=== PATIENT | female | born 1970 | race African-American/Black ===

== ENCOUNTER 2016-12-24 06:55 | Day surgery (SDC) | payer MEDICARE, OTHER ==
[2016-12-22 08:28] VITALS: BMI 36.6
[~2016-12-24 06:55] MED LIST: LACTATED RINGERS 1,000 ML IV SCH
[2016-12-24] MEDS ORDERED: LACTATED RINGERS 1,000 ML IV ONE (07:43)
[2016-12-24 07:49] VITALS: TEMP 97.7
[2016-12-24 08:07] LABS: Glucose,Whole Blood 82 mg/dL (75-99)
[2016-12-24] MEDS ORDERED: LIDOCAINE 1% INJ 10MG/ML (20 ML MDV) ONE (08:08)
[2016-12-24] MEDS ORDERED: PROPOFOL 10 MG/ML 20 ML VIAL IV ONE (08:08)
--- NOTE | 2016-12-24 08:10 | P.GSHP ---
History of Present Illness H&P Date: 12/24/16 Chief Complaint: Change in bowel habits Patient here today for colonoscopy. She's been having frequent episodes bloating constipation and some diarrhea at times. Denies rectal bleeding. No prior colonoscopy. Past Medical History Past Medical History: Asthma, Diabetes Mellitus, Fibromyalgia, Pulmonary Embolus (PE), Sleep Apnea/CPAP/BIPAP, Thyroid Disorder Additional Past Medical History / Comment(s): OSAmaintained on CPAP pressure of 10 cm of water, morbid obesity. HX PE AFTER HYSTERECTOMY 2013 History of Any Multi-Drug Resistant Organisms: None Reported Past Surgical History: Back Surgery, Bariatric Surgery, Section, Hysterectomy, Tubal Ligation Additional Past Surgical History / Comment(s): LAP BAND 2007, THYROIDECTOMY, Repair of left ureter Past Anesthesia/Blood Transfusion Reactions: No Reported Reaction Smoking Status: Never smoker - Past Family History Mother Family Medical History: No Reported History Medications and Allergies Home Medications Medication Instructions Recorded Confirmed Type metFORMIN HCL 1,000 mg PO BID 03/09/14 12/24/16 History Cholecalciferol [Vitamin D3] 2,000 unit PO DAILY 05/14/16 12/24/16 History Cyanocobalamin [Vitamin B-12] 500 mcg PO DAILY 05/14/16 12/24/16 History FLUoxetine HCL [PROzac] 40 mg PO DAILY 05/14/16 12/24/16 History INSULIN LISPRO (For Pump) [humaLOG 0.01 units SQ-PUMP CONTINUOUS 05/14/16 History (For Pump)] Biotin 300 mcg PO HS 12/22/16 12/24/16 History Ibuprofen [Motrin] 800 mg PO Q8H PRN 12/22/16 12/24/16 History Levothyroxine Sodium [Synthroid] 150 mcg PO DAILY 12/22/16 12/24/16 History Magnesium Gluconate [Magonate] 500 mg PO DAILY 12/22/16 12/24/16 History Multivit-Min36/Iron/Folic Acid 1 each PO HS 12/22/16 12/24/16 History [Geritol Complete Tablet] Omeprazole 40 mg PO DAILY 12/22/16 12/24/16 History Pioglitazone [Actos] 30 mg PO DAILY 12/22/16 12/24/16 History Allergies Allergy/AdvReac Type Severity Reaction Status Date / Time No Known Allergies Allergy Verified 12/24/16 07:50 Surgical - Exam Vital Signs Temp Pulse Resp BP Pulse Ox 97.7 F 68 18 111/73 99 12/24/16 07:47 12/24/16 07:47 12/24/16 07:47 12/24/16 07:47 12/24/16 07:47 Physical exam: General: Well-developed, well-nourished HEENT: Normocephalic, sclerae nonicteric Abdomen: Nontender, nondistended Extremities: No edema Neuro: Alert and oriented Assessment and Plan (1) Change in bowel habits Narrative/Plan: Will proceed with colonoscopy at this Status: Acute
--- NOTE | 2016-12-24 08:22 | P.PCN ---
Date of Procedure: 12/24/16 Preoperative Diagnosis: Postoperative Diagnosis: Procedure(s) Performed: PREOPERATIVE DIAGNOSIS: Change in bowel habits POSTOPERATIVE DIAGNOSIS: Normal exam PROCEDURE: Colonoscopy ANESTHESIA: MAC SURGEON: Edenilson Judge M.D. SPECIMENS: None ENDOSCOPIC PROCEDURE: The patient was placed on the endoscopy table in the left decubitus position. The Olympus colonoscope was inserted into the anus and passed under direct visualization to the base of the cecum. The appendiceal orifice was visualized. From that point the scope was slowly withdrawn inspecting all surfaces carefully. There were no neoplastic inflammatory or polypoid lesions throughout the cecum, ascending, transverse, descending, sigmoid and rectum. There was no diverticulosis noted. Digital rectal examination was normal. The patient was taken to the recovery room in stable condition per anesthesia guidelines. RECOMMENDATIONS: Increase fiber. Follow-up colonoscopy 10 years. Implants: Indications for Procedure: Operative Findings: Description of Procedure:
[2016-12-24 08:37] VITALS: RESP 18
[2016-12-24 08:55] LABS: Glucose,Whole Blood 79 mg/dL (75-99)
[2016-12-24 09:24] VITALS: BP 111/65; PULSE 70
== END 2016-12-24 11:30 | disposition home or self-care (01) ==
LOC: ORWHC2ENDO 06:55
PROVIDERS: ATTEND Surgery
DX: R19.4 Change in bowel habit (principal); J45.909 Unspecified asthma, uncomplicated; E11.9 Type 2 diabetes mellitus without complications; Z79.4 Long term (current) use of insulin; Z79.84 Long term (current) use of oral hypoglycemic drugs; M79.7 Fibromyalgia; G47.33 Obstructive sleep apnea (adult) (pediatric); Z99.89 Dependence on other enabling machines and devices; E07.9 Disorder of thyroid, unspecified; Z79.1 Long term (current) use of non-steroidal anti-inflammatories (NSAID); Z79.899 Other long term (current) drug therapy
CPT/HCPCS: 45378; J2001; J2704

== ENCOUNTER 2017-05-10 10:39 | Emergency (ER) | payer MEDICARE, OTHER ==
[2017-05-10] MEDS ORDERED: ONDANSETRON 4 MG/2 ML VIAL IVP STA (11:10)
[2017-05-10] MEDS ORDERED: SODIUM CHLORIDE 0.9% 500 ML IV STA (11:10)
[2017-05-10] MEDS ORDERED: HYDROmorphone 0.5 MG/0.5 ML SYRINGE IVP STA (11:10)
[2017-05-10] MEDS ORDERED: PANTOPRAZOLE 40 MG/10 ML VIAL IVP STA (11:10)
[2017-05-10] MEDS ORDERED: SODIUM CHLORIDE 0.9% 1,000 ML IV STA (11:10)
[2017-05-10 11:24] LABS: Glucose,Whole Blood 112 mg/dL (75-99)
[2017-05-10 11:27] LABS: Basophils # (A) 0.1 k/uL (0-0.2); Basophils % (A) 1 %; CH 29.4; CHCM 31.8; Eosinophils # (A) 0.1 k/uL (0-0.7); Eosinophils % (A) 1 %; HDW 2.19; HGB 13.4 gm/dL (11.4-16.0); Luc # (Auto) 0.09; Luc % (Auto) 1; Lymphocytes # (A) 1.4 k/uL (1.0-4.8); Lymphocytes % (A) 12 %; MCH 29.7 pg (25.0-35.0); MCV 92.8 fL (80.0-100.0); Mean Platelet Volume 7.8; Monocytes # (A) 0.5 k/uL (0-1.0); Monocytes % (A) 4 %; Neutrophils # (A) 9.3 k/uL (1.3-7.7); Neutrophils % (A) 82 %; RBC 4.53 m/uL (3.80-5.40); RDW 14.2 % (11.5-15.5); WBC 11.3 k/uL (3.8-10.6)
[2017-05-10 11:34] LABS: ALT 31 U/L (9-52); AST 21 U/L (14-36); Alkaline Phosphatase 75 U/L (38-126); Amylase 59 U/L (30-110); Anion Gap 10 mmol/L; Blood Urea Nitrogen 12 mg/dL (7-17); Calcium 9.6 mg/dL (8.4-10.2); Carbon Dioxide 23 mmol/L (22-30); Chloride 104 mmol/L (98-107); Glucose 123 mg/dL (74-99); Non-African American GFR(MDRD) >60 (>60 ml/min/1.73 sqM); Potassium 4.6 mmol/L (3.5-5.1); Sodium 137 mmol/L (137-145); Total Bilirubin 0.3 mg/dL (0.2-1.3); Total Protein 7.7 g/dL (6.3-8.2)
--- NOTE | 2017-05-10 11:44 | XR ---
EXAMINATION TYPE: XR abdomen 2V , 2 VIEWS DATE OF EXAM ORDERED: 05/10/2017 HISTORY: abdominal pain. COMPARISON: Previous study dated 05/14/2016. FINDINGS: The lung bases are clear. There is been a previous interpedicular fusion at L4, L5 and S1. There is a lap band in place. Positi oning appears unremarkable. The abdominal gas pattern is within normal limits. There is no evidence of obstruction or free air. T here are scattered air-fluid levels. No unusual calcifications are seen. IMPRESSION: FINDINGS CONSISTENT WITH MILD ILEUS.
[2017-05-10 12:06] LABS: Prothrombin Time 10.6 sec (9.0-12.0)
[2017-05-10 12:09] LABS: Appearance,Urine Clear (Clear); Bilirubin,Urine Negative (Negative); Glucose,Urine (UA) Negative (Negative); Ketones,Urine Negative (Negative); Leukocyte Esterase,Urine Negative (Negative); Nitrite,Urine Negative (Negative); Protein,Urine Trace (Negative); Specific Gravity,Urine 1.015 (1.001-1.035); UA Billing (MACRO vs. MICRO) CHEM; Urobilinogen,Urine <2.0 mg/dL (<2.0)
[2017-05-10 12:46] VITALS: RESP 18
--- NOTE | 2017-05-10 13:55 | ED ---
General Adult HPI - General Chief complaint: Abdominal Pain Stated complaint: abdominal pain Time Seen by Provider: 05/10/17 10:52 Source: patient, RN notes reviewed, old records reviewed Mode of arrival: ambulatory Limitations: no limitations - History of Present Illness Initial comments: Chief complaint history of present illness is a 47-year-old female with a history of diabetes. She's also had a history of gastroparesis. Patient reports morning when she awakened she ate some food and then vomited soon thereafter had a sharp pain in the epigastric region. She states when she stands up straight and stretches her abdomen in the epigastric region and hurts. When she eats it was causing discomfort. - Related Data Home Medications Medication Instructions Recorded Confirmed metFORMIN HCL 1,000 mg PO BID 03/09/14 05/10/17 FLUoxetine HCL [PROzac] 40 mg PO DAILY 05/14/16 05/10/17 Ibuprofen [Motrin] 800 mg PO Q8H PRN 12/22/16 05/10/17 Multivit-Min36/Iron/Folic Acid 1 tab PO HS 12/22/16 05/10/17 [Geritol Complete Tablet] Omeprazole 40 mg PO DAILY 12/22/16 05/10/17 Pioglitazone [Actos] 30 mg PO DAILY 12/22/16 05/10/17 Cholecalciferol (Vitamin D3) 10,000 unit PO DAILY 05/10/17 05/10/17 [Vitamin D3] DULoxetine HCL [Cymbalta] 60 mg PO DAILY 05/10/17 05/10/17 HYDROcodone/APAP 10-325MG [[place] 1 tab PO Q6H PRN 05/10/17 05/10/17 10-325] INSULIN LISPRO (humaLOG) [humaLOG] See Protocol SQ AC-TID 05/10/17 05/10/17 Levothyroxine Sodium [Synthroid] 175 mcg PO DAILY 05/10/17 05/10/17 Liraglutide [Victoza 2-Soham] 1.8 mg SQ DAILY 05/10/17 05/10/17 Magnesium Oxide [Mag-Ox] 250 mg PO DAILY 05/10/17 05/10/17 Melatonin 5 mg PO HS 05/10/17 05/10/17 Montelukast [Singulair] 10 mg PO HS 05/10/17 05/10/17 Vitamin C/Biotin [Hair, Skin and 1 tab PO DAILY 05/10/17 05/10/17 Nails] tiZANidine [Zanaflex] 4 mg PO HS PRN 05/10/17 05/10/17 Previous Rx's Medication Instructions Recorded Metoclopramide HCl [Reglan] 5 mg PO AC-TID #90 tablet 05/10/17 Allergies Allergy/AdvReac Type Severity Reaction Status Date / Time No Known Allergies Allergy Verified 05/10/17 11:10 Review of Systems ROS Statement: Those systems with pertinent positive or pertinent negative responses have been documented in the HPI. Review of systems no headache no chest pain no shortness of breath she has epigastric discomfort when she eats and when she stands up straight. She did vomit there is no evidence of any blood in the vomitus. No black stool. She has normal bowel movements daily. No complaint of any neuro deficits. All systems are reviewed. Past medical problems significant for asthma, insulin- dependent diabetes mellitus, fibromyalgia, pulmonary embolism after having had a partial hysterectomy. Hypothyroidism, sleep disorder,. The patient never smoked. Drinks alcohol only on occasion. Her surgeries include back surgery, bariatric surgery. Patient's had 2 C-sections partial hysterectomy, preceded by tubal ligation in the LAP-BAND was done at 2007. Family history no cancers. Others have had high blood pressure diabetes. Patient denies any ALLERGIES. ROS Other: All systems not noted in ROS Statement are negative. Past Medical History Past Medical History: Asthma, Diabetes Mellitus, Fibromyalgia, Pulmonary Embolus (PE), Sleep Apnea/CPAP/BIPAP, Thyroid Disorder Additional Past Medical History / Comment(s): OSAmaintained on CPAP pressure of 10 cm of water, morbid obesity. HX PE AFTER HYSTERECTOMY 2013 History of Any Multi-Drug Resistant Organisms: None Reported Past Surgical History: Back Surgery, Bariatric Surgery, Section, Hysterectomy, Tubal Ligation Additional Past Surgical History / Comment(s): LAP BAND 2007, THYROIDECTOMY, Repair of left ureter Past Anesthesia/Blood Transfusion Reactions: No Reported Reaction Past Psychological History: Anxiety, Depression Smoking Status: Never smoker Past Alcohol Use History: Occasional Past Drug Use History: None Reported - Past Family History Mother Family Medical History: No Reported History General Exam - General Exam Comments Initial Comments: General: The patient is awake and alert, complains of epigastric discomfort when she pushes on the epigastrium or when she stands up straight and stretches. Otherwise when she lays down with herself slightly bent over she has no discomfort. Vital signs temperature 100 pulse 11 respiratory rate 16 pulse ox 90% room air blood pressure 115/72. Patient reports in the past she's had this same problem which turned out to be gastroparesis she had low-grade temperature as well. Denies any other reason for a fever. Eye: Pupils are equal, round and reactive to light, extra-ocular movements are intact ; there is normal conjunctiva bilaterally. No signs of icterus. Ears, nose, mouth and throat: There are moist mucous membranes and no oral lesions. Neck: The neck is supple, there is no tenderness, thyroid not enlarged, no anterior cervical lymphadenopathy. Cardiovascular: There is a regular rate and rhythm. No murmur, rub or gallop is appreciated. Respiratory: Lungs are clear to auscultation, respirations are non-labored, breath sounds are equal. No wheezes, stridor, rales, or rhonchi. Gastrointestinal: Epigastric discomfort to deep palpation. Slightly hypoactive bowel sounds. No back pain at this time. No organomegaly. Back: There is no tenderness to palpation in the midline. There is no obvious deformity. Musculoskeletal: Normal ROM, no tenderness, There is no pedal edema. There is no calf tenderness or swelling. Sensation intact. Neurological: No evidence of or any complaints of any neuro deficits. Skin: Skin is warm and dry and no rashes or lesions are noted. Psychiatric: Patient's cooperative, appropriate mood and affect. Limitations: no limitations Course Vital Signs 05/10/17 05/10/17 05/10/17 10:47 12:44 13:17 Temperature 100 F H 99.5 F 98.6 F Pulse Rate 101 H 60 84 Respiratory 16 18 18 Rate Blood Pressure 115/72 118/65 140/66 O2 Sat by Pulse 98 97 97 Oximetry Medical Decision Making - Medical Decision Making Rectal decision making; patient's white count 11.3 hemoglobin 13 hematocrit of 42 with a potassium 4.6 BUN 12 creatinine 0.7 and GFR greater than 60. Glucose 123. Amylase lipase normal limits. Plasma lactic acid 1.5. Troponin less than 0.012. Patient's resting comfortably after receiving IV medications including Reglan. Patient reports in the past she is take Reglan regularly which controlled her gastroparesis. But she eventually stopped taking several months because her physician said she may develop toward dyskinesia. The patient will be following up with her family physician but she will be restarted on the Reglan at this time for resolution of her discomfort. The patient was able to drink fluids in emergency room without discomfort. Patient states she is willing rated go home follow-up with family physician. - Lab Data Result diagrams: 05/10/17 11:15 05/10/17 11:15 Lab Results 05/10/17 05/10/17 05/10/17 Range/Units 11:12 11:15 11:15 WBC 11.3 H (3.8-10.6) k/uL RBC 4.53 (3.80-5.40) m/uL Hgb 13.4 (11.4-16.0) gm/dL Hct 42.0 (34.0-46.0) % MCV 92.8 (80.0-100.0) fL MCH 29.7 (25.0-35.0) pg MCHC 32.0 (31.0-37.0) g/dL RDW 14.2 (11.5-15.5) % Plt Count 302 (150-450) k/uL Neutrophils % 82 % Lymphocytes % 12 % Monocytes % 4 % Eosinophils % 1 % Basophils % 1 % Neutrophils # 9.3 H (1.3-7.7) k/uL Lymphocytes # 1.4 (1.0-4.8) k/uL Monocytes # 0.5 (0-1.0) k/uL Eosinophils # 0.1 (0-0.7) k/uL Basophils # 0.1 (0-0.2) k/uL PT (9.0-12.0) sec INR (<1.2) Sodium 137 (137-145) mmol/L Potassium 4.6 (3.5-5.1) mmol/L Chloride 104 (98-107) mmol/L Carbon Dioxide 23 (22-30) mmol/L Anion Gap 10 mmol/L BUN 12 (7-17) mg/dL Creatinine 0.70 (0.52-1.04) mg/dL Est GFR (MDRD) Af Amer >60 (>60 ml/min/1.73 sqM) Est GFR (MDRD) Non-Af >60 (>60 ml/min/1.73 sqM) Glucose 123 H (74-99) mg/dL POC Glucose (mg/dL) 112 H (75-99) mg/dL POC Glu Zipper Lining Folder ID Zeina Morales Plasma Lactic Acid [place] (0.7-2.0) mmol/L Calcium 9.6 (8.4-10.2) mg/dL Total Bilirubin 0.3 (0.2-1.3) mg/dL AST 21 (14-36) U/L ALT 31 (9-52) U/L Alkaline Phosphatase 75 (38-126) U/L Troponin I (0.000-0.034) ng/mL Total Protein 7.7 (6.3-8.2) g/dL Albumin 3.9 (3.5-5.0) g/dL Amylase 59 (30-110) U/L Lipase 94 (23-300) U/L Urine Color Urine Appearance (Clear) Urine pH (5.0-8.0) Ur Specific [place] (1.001-1.035) Urine Protein (Negative) Urine Glucose (UA) (Negative) Urine Ketones (Negative) Urine Blood (Negative) Urine Nitrite (Negative) Urine Bilirubin (Negative) Urine Urobilinogen (<2.0) mg/dL Ur Leukocyte Esterase (Negative) 05/10/17 05/10/17 05/10/17 Range/Units 11:15 11:15 11:15 WBC (3.8-10.6) k/uL RBC (3.80-5.40) m/uL Hgb (11.4-16.0) gm/dL Hct (34.0-46.0) % MCV (80.0-100.0) fL MCH (25.0-35.0) pg MCHC (31.0-37.0) g/dL RDW (11.5-15.5) % Plt Count (150-450) k/uL Neutrophils % % Lymphocytes % % Monocytes % % Eosinophils % % Basophils % % Neutrophils # (1.3-7.7) k/uL Lymphocytes # (1.0-4.8) k/uL Monocytes # (0-1.0) k/uL Eosinophils # (0-0.7) k/uL Basophils # (0-0.2) k/uL PT 10.6 (9.0-12.0) sec INR 1.0 (<1.2) Sodium (137-145) mmol/L Potassium (3.5-5.1) mmol/L Chloride (98-107) mmol/L Carbon Dioxide (22-30) mmol/L Anion Gap mmol/L BUN (7-17) mg/dL Creatinine (0.52-1.04) mg/dL Est GFR (MDRD) Af Amer (>60 ml/min/1.73 sqM) Est GFR (MDRD) Non-Af (>60 ml/min/1.73 sqM) Glucose (74-99) mg/dL POC Glucose (mg/dL) (75-99) mg/dL POC Glu Zipper Lining Folder ID Plasma Lactic Acid [place] 1.5 (0.7-2.0) mmol/L Calcium (8.4-10.2) mg/dL Total Bilirubin (0.2-1.3) mg/dL AST (14-36) U/L ALT (9-52) U/L Alkaline Phosphatase (38-126) U/L Troponin I <0.012 (0.000-0.034) ng/mL Total Protein (6.3-8.2) g/dL Albumin (3.5-5.0) g/dL Amylase (30-110) U/L Lipase (23-300) U/L Urine Color Urine Appearance (Clear) Urine pH (5.0-8.0) Ur Specific [place] (1.001-1.035) Urine Protein (Negative) Urine Glucose (UA) (Negative) Urine Ketones (Negative) Urine Blood (Negative) Urine Nitrite (Negative) Urine Bilirubin (Negative) Urine Urobilinogen (<2.0) mg/dL Ur Leukocyte Esterase (Negative) 05/10/17 Range/Units 11:15 WBC (3.8-10.6) k/uL RBC (3.80-5.40) m/uL Hgb (11.4-16.0) gm/dL Hct (34.0-46.0) % MCV (80.0-100.0) fL MCH (25.0-35.0) pg MCHC (31.0-37.0) g/dL RDW (11.5-15.5) % Plt Count (150-450) k/uL Neutrophils % % Lymphocytes % % Monocytes % % Eosinophils % % Basophils % % Neutrophils # (1.3-7.7) k/uL Lymphocytes # (1.0-4.8) k/uL Monocytes # (0-1.0) k/uL Eosinophils # (0-0.7) k/uL Basophils # (0-0.2) k/uL PT (9.0-12.0) sec INR (<1.2) Sodium (137-145) mmol/L Potassium (3.5-5.1) mmol/L Chloride (98-107) mmol/L Carbon Dioxide (22-30) mmol/L Anion Gap mmol/L BUN (7-17) mg/dL Creatinine (0.52-1.04) mg/dL Est GFR (MDRD) Af Amer (>60 ml/min/1.73 sqM) Est GFR (MDRD) Non-Af (>60 ml/min/1.73 sqM) Glucose (74-99) mg/dL POC Glucose (mg/dL) (75-99) mg/dL POC Glu Zipper Lining Folder ID Plasma Lactic Acid [place] (0.7-2.0) mmol/L Calcium (8.4-10.2) mg/dL Total Bilirubin (0.2-1.3) mg/dL AST (14-36) U/L ALT (9-52) U/L Alkaline Phosphatase (38-126) U/L Troponin I (0.000-0.034) ng/mL Total Protein (6.3-8.2) g/dL Albumin (3.5-5.0) g/dL Amylase (30-110) U/L Lipase (23-300) U/L Urine Color Yellow Urine Appearance Clear (Clear) Urine pH 8.0 (5.0-8.0) Ur Specific [place] 1.015 (1.001-1.035) Urine Protein Trace H (Negative) Urine Glucose (UA) Negative (Negative) Urine Ketones Negative (Negative) Urine Blood Negative (Negative) Urine Nitrite Negative (Negative) Urine Bilirubin Negative (Negative) Urine Urobilinogen <2.0 (<2.0) mg/dL Ur Leukocyte Esterase Negative (Negative) Disposition Clinical Impression: Gastroparesis diabeticorum Disposition: HOME SELF-CARE Condition: Stable Instructions: Acute Nausea and Vomiting (ED), Gastroparesis (ED) Additional Instructions: Use Reglan 5 mg 20 minutes prior to eating. Follow-up with family physician. Return emergency room as needed Prescriptions: Metoclopramide HCl [Reglan] 5 mg PO AC-TID #90 tablet Referrals: Kelly Dent MD [Primary Care Provider] - 1-2 days Time of Disposition: 14:00
[2017-05-10 14:09] VITALS: BP 131/66; PULSE 80; TEMP 98
== END 2017-05-10 14:09 | disposition home or self-care (01) ==
LOC: EC 10:39
DX: E11.43 Type 2 diabetes mellitus with diabetic autonomic (poly)neuropathy (principal); K31.84 Gastroparesis; F32.9 Major depressive disorder, single episode, unspecified; F41.9 Anxiety disorder, unspecified; E66.01 Morbid (severe) obesity due to excess calories; J45.909 Unspecified asthma, uncomplicated; E07.9 Disorder of thyroid, unspecified; Z98.84 Bariatric surgery status; Z68.36 Body mass index [BMI] 36.0-36.9, adult; Z79.84 Long term (current) use of oral hypoglycemic drugs; Z79.4 Long term (current) use of insulin; Z79.899 Other long term (current) drug therapy
CPT/HCPCS: 99284; 96374; 96375 ×2; 96361 ×2; 36415; 80053; 82150; 83605; 83690; 84484; 85025; 85610; 81003; 87086; 74020; J2405; C9113; J1170

== ENCOUNTER 2017-10-27 20:18 | Observation (INO) | payer MEDICARE, OTHER ==
[2017-10-27] MEDS ORDERED: SODIUM CHLORIDE 0.9% 1,000 ML IV STA (20:49)
[2017-10-27] MEDS ORDERED: RX INFO: IV CONTRAST WAS GIVEN 1 EACH MISC MISCELLANE PRN (20:49)
[2017-10-27] MEDS ORDERED: MORPHINE SULFATE 4 MG/ML SYRINGE IV STA (20:49)
[2017-10-27] MEDS ORDERED: ONDANSETRON 4 MG/2 ML VIAL IVP STA (20:49)
[2017-10-27] MEDS ORDERED: IBUPROFEN 600 MG TAB PO STA (20:51)
[2017-10-27] MEDS ORDERED: ACETAMINOPHEN TAB 500 MG TAB PO STA (20:51)
--- NOTE | 2017-10-27 21:18 | ED ---
Abdominal Pain HPI - General Source: patient, RN notes reviewed, old records reviewed Mode of arrival: ambulatory Limitations: no limitations <Lisseth Joiner - Last Filed: 10/28/17 12:16> <Johnathan Lr - Last Filed: 10/31/17 14:40> - General Chief Complaint: Abdominal Pain Stated Complaint: flank pain/SOB Time Seen by Provider: 10/27/17 20:41 - History of Present Illness Initial Comments: 47-year-old female presents to the chief complaint of 2 days of right lower quadrant abdominal pain. She reports it started yesterday evening was having hard time sleeping. She states that throughout the day at work and was becoming progressively worse and she has had be somewhat stooped over to help with the pain. Worse with going over bumps in the car. She reports she also has had a fever. Normal bowel habits and urination. No diarrhea or bloody stools. Surgical history includes pancreatic the otitis surgery in 1983, section, bariatric surgery. Patient does have a history of diabetes. ( Lisseth Joiner) - Related Data Home Medications Medication Instructions Recorded Confirmed metFORMIN HCL 1,000 mg PO TID 03/09/14 10/27/17 FLUoxetine HCL [PROzac] 40 mg PO DAILY 05/14/16 10/27/17 Multivit-Min36/Iron/Folic Acid 1 tab PO HS 12/22/16 10/27/17 [Geritol Complete Tablet] DULoxetine HCL [Cymbalta] 60 mg PO DAILY 05/10/17 10/27/17 INSULIN LISPRO (humaLOG) [humaLOG] See Protocol SQ AC-TID 05/10/17 10/27/17 Liraglutide [Victoza 2-Soham] 1.8 mg SQ DAILY 05/10/17 10/27/17 Montelukast [Singulair] 10 mg PO HS 05/10/17 10/27/17 tiZANidine [Zanaflex] 4 mg PO HS 05/10/17 10/27/17 Ascorbic Acid [Vitamin C] 1,000 mg PO DAILY 10/27/17 10/27/17 Cyanocobalamin (Vitamin B-12) 1,000 mcg PO DAILY 10/27/17 10/27/17 [Vitamin B-12] Fluconazole [Diflucan] 100 mg PO DAILY 10/27/17 10/27/17 Gabapentin [Neurontin] 300 mg PO BID 10/27/17 10/27/17 Levothyroxine Sodium [Synthroid] 150 mcg PO DAILY 10/27/17 10/27/17 Linaclotide [Linzess] 72 mcg PO DAILY 10/27/17 10/27/17 Pioglitazone [Actos] 45 mg PO DAILY 10/27/17 10/27/17 Vitamin D3(Unknown Dose) 1 tab PO DAILY 10/27/17 10/27/17 Vitamin E 180mg 180 mg PO DAILY 10/27/17 10/27/17 busPIRone HCL 15 mg PO BID 10/27/17 10/27/17 Previous Rx's Medication Instructions Recorded Amoxicillin/Potassium Clav 1 each PO Q12HR #14 tab 10/30/17 [Augmentin 875-125 Tablet] HYDROcodone/APAP 7.5-325MG [[place] 1 tab PO Q6HR PRN 3 Days #12 tab 10/30/17 7.5-325] Allergies Allergy/AdvReac Type Severity Reaction Status Date / Time No Known Allergies Allergy Verified 10/27/17 21:26 Review of Systems ROS Other: All systems not noted in ROS Statement are negative. <Lisseth Joiner - Last Filed: 10/28/17 12:16> ROS Other: All systems not noted in ROS Statement are negative. <Johnathan Lr - Last Filed: 10/31/17 14:40> ROS Statement: Those systems with pertinent positive or pertinent negative responses have been documented in the HPI. Past Medical History Past Medical History: Asthma, Diabetes Mellitus, Fibromyalgia, Pulmonary Embolus (PE), Sleep Apnea/CPAP/BIPAP, Thyroid Disorder Additional Past Medical History / Comment(s): OSAmaintained on CPAP pressure of 10 cm of water, morbid obesity. HX PE AFTER HYSTERECTOMY 2014 History of Any Multi-Drug Resistant Organisms: None Reported Past Surgical History: Back Surgery, Bariatric Surgery, Section, Hysterectomy, Tubal Ligation Additional Past Surgical History / Comment(s): LAP BAND 2008, THYROIDECTOMY, Repair of left ureter Past Anesthesia/Blood Transfusion Reactions: No Reported Reaction Past Psychological History: Anxiety, Depression Smoking Status: Never smoker Past Alcohol Use History: Occasional Past Drug Use History: None Reported - Past Family History Mother Family Medical History: No Reported History <Lisseth Joiner - Last Filed: 10/28/17 12:16> General Exam Limitations: no limitations General appearance: alert, in no apparent distress Head exam: Present: atraumatic, normocephalic, normal inspection Eye exam: Present: normal appearance, PERRL, EOMI. Absent: scleral icterus, conjunctival injection, periorbital swelling ENT exam: Present: normal exam, mucous membranes moist Neck exam: Present: normal inspection. Absent: tenderness, meningismus, lymphadenopathy Respiratory exam: Present: normal lung sounds bilaterally. Absent: respiratory distress, wheezes, rales, rhonchi, stridor Cardiovascular Exam: Present: regular rate, normal rhythm, normal heart sounds. Absent: systolic murmur, diastolic murmur, rubs, gallop, clicks GI/Abdominal exam: Present: soft, tenderness (Right lower quadrant tenderness and guarding.), normal bowel sounds, other (Scars over the abdomen.). Absent: distended, guarding, rebound, rigid Extremities exam: Present: normal inspection, full ROM, normal capillary refill. Absent: tenderness, pedal edema, joint swelling, calf tenderness Back exam: Present: normal inspection Neurological exam: Present: alert, oriented X3, CN II-XII intact Psychiatric exam: Present: normal affect, normal mood Skin exam: Present: warm, dry, intact, normal color. Absent: rash <Lisseth Joiner - Last Filed: 10/28/17 12:16> <Johnathan Lr - Last Filed: 10/31/17 14:40> - General Exam Comments Initial Comments: 47-year-old female. No distress. (Lisseth Joiner) Vital Signs 10/27/17 10/27/17 10/28/17 20:31 22:00 00:15 Temperature 101.1 F H 99.1 F 98.9 F Pulse Rate 102 H 94 93 Respiratory 18 18 18 Rate Blood Pressure 112/67 135/72 119/72 O2 Sat by Pulse 99 98 99 Oximetry 10/28/17 10/28/17 00:59 01:32 Temperature 98.1 F Pulse Rate 90 89 Respiratory 16 16 Rate Blood Pressure 127/70 135/81 O2 Sat by Pulse 99 100 Oximetry Medical Decision Making - Lab Data Result diagrams: 10/28/17 08:06 10/27/17 20:59 - Radiology Data Radiology results: report reviewed <Lisseth Joiner - Last Filed: 10/28/17 12:16> - Lab Data Result diagrams: 10/29/17 06:51 10/29/17 06:51 <Johnathan Lr - Last Filed: 10/31/17 14:40> - Medical Decision Making 47-year-old female presents to the chief complaint of 2 days of right lower quadrant abdominal pain. She reports it started yesterday evening was having hard time sleeping. She states that throughout the day at work and was becoming progressively worse and she has had be somewhat stooped over to help with the pain. Worse with going over bumps in the car. She reports she also has had a fever. Patient had signifcant RLQ tendenress. Give IV fluids and labs obtained. WBC mildly elevated 12,000. Patient has elevated lactic at 2.1. Given 2L bolus and maintence fluids. Patient CT did not show appendicitis, or other complicating factors for RLQ pain. Given fever, and clinical presentation with RLQ pain would like to admit for repeat WBC and surgical consultation. Patient agrees to admission. (Lisseth Joiner) I saw this patient in conjunction with the physician retail assistant store manager. I performed independent history and physical exam. Agree with case management. (Johnathan Lr) - Lab Data Lab Results 10/27/17 10/27/17 10/27/17 Range/Units 20:52 20:59 20:59 WBC 12.0 H (3.8-10.6) k/uL RBC 4.46 (3.80-5.40) m/uL Hgb 12.8 (11.4-16.0) gm/dL Hct 39.6 (34.0-46.0) % MCV 88.9 (80.0-100.0) fL MCH 28.8 (25.0-35.0) pg MCHC 32.4 (31.0-37.0) g/dL RDW 13.4 (11.5-15.5) % Plt Count 328 (150-450) k/uL Neutrophils % 70 % Lymphocytes % 21 % Monocytes % 5 % Eosinophils % 3 % Basophils % 0 % Neutrophils # 8.4 H (1.3-7.7) k/uL Lymphocytes # 2.5 (1.0-4.8) k/uL Monocytes # 0.6 (0-1.0) k/uL Eosinophils # 0.4 (0-0.7) k/uL Basophils # 0.0 (0-0.2) k/uL PT (9.0-12.0) sec INR (<1.2) APTT (22.0-30.0) sec Sodium 137 (137-145) mmol/L Potassium 4.3 (3.5-5.1) mmol/L Chloride 97 L (98-107) mmol/L Carbon Dioxide 26 (22-30) mmol/L Anion Gap 14 mmol/L BUN 16 (7-17) mg/dL Creatinine 0.61 (0.52-1.04) mg/dL Est GFR (CKD-EPI)AfAm >90 (>60 ml/min/1.73 sqM) Est GFR (CKD-EPI)NonAf >90 (>60 ml/min/1.73 sqM) Glucose 189 H (74-99) mg/dL Lactic Ac Sepsis Rflx Plasma Lactic Acid [place] (0.7-2.0) mmol/L Calcium 9.6 (8.4-10.2) mg/dL Total Bilirubin 0.3 (0.2-1.3) mg/dL AST 21 (14-36) U/L ALT 26 (9-52) U/L Alkaline Phosphatase 88 (38-126) U/L Total Protein 7.6 (6.3-8.2) g/dL Albumin 4.1 (3.5-5.0) g/dL Amylase 57 (30-110) U/L Lipase 103 (23-300) U/L Urine Color Yellow Urine Appearance Clear (Clear) Urine pH 6.5 (5.0-8.0) Ur Specific [place] 1.023 (1.001-1.035) Urine Protein Trace H (Negative) Urine Glucose (UA) Trace H (Negative) Urine Ketones Negative (Negative) Urine Blood Negative (Negative) Urine Nitrite Negative (Negative) Urine Bilirubin Negative (Negative) Urine Urobilinogen 2.0 (<2.0) mg/dL Ur Leukocyte Esterase Negative (Negative) Blood Type Blood Type Recheck Antibody Screen Spec Expiration Date 10/27/17 10/27/17 10/27/17 Range/Units 20:59 20:59 20:59 WBC (3.8-10.6) k/uL RBC (3.80-5.40) m/uL Hgb (11.4-16.0) gm/dL Hct (34.0-46.0) % MCV (80.0-100.0) fL MCH (25.0-35.0) pg MCHC (31.0-37.0) g/dL RDW (11.5-15.5) % Plt Count (150-450) k/uL Neutrophils % % Lymphocytes % % Monocytes % % Eosinophils % % Basophils % % Neutrophils # (1.3-7.7) k/uL Lymphocytes # (1.0-4.8) k/uL Monocytes # (0-1.0) k/uL Eosinophils # (0-0.7) k/uL Basophils # (0-0.2) k/uL PT 10.2 (9.0-12.0) sec INR 1.0 (<1.2) APTT 23.3 (22.0-30.0) sec Sodium (137-145) mmol/L Potassium (3.5-5.1) mmol/L Chloride (98-107) mmol/L Carbon Dioxide (22-30) mmol/L Anion Gap mmol/L BUN (7-17) mg/dL Creatinine (0.52-1.04) mg/dL Est GFR (CKD-EPI)AfAm (>60 ml/min/1.73 sqM) Est GFR (CKD-EPI)NonAf (>60 ml/min/1.73 sqM) Glucose (74-99) mg/dL Lactic Ac Sepsis Rflx Plasma Lactic Acid [place] 2.1 H* (0.7-2.0) mmol/L Calcium (8.4-10.2) mg/dL Total Bilirubin (0.2-1.3) mg/dL AST (14-36) U/L ALT (9-52) U/L Alkaline Phosphatase (38-126) U/L Total Protein (6.3-8.2) g/dL Albumin (3.5-5.0) g/dL Amylase (30-110) U/L Lipase (23-300) U/L Urine Color Urine Appearance (Clear) Urine pH (5.0-8.0) Ur Specific [place] (1.001-1.035) Urine Protein (Negative) Urine Glucose (UA) (Negative) Urine Ketones (Negative) Urine Blood (Negative) Urine Nitrite (Negative) Urine Bilirubin (Negative) Urine Urobilinogen (<2.0) mg/dL Ur Leukocyte Esterase (Negative) Blood Type O Positive Blood Type Recheck No Antibody Screen NEGATIVE Spec Expiration Date 10/30/2017 - 235810/27/17 Range/Units 21:56 WBC (3.8-10.6) k/uL RBC (3.80-5.40) m/uL Hgb (11.4-16.0) gm/dL Hct (34.0-46.0) % MCV (80.0-100.0) fL MCH (25.0-35.0) pg MCHC (31.0-37.0) g/dL RDW (11.5-15.5) % Plt Count (150-450) k/uL Neutrophils % % Lymphocytes % % Monocytes % % Eosinophils % % Basophils % % Neutrophils # (1.3-7.7) k/uL Lymphocytes # (1.0-4.8) k/uL Monocytes # (0-1.0) k/uL Eosinophils # (0-0.7) k/uL Basophils # (0-0.2) k/uL PT (9.0-12.0) sec INR (<1.2) APTT (22.0-30.0) sec Sodium (137-145) mmol/L Potassium (3.5-5.1) mmol/L Chloride (98-107) mmol/L Carbon Dioxide (22-30) mmol/L Anion Gap mmol/L BUN (7-17) mg/dL Creatinine (0.52-1.04) mg/dL Est GFR (CKD-EPI)AfAm (>60 ml/min/1.73 sqM) Est GFR (CKD-EPI)NonAf (>60 ml/min/1.73 sqM) Glucose (74-99) mg/dL Lactic Ac Sepsis Rflx Y Plasma Lactic Acid [place] (0.7-2.0) mmol/L Calcium (8.4-10.2) mg/dL Total Bilirubin (0.2-1.3) mg/dL AST (14-36) U/L ALT (9-52) U/L Alkaline Phosphatase (38-126) U/L Total Protein (6.3-8.2) g/dL Albumin (3.5-5.0) g/dL Amylase (30-110) U/L Lipase (23-300) U/L Urine Color Urine Appearance (Clear) Urine pH (5.0-8.0) Ur Specific [place] (1.001-1.035) Urine Protein (Negative) Urine Glucose (UA) (Negative) Urine Ketones (Negative) Urine Blood (Negative) Urine Nitrite (Negative) Urine Bilirubin (Negative) Urine Urobilinogen (<2.0) mg/dL Ur Leukocyte Esterase (Negative) Blood Type Blood Type Recheck Antibody Screen Spec Expiration Date - Radiology Data Interstitial basilar pulmonary infiltrates which could relate to pulmonary fibrosis. This is increased compared to old computed tomography scan. No evidence of acute abdomen and pelvis. Normal appendix. I do not see a cause for right lower quadrant pain. (Lisseth Joiner) Disposition Is patient prescribed a controlled substance at d/c from ED?: No If prescribed controlled substance>3 days was MAPS reviewed?: No When asked, does pt state using other controlled substances?: No Time of Disposition: 00:57 <Lisseth Joiner - Last Filed: 10/28/17 12:16> <Johnathan Lr - Last Filed: 10/31/17 14:40> Clinical Impression: RLQ abdominal pain, Fever, Elevated lactic acid level, Pulmonary infiltrate Disposition: ADMITTED IP TO THIS HOSP Condition: Good
[2017-10-27 21:21] LABS: Basophils % (A) 0 %; Eosinophils # (A) 0.4 k/uL (0-0.7); Eosinophils % (A) 3 %; HCT 39.6 % (34.0-46.0); HGB 12.8 gm/dL (11.4-16.0); Lymphocytes # (A) 2.5 k/uL (1.0-4.8); Lymphocytes % (A) 21 %; MCH 28.8 pg (25.0-35.0); MCHC 32.4 g/dL (31.0-37.0); MCV 88.9 fL (80.0-100.0); Mean Platelet Volume 7.6; Monocytes # (A) 0.6 k/uL (0-1.0); Monocytes % (A) 5 %; Neutrophils # (A) 8.4 k/uL (1.3-7.7); Neutrophils % (A) 70 %; Platelet Count 328 k/uL (150-450); RBC 4.46 m/uL (3.80-5.40); RDW 13.4 % (11.5-15.5)
[2017-10-27 21:22] LABS: Appearance,Urine Clear (Clear); Bilirubin,Urine Negative (Negative); Blood,Urine Negative (Negative); Color,Urine Yellow; Glucose,Urine (UA) Trace (Negative); Ketones,Urine Negative (Negative); Leukocyte Esterase,Urine Negative (Negative); Nitrite,Urine Negative (Negative); PH, Urine 6.5 (5.0-8.0); Protein,Urine Trace (Negative); Specific Gravity,Urine 1.023 (1.001-1.035)
[2017-10-27 21:30] LABS: Partial Thromboplastin Time 23.3 sec (22.0-30.0); Prothrombin Time 10.2 sec (9.0-12.0)
[2017-10-27 21:37] LABS: ALT 26 U/L (9-52); AST 21 U/L (14-36); Albumin 4.1 g/dL (3.5-5.0); Alkaline Phosphatase 88 U/L (38-126); Anion Gap 14 mmol/L; Blood Urea Nitrogen 16 mg/dL (7-17); Calcium 9.6 mg/dL (8.4-10.2); Carbon Dioxide 26 mmol/L (22-30); Chloride 97 mmol/L (98-107); Glucose 189 mg/dL (74-99); Lipase 103 U/L (23-300); Potassium 4.3 mmol/L (3.5-5.1); Sodium 137 mmol/L (137-145); Total Bilirubin 0.3 mg/dL (0.2-1.3); Total Protein 7.6 g/dL (6.3-8.2)
[2017-10-27 21:49] LABS: Amylase 57 U/L (30-110)
[2017-10-27] MEDS ORDERED: SODIUM CHLORIDE 0.9% 1,000 ML IV ONE (22:02)
--- NOTE | 2017-10-27 23:09 | CT ---
EXAMINATION TYPE: CT abdomen pelvis w con DATE OF EXAM: 10/27/2017 COMPARISON: NONE HISTORY: Right lower quadrant pain x [address] DLP: 1685 mGycm Automated exposure control for dose reduction was used. TECHNIQUE: Helical acquisition of images was performed from the lung bases through the pelvis. CONTRAST: Performed without Oral Contrast and with IV Contrast, patient injected with 100 mL of Isovue 300. FINDINGS: There is coarsening of interstitial subcutaneous pleural lung parenchyma at the lung bases. There is no pulmonary consolidation. There is no pleural effusion. There are catheters from bariatric surgery. Liver appears normal. Spleen appears normal. Bile ducts are not dilated. Gallbladder appears normal. There is no pancreatic mass. There is a 2 cm calcification adjacent to the celiac artery that could be calcified celiac lymph node. There is no adrenal mass. Kidneys show satisfactory contrast opacification. There is no hydronephrosi s. There is no retroperitoneal adenopathy. There is no ascites. Appendix appears normal. I see no int estinal wall thickening. There are no dilated loops. There is no evidence of a hernia. I see no bony destructive process. There is posterior fusion surgery at L4 5I L5-S1. There is a 1st to 2nd degree L 5-S1 spondylolisthesis. IMPRESSION: INTERSTITIAL BASILAR PULMONARY INFILTRATES COULD RELATE TO PULMONARY FIBROSIS. THIS APPEARS INCREASED COMPARED TO OLD CT SCAN. NO EVIDENCE OF ACUTE ABDOMEN AND PELVIS. NORMAL APPENDIX. I DO NOT SEE A CA USE FOR RIGHT LOWER QUADRANT PAIN.
[2017-10-28] MEDS ORDERED: MORPHINE SULFATE 4 MG/ML SYRINGE IVP ONE (00:44)
[2017-10-28] MEDS ORDERED: ONDANSETRON 4 MG/2 ML VIAL IVP PRN (00:58)
[2017-10-28] MEDS ORDERED: MORPHINE SULFATE 4 MG/ML SYRINGE IV PRN (00:58)
[2017-10-28] MEDS ORDERED: IBUPROFEN 400 MG TAB PO PRN (00:58)
[2017-10-28] MEDS ORDERED: NALOXONE 0.4 MG/ML 1 ML VIAL IV PRN (00:58)
[2017-10-28] MEDS ORDERED: ACETAMINOPHEN TAB 325 MG TAB PO PRN (00:58)
[2017-10-28] MEDS: SODIUM CHLORIDE 0.9% 1,000 ML IV SCH ×3 (01:30→20:34)
[2017-10-28] MEDS ORDERED: diphenhydrAMINE 25 MG CAP PO STA (04:41)
[2017-10-28 05:19] VITALS: BMI 38.2
[2017-10-28] MEDS: KETOROLAC 30 MG/ML 1 ML VIAL IVP PRN ×2 (06:47→13:40)
[2017-10-28 07:34] LABS: Glucose,Whole Blood 130 mg/dL (75-99)
[2017-10-28 07:56] VITALS: RESP 16
[2017-10-28] MEDS: busPIRone HCl 5 MG TAB PO SCH ×2 (08:46→20:35)
[2017-10-28] MEDS: DULoxetine HCL 60 MG CAPSULE.DR PO SCH (08:46)
[2017-10-28] MEDS: FLUoxetine HCL 20 MG CAP PO SCH (08:46)
[2017-10-28] MEDS: PANTOPRAZOLE 40 MG/10 ML VIAL IV SCH (08:47)
[2017-10-28] MEDS: LEVOTHYROXINE 75 MCG TAB PO SCH (08:47)
[2017-10-28] MEDS: GABAPENTIN 300 MG CAP PO SCH ×2 (08:47→20:34)
[2017-10-28] MEDS: CYANOCOBALAMIN 500 MCG TAB PO SCH (08:50)
[2017-10-28] MEDS: LIRAGLUTIDE 1.8 MG SQ SCH (08:50)
[2017-10-28] MEDS: Linaclotide [Linzess] 72 MCG PO SCH (08:50)
[2017-10-28] MEDS: ASCORBIC ACID 500 MG TAB PO SCH (08:50)
[2017-10-28] MEDS: PIOGLITAZONE 45 MG TAB PO SCH (08:50)
[2017-10-28] MEDS: VITAMIN E (DL,TOCOPHERYL ACET) 400 UNIT CAP PO SCH (08:51)
--- NOTE | 2017-10-28 10:21 | P.GSCN ---
History of Present Illness Consult date: 10/28/17 Reason for Consult: Right lower quadrant abdominal pain History of present illness: Patient known to our service. Started having pain in the right lower quadrant approximately 24 hours ago. Some anorexia. No nausea or vomiting. Normal bowel habits. Denies rectal bleeding. was found have fevers in the ER. White blood cell count is normal. CAT scan shows a right ovarian cyst but no definite etiology for her pain. The appendix appeared normal. Lactic acid was elevated but returned to normal. Morning labs pending. She is a history of a previous hysterectomy. Review of Systems The patient denies any acute changes in vision or hearing, no dysphagia or odynophagia, no chest pain or shortness of breath, no dysuria or hematuria, no headache, no runny nose, no rectal bleeding or melena, no unexplained weight loss Past Medical History Past Medical History: Asthma, Diabetes Mellitus, Fibromyalgia, Pulmonary Embolus (PE), Sleep Apnea/CPAP/BIPAP, Thyroid Disorder Additional Past Medical History / Comment(s): CECILIA maintained on CPAP pressure of 10 cm of water, morbid obesity. HX PE AFTER HYSTERECTOMY 2013 History of Any Multi-Drug Resistant Organisms: None Reported Past Surgical History: Back Surgery, Bariatric Surgery, Section, Hysterectomy, Tubal Ligation Additional Past Surgical History / Comment(s): LAP BAND 2007, THYROIDECTOMY, Repair of left ureter Past Anesthesia/Blood Transfusion Reactions: No Reported Reaction Past Psychological History: Anxiety, Depression Smoking Status: Former smoker Past Alcohol Use History: Occasional Past Drug Use History: None Reported - Past Family History Mother Family Medical History: No Reported History Medications and Allergies Home Medications Medication Instructions Recorded Confirmed Type metFORMIN HCL 1,000 mg PO TID 03/09/14 10/27/17 History FLUoxetine HCL [PROzac] 40 mg PO DAILY 05/14/16 10/27/17 History Multivit-Min36/Iron/Folic Acid 1 tab PO HS 12/22/16 10/27/17 History [Geritol Complete Tablet] DULoxetine HCL [Cymbalta] 60 mg PO DAILY 05/10/17 10/27/17 History INSULIN LISPRO (humaLOG) [humaLOG] See Protocol SQ AC-TID 05/10/17 10/27/17 History Liraglutide [Victoza 2-Soham] 1.8 mg SQ DAILY 05/10/17 10/27/17 History Montelukast [Singulair] 10 mg PO HS 05/10/17 10/27/17 History tiZANidine [Zanaflex] 4 mg PO HS 05/10/17 10/27/17 History Ascorbic Acid [Vitamin C] 1,000 mg PO DAILY 10/27/17 10/27/17 History Cyanocobalamin (Vitamin B-12) 1,000 mcg PO DAILY 10/27/17 10/27/17 History [Vitamin B-12] Fluconazole [Diflucan] 100 mg PO DAILY 10/27/17 10/27/17 History Gabapentin [Neurontin] 300 mg PO BID 10/27/17 10/27/17 History Levothyroxine Sodium [Synthroid] 150 mcg PO DAILY 10/27/17 10/27/17 History Linaclotide [Linzess] 72 mcg PO DAILY 10/27/17 10/27/17 History Pioglitazone [Actos] 45 mg PO DAILY 10/27/17 10/27/17 History Vitamin D3(Unknown Dose) 1 tab PO DAILY 10/27/17 10/27/17 History Vitamin E 180mg 180 mg PO DAILY 10/27/17 10/27/17 History busPIRone HCL 15 mg PO BID 10/27/17 10/27/17 History Allergies Allergy/AdvReac Type Severity Reaction Status Date / Time No Known Allergies Allergy Verified 10/27/17 21:26 Surgical - Exam Vital Signs Temp Pulse Resp BP Pulse Ox 101.1 F H 102 H 18 112/67 99 10/27/17 20:31 10/27/17 20:31 10/27/17 20:31 10/27/17 20:31 10/27/17 20:31 Physical exam: General: Well-developed, well-nourished HEENT: Normocephalic, sclerae nonicteric Abdomen: Midline incision noted, right lower quadrant tenderness, nondistended Extremities: No edema Neuro: Alert and oriented Results - Labs 10/27/17 20:59 10/27/17 20:59 Abnormal Lab Results - Last 24 Hours (Table) 10/27/17 10/27/17 10/27/17 Range/Units 20:52 20:59 20:59 WBC 12.0 H (3.8-10.6) k/uL Neutrophils # 8.4 H (1.3-7.7) k/uL Chloride 97 L (98-107) mmol/L Glucose 189 H (74-99) mg/dL POC Glucose (mg/dL) (75-99) mg/dL Plasma Lactic Acid [place] (0.7-2.0) mmol/L Urine Protein Trace H (Negative) Urine Glucose (UA) Trace H (Negative) 10/27/17 10/28/17 Range/Units 20:59 07:05 WBC (3.8-10.6) k/uL Neutrophils # (1.3-7.7) k/uL Chloride (98-107) mmol/L Glucose (74-99) mg/dL POC Glucose (mg/dL) 130 H (75-99) mg/dL Plasma Lactic Acid [place] 2.1 H* (0.7-2.0) mmol/L Urine Protein (Negative) Urine Glucose (UA) (Negative) Microbiology - Last 24 Hours (Table) 10/27/17 20:52 Urine Culture - Preliminary Urine,Voided Diabetes panel 10/27/17 Range/Units 20:59 Sodium 137 (137-145) mmol/L Potassium 4.3 (3.5-5.1) mmol/L Chloride 97 L (98-107) mmol/L Carbon Dioxide 26 (22-30) mmol/L BUN 16 (7-17) mg/dL Creatinine 0.61 (0.52-1.04) mg/dL Glucose 189 H (74-99) mg/dL Calcium 9.6 (8.4-10.2) mg/dL AST 21 (14-36) U/L ALT 26 (9-52) U/L Alkaline Phosphatase 88 (38-126) U/L Total Protein 7.6 (6.3-8.2) g/dL Albumin 4.1 (3.5-5.0) g/dL Calcium panel 10/27/17 Range/Units 20:59 Calcium 9.6 (8.4-10.2) mg/dL Albumin 4.1 (3.5-5.0) g/dL Pituitary panel 10/27/17 Range/Units 20:59 Sodium 137 (137-145) mmol/L Potassium 4.3 (3.5-5.1) mmol/L Chloride 97 L (98-107) mmol/L Carbon Dioxide 26 (22-30) mmol/L BUN 16 (7-17) mg/dL Creatinine 0.61 (0.52-1.04) mg/dL Glucose 189 H (74-99) mg/dL Calcium 9.6 (8.4-10.2) mg/dL Adrenal panel 10/27/17 Range/Units 20:59 Sodium 137 (137-145) mmol/L Potassium 4.3 (3.5-5.1) mmol/L Chloride 97 L (98-107) mmol/L Carbon Dioxide 26 (22-30) mmol/L BUN 16 (7-17) mg/dL Creatinine 0.61 (0.52-1.04) mg/dL Glucose 189 H (74-99) mg/dL Calcium 9.6 (8.4-10.2) mg/dL Total Bilirubin 0.3 (0.2-1.3) mg/dL AST 21 (14-36) U/L ALT 26 (9-52) U/L Alkaline Phosphatase 88 (38-126) U/L Total Protein 7.6 (6.3-8.2) g/dL Albumin 4.1 (3.5-5.0) g/dL Assessment and Plan (1) RLQ abdominal pain Narrative/Plan: CAT scan reviewed. No evidence of appendicitis. Suspect either right ovarian cyst or mesenteric adenitis as the etiology for her pain. Continue advancing diet as tolerated. Will follow. Current Visit: Yes Status: Acute Code(s): R10.31 - RIGHT LOWER QUADRANT PAIN SNOMED Code(s): 504918920
[2017-10-28 10:27] LABS: Basophils % (A) 0 %; Eosinophils # (A) 0.3 k/uL (0-0.7); Eosinophils % (A) 4 %; HCT 34.1 % (34.0-46.0); HGB 10.9 gm/dL (11.4-16.0); Lymphocytes # (A) 1.9 k/uL (1.0-4.8); Lymphocytes % (A) 23 %; MCH 28.5 pg (25.0-35.0); MCV 89.1 fL (80.0-100.0); Mean Platelet Volume 7.2; Monocytes # (A) 0.4 k/uL (0-1.0); Monocytes % (A) 5 %; Neutrophils # (A) 5.4 k/uL (1.3-7.7); Neutrophils % (A) 65 %; Platelet Count 266 k/uL (150-450); RBC 3.83 m/uL (3.80-5.40); RDW 13.2 % (11.5-15.5); WBC 8.2 k/uL (3.8-10.6)
[2017-10-28 11:04] LABS: Glucose,Whole Blood 111 mg/dL (75-99)
[2017-10-28] MEDS: MULTIVITAMINS, THERA 1 EACH TAB PO SCH (12:05)
[2017-10-28] MEDS: CHOLECALCIFEROL 1,000 UNIT TAB PO SCH (12:05)
[2017-10-28] MEDS ORDERED: diphenhydrAMINE 25 MG CAP PO PRN (13:17)
--- NOTE | 2017-10-28 14:52 | P.CONS ---
History of Present Illness - Reason for Consult Consult date: 10/28/17 Chronic fever - History of Present Illness This is a 47-year-old female gives history of developing a low- grade fever in September 2007. She was treated for pneumonia at that time but she states she is continued to have low-grade fevers. She was treated for pneumonia again in 2009, 2011 and 2013. She states her average temperature is 99.1. She also complains of intermittent diarrhea. She has had extensive workup in the past including a PET scan and bone scan which were negative. In 2015 she had a CAT scan of the abdomen and pelvis done here that showed simple appearing ovarian cyst, moderate fecal stasis and mild jejunal ileus. She was also sent to Dr. Judge and had upper and lower scope done. Colonoscopy was clean and follow-up was to be in 10 years. Patient is now experiencing 2 days worth of right lower quadrant abdominal pain that is progressively worsening with fever. Patient presented to the clinic in [facility] [place]. No leukocytosis. She did have a temperature of 101.1. Her lactic acid was 2.1. Patient was given 2 L of IV fluids. CAT scan of the abdomen and pelvis with contrast revealed interstitial basilar pulmonary infiltrates could relate to pulmonary fibrosis. This is increased compared to old CT. No acute abdomen and pelvis. Normal appendix. No cause for right lower quadrant pain. Patient was seen in consultation by Dr. Judge. No evidence appendicitis. Suspect either right ovarian cyst or mesenteric adenitis as etiology of her pain. Patient continues to have significant tenderness to the right lower quadrant but also right upper quadrant and epigastric areas. Dr. Judge has advised to advance diet as tolerated. Temperature max today has been 100.2 this afternoon. Repeat lab work shows a normal white count. Repeat lactic acid 0.7. C-reactive protein was 12.1. Urinalysis was clear with nitrate and leukoesterase negative there was trace protein and glucose. Urine culture is in progress. Other studies that are pending are HIDA scan, MARK, CEA 125, celiac disease panel, sed rate and Lyme testing. Patient has not been started on antibiotics. She denies any improvement of her abdominal pain. Review of Systems All systems: negative Constitutional: Reports fatigue, Reports fever, Reports poor appetite, Denies anorexia, Denies chills Eyes: denies blurred vision, denies pain Ears, nose, mouth and throat: Denies dysphagia, Denies headache, Denies sore throat Cardiovascular: Denies chest pain, Denies decreased exercise tolerance, Denies dyspnea on exertion, Denies leg edema, Denies lightheadedness, Denies shortness of breath, Denies syncope Respiratory: Denies cough, Denies cough with sputum, Denies dyspnea, Denies excessive sputum, Denies hemoptysis, Denies home oxygen, Denies wheezing Gastrointestinal: Reports abdominal pain, Reports bloating, Reports diarrhea, Reports loss of appetite, Denies melena, Denies nausea, Denies vomiting Genitourinary: Denies dysuria, Denies hematuria Musculoskeletal: Denies myalgias Integumentary: Denies pruritus, Denies rash Neurological: Denies numbness, Denies weakness Psychiatric: Denies anxiety, Denies depression Endocrine: Denies fatigue, Denies weight change Past Medical History Past Medical History: Asthma, Diabetes Mellitus, Fibromyalgia, Pulmonary Embolus (PE), Sleep Apnea/CPAP/BIPAP, Thyroid Disorder Additional Past Medical History / Comment(s): OSAmaintained on CPAP pressure of 10 cm of water, morbid obesity. HX PE AFTER HYSTERECTOMY 2013 History of Any Multi-Drug Resistant Organisms: None Reported Past Surgical History: Back Surgery, Bariatric Surgery, Section, Hysterectomy, Tubal Ligation Additional Past Surgical History / Comment(s): Lumbar fusion and revision, LAP BAND 2007, THYROIDECTOMY for goiter, Repair of left ureter injury after robotic -assisted hysterectomy in 2013 Past Anesthesia/Blood Transfusion Reactions: No Reported Reaction Past Psychological History: Anxiety, Depression Smoking Status: Never smoker Past Alcohol Use History: Occasional Additional Past Alcohol Use History / Comment(s): Patient is a lifelong nonsmoker. She denies any marijuana or street drug use. She drinks alcohol occasionally. Her 18-year-old son lives with her. She works for [employer]. There are no pets in the home. She denies any recent travel. She has camped in the past but not recently. Past Drug Use History: None Reported - Past Family History Mother Family Medical History: No Reported History Additional Family Medical History / Comment(s): Mother is alive at age 66 with history of diabetes, hypertension, hyperlipidemia. Father Additional Family Medical History / Comment(s): Father is alive at age 66 with history of diabetes, hypertension, hyperlipidemia, 2 myocardial infarctions and a stroke. Brother(s) Additional Family Medical History / Comment(s): Patient has 4 brothers and 1 sister with no major medical problems. Patient has 2 sons with no major medical problems. Medications and Allergies Home Medications Medication Instructions Recorded Confirmed Type metFORMIN HCL 1,000 mg PO TID 03/09/14 10/27/17 History FLUoxetine HCL [PROzac] 40 mg PO DAILY 05/14/16 10/27/17 History Multivit-Min36/Iron/Folic Acid 1 tab PO HS 12/22/16 10/27/17 History [Geritol Complete Tablet] DULoxetine HCL [Cymbalta] 60 mg PO DAILY 05/10/17 10/27/17 History INSULIN LISPRO (humaLOG) [humaLOG] See Protocol SQ AC-TID 05/10/17 10/27/17 History Liraglutide [Victoza 2-Soham] 1.8 mg SQ DAILY 05/10/17 10/27/17 History Montelukast [Singulair] 10 mg PO HS 05/10/17 10/27/17 History tiZANidine [Zanaflex] 4 mg PO HS 05/10/17 10/27/17 History Ascorbic Acid [Vitamin C] 1,000 mg PO DAILY 10/27/17 10/27/17 History Cyanocobalamin (Vitamin B-12) 1,000 mcg PO DAILY 10/27/17 10/27/17 History [Vitamin B-12] Fluconazole [Diflucan] 100 mg PO DAILY 10/27/17 10/27/17 History Gabapentin [Neurontin] 300 mg PO BID 10/27/17 10/27/17 History Levothyroxine Sodium [Synthroid] 150 mcg PO DAILY 10/27/17 10/27/17 History Linaclotide [Linzess] 72 mcg PO DAILY 10/27/17 10/27/17 History Pioglitazone [Actos] 45 mg PO DAILY 10/27/17 10/27/17 History Vitamin D3(Unknown Dose) 1 tab PO DAILY 10/27/17 10/27/17 History Vitamin E 180mg 180 mg PO DAILY 10/27/17 10/27/17 History busPIRone HCL 15 mg PO BID 10/27/17 10/27/17 History Allergies Allergy/AdvReac Type Severity Reaction Status Date / Time No Known Allergies Allergy Verified 10/27/17 21:26 Physical Exam Vitals: Vital Signs Temp Pulse Pulse Resp BP BP Pulse Ox 10/28/17 14:22 80 16 10/28/17 08:00 80 16 10/28/17 07:04 98.0 F 80 16 111/62 98 10/28/17 02:07 97.3 F L 92 20 125/70 98 10/28/17 01:32 98.1 F 89 16 135/81 100 10/28/17 00:59 90 16 127/70 99 10/28/17 00:15 98.9 F 93 18 119/72 99 10/27/17 22:00 99.1 F 94 18 135/72 98 10/27/17 20:31 101.1 F H 102 H 18 112/67 99 Intake and Output 10/27/17 10/28/17 10/28/17 22:59 06:59 14:59 Intake Total 720 160 Balance 720 160 Intake: Intake, IV Titration 600 Amount Sodium Chloride 0.9% 1, 600 000 ml @ 120 mls/hr IV . Q8H20M [facility] Rx#:[id number] Oral 120 160 Other: # Voids 4 Weight 104.326 kg 104.326 kg Gen: This is a morbidly obese 47-year-old -[place] female. She is sitting up at the edge of the bed appears to be comfortable and in no acute distress. HEENT: Head is atraumatic, normocephalic. Pupils equal, round. Sclerae is anicteric. Conjunctiva pink. Because memories of the mouth are moist. NECK: Supple. No JVD. No lymphadenopathy. No thyromegaly. LUNGS: Clear to auscultation. No wheezes or rhonchi. No intercostal retractions. HEART: Regular rate and rhythm. No murmur. ABDOMEN: Soft. Bowel sounds are present. No masses. Extreme tenderness to the right lower quadrant and also tenderness to the right upper quadrant and epigastric areas. EXTREMITIES: No pedal edema. No calf tenderness. NEUROLOGICAL: Patient is awake, alert and oriented x3. Cranial nerves 2 through 12 are grossly intact. Results Results: Laboratory Results WBC 8.2 k/uL (3.8-10.6) 10/28/17 08:06 RBC 3.83 m/uL (3.80-5.40) 10/28/17 08:06 Hgb 10.9 gm/dL (11.4-16.0) L 10/28/17 08:06 Hct 34.1 % (34.0-46.0) 10/28/17 08:06 MCV 89.1 fL (80.0-100.0) 10/28/17 08:06 MCH 28.5 pg (25.0-35.0) 10/28/17 08:06 MCHC 32.0 g/dL (31.0-37.0) 10/28/17 08:06 RDW 13.2 % (11.5-15.5) 10/28/17 08:06 Plt Count 266 k/uL (150-450) 10/28/17 08:06 Neutrophils % 65 % 10/28/17 08:06 Lymphocytes % 23 % 10/28/17 08:06 Monocytes % 5 % 10/28/17 08:06 Eosinophils % 4 % 10/28/17 08:06 Basophils % 0 % 10/28/17 08:06 Neutrophils # 5.4 k/uL (1.3-7.7) 10/28/17 08:06 Lymphocytes # 1.9 k/uL (1.0-4.8) 10/28/17 08:06 Monocytes # 0.4 k/uL (0-1.0) 10/28/17 08:06 Eosinophils # 0.3 k/uL (0-0.7) 10/28/17 08:06 Basophils # 0.0 k/uL (0-0.2) 10/28/17 08:06 PT 10.2 sec (9.0-12.0) 10/27/17 20:59 INR 1.0 (<1.2) 10/27/17 20:59 APTT 23.3 sec (22.0-30.0) 10/27/17 20:59 Sodium 137 mmol/L (137-145) 10/27/17 20:59 Potassium 4.3 mmol/L (3.5-5.1) 10/27/17 20:59 Chloride 97 mmol/L (98-107) L 10/27/17 20:59 Carbon Dioxide 26 mmol/L (22-30) 10/27/17 20:59 Anion Gap 14 mmol/L 10/27/17 20:59 BUN 16 mg/dL (7-17) 10/27/17 20:59 Creatinine 0.61 mg/dL (0.52-1.04) 10/27/17 20:59 Est GFR (CKD-EPI)AfAm >90 (>60 ml/min/1.73 sqM) 10/27/17 20:59 Est GFR (CKD-EPI)NonAf >90 (>60 ml/min/1.73 sqM) 10/27/17 20:59 Glucose 189 mg/dL (74-99) H 10/27/17 20:59 POC Glucose (mg/dL) 111 mg/dL (75-99) H 10/28/17 11:02 POC Glu [employer] ID Lynn Carter 10/28/17 11:02 Lactic Ac Sepsis Rflx Y 10/27/17 21:56 Plasma Lactic Acid [place] 0.7 mmol/L (0.7-2.0) 10/28/17 01:40 Calcium 9.6 mg/dL (8.4-10.2) 10/27/17 20:59 Total Bilirubin 0.3 mg/dL (0.2-1.3) 10/27/17 20:59 AST 21 U/L (14-36) 10/27/17 20:59 ALT 26 U/L (9-52) 10/27/17 20:59 Alkaline Phosphatase 88 U/L (38-126) 10/27/17 20:59 C-Reactive Protein 12.1 mg/L (<10.0) H 10/28/17 08:06 Total Protein 7.6 g/dL (6.3-8.2) 10/27/17 20:59 Albumin 4.1 g/dL (3.5-5.0) 10/27/17 20:59 Amylase 57 U/L (30-110) 10/27/17 20:59 Lipase 103 U/L (23-300) 10/27/17 20:59 Urine Color Yellow 10/27/17 20:52 Urine Appearance Clear (Clear) 10/27/17 20:52 Urine pH 6.5 (5.0-8.0) 10/27/17 20:52 Ur Specific [place] 1.023 (1.001-1.035) 10/27/17 20:52 Urine Protein Trace (Negative) H 10/27/17 20:52 Urine Glucose (UA) Trace (Negative) H 10/27/17 20:52 Urine Ketones Negative (Negative) 10/27/17 20:52 Urine Blood Negative (Negative) 10/27/17 20:52 Urine Nitrite Negative (Negative) 10/27/17 20:52 Urine Bilirubin Negative (Negative) 10/27/17 20:52 Urine Urobilinogen 2.0 mg/dL (<2.0) 10/27/17 20:52 Ur Leukocyte Esterase Negative (Negative) 10/27/17 20:52 Blood Type O Positive 10/27/17 20:59 Blood Type Recheck No 10/27/17 20:59 Antibody Screen NEGATIVE 10/27/17 20:59 Spec Expiration Date 10/30/2017 12810/27/17 20:59 CBC & Chem 7: 10/28/17 08:06 10/27/17 20:59 Labs: Abnormal Lab Results - Last 24 Hours (Table) 10/27/17 10/27/17 10/27/17 Range/Units 20:52 20:59 20:59 WBC 12.0 H (3.8-10.6) k/uL Hgb (11.4-16.0) gm/dL Neutrophils # 8.4 H (1.3-7.7) k/uL Chloride 97 L (98-107) mmol/L Glucose 189 H (74-99) mg/dL POC Glucose (mg/dL) (75-99) mg/dL Plasma Lactic Acid [place] (0.7-2.0) mmol/L C-Reactive Protein (<10.0) mg/L Urine Protein Trace H (Negative) Urine Glucose (UA) Trace H (Negative) 10/27/17 10/28/17 10/28/17 Range/Units 20:59 07:05 08:06 WBC (3.8-10.6) k/uL Hgb 10.9 L (11.4-16.0) gm/dL Neutrophils # (1.3-7.7) k/uL Chloride (98-107) mmol/L Glucose (74-99) mg/dL POC Glucose (mg/dL) 130 H (75-99) mg/dL Plasma Lactic Acid [place] 2.1 H* (0.7-2.0) mmol/L C-Reactive Protein (<10.0) mg/L Urine Protein (Negative) Urine Glucose (UA) (Negative) 10/28/17 10/28/17 Range/Units 08:06 11:02 WBC (3.8-10.6) k/uL Hgb (11.4-16.0) gm/dL Neutrophils # (1.3-7.7) k/uL Chloride (98-107) mmol/L Glucose (74-99) mg/dL POC Glucose (mg/dL) 111 H (75-99) mg/dL Plasma Lactic Acid [place] (0.7-2.0) mmol/L C-Reactive Protein 12.1 H (<10.0) mg/L Urine Protein (Negative) Urine Glucose (UA) (Negative) Microbiology - Last 24 Hours (Table) 10/27/17 20:52 Urine Culture - Preliminary Urine,Voided Assessment and Plan Plan: This is a 47-year-old female patient who presented to the hospital with right lower quadrant pain as well as fever of 101.1. Patient gives history of having a low-grade fever for 10 years of unclear etiology. She does have workup in place including for autoimmune disorders No antibiotics in place at this time. Continue supportive care. Further recommendations as patient progresses. The above dictated assessment and findings were discussed with Dr. Epps. The impression and plan of care have been directed as dictated. Patricia Rosas nurse practitioner acting as scribe for Dr. Epps.
[2017-10-28 16:55] LABS: Glucose,Whole Blood 142 mg/dL (75-99)
--- NOTE | 2017-10-28 19:05 | P.HPIM ---
History of Present Illness H&P Date: 10/28/17 Chief Complaint: Right lower quadrant pain, fever This is a 47-year-old pleasant lady one of my clinic patient's, She has underlying history diabetes mellitus type 2, obstructive sleep apnea, previous pulmonary emboli in the past. IBS with bowel alterations, lumbar disc disease revisiting, asthma, sleep apnea on CPAP device, previous lumbar disc disease with fusion in 2007 recurrent fevers since 2007 2 years after lumbar disc fusion. She has had recurrent fevers of unknown a temperature of 101 the most, we have not found any explanation of the fever for the past 10 years, we have found a positive MARK, however she does not have any other arthropathy, no other sick contacts, we've done SPECT-CT to evaluate for lumbar spine infections which was negative this was done in 2016, she also had colonoscopy done by Dr. Ortiz and EGD, however no biopsies were done on the large colon to evaluate for colitis. She had pneumonia between 199903/23/2014, all of which has resolved She presents to the emergency room with abdominal pain of 2 days duration, this was not accompanied by nausea vomiting however she does have intermittent diarrhea which she blames IBS for it. Is taking was negative in the past, we' ll going to repeat test in the hospital. She had a CAT scan of the abdomen and pelvis that shows interstitial basilar pulmonary infiltrates that is related to pulmonary fibrosis, this has been increased since previous examination no evidence of acute abdomen and pelvis, normal appendix, no intestinal wall thickening nor ascites, and bile duct not dilated gallbladder appears normal no pancreatic mass 2 cm calcifications could be calcified celiac lymph node patient was seen by Dr. Judge general surgery who performed her last colonoscopy a year ago. He would be observed, consult made with Dr. Epps secondary to recurrent fevers, unknown etiology, could be colitis related , evaluate for other etiologies. Patient denies any cough no headache no neck pain no rashes. She does have itching related to the recent morphine use, which is relieved by Benadryl Review of Systems Constitutional: Reports as per HPI, Reports fever, Denies anorexia, Denies chills, Denies chronic headaches, Denies chronic pain, Denies daytime sleepiness , Denies fatigue, Denies lethargy, Denies malaise, Denies night sweats, Denies poor appetite, Denies sweats, Denies weakness, Denies weight gain, Denies weight loss Ears, nose, mouth and throat: Reports as per HPI, Denies ant. neck pain, Denies bleeding gums, Denies dental pain, Denies dysphagia, Denies epistaxis, Denies headache, Denies hoarseness, Denies mouth pain, Denies nasal congestion, Denies nasal discharge, Denies neck fullness/pressure, Denies neck lump, Denies nose pain, Denies odynophagia, Denies post-nasal drip, Denies sinus pain, Denies sinus pressure, Denies swelling in mouth, Denies swelling in throat, Denies sore throat, Denies vertigo, Denies voice changes Cardiovascular: Reports as per HPI, Denies chest pain, Denies claudication, Denies decreased exercise tolerance, Denies dyspnea on exertion, Denies edema, Denies high blood pressure, Denies irregular heart beat, Denies leg edema, Denies lightheadedness, Denies orthopnea, Denies palpitations, Denies paroxysmal nocturnal dyspnea, Denies phlebitis, Denies rapid heart beat, Denies shortness of breath, Denies syncope Respiratory: Reports as per HPI, Denies congestion, Denies cough, Denies cough with sputum, Denies dyspnea, Denies excessive sputum, Denies hemoptysis, Denies home oxygen, Denies pain, Denies pain on inspiration, Denies pleurisy, Denies respiratory infections, Denies sleep apnea, Denies snoring, Denies wheezing Gastrointestinal: Reports as per HPI, Reports abdominal pain (Right lower quadrant and right upper quadrant and epigastric), Denies belching, Denies bloating, Denies BRBPR, Denies change in bowel habits, Denies coffee ground emesis, Denies constipation, Denies diarrhea, Denies dyspepsia, Denies early satiety, Denies excessive gas, Denies heartburn, Denies hematemesis, Denies hematochezia, Denies indigestion, Denies jaundice, Denies lactose intolerance, Denies loss of appetite, Denies melena, Denies nausea, Denies vomiting Genitourinary: Reports as per HPI, Denies abnormal vaginal bleeding, Denies decreased libido, Denies difficulty conceiving, Denies difficulty voiding, Denies dysmenorrhea, Denies dyspareunia, Denies dysuria, Denies flank pain, Denies genital sores, Denies hematuria, Denies hot flashes, Denies incomplete emptying, Denies kidney stones, Denies menorrhagia, Denies mixed incontinence, Denies nocturia, Denies pelvic pain, Denies post void dribbling, Denies , Denies prolapse symptoms, Denies stress incontinence, Denies urge incontinence , Denies urgency, Denies urinary frequency, Denies vaginal discharge, Denies vaginal dryness, Denies vaginal itching, Denies vaginal odor Menstruation: Reports as per HPI, Denies amenorrhea, Denies amenorrhea on BC, Denies currently menstrual, Denies cycle < 21 days, Denies cycle > 35 days, Denies cycle variable, Denies menses 1-7 days, Denies menses 8 or > days, Denies menses variable, Denies period heavy, Denies period light, Denies period normal, Denies period spotting, Denies post hysterectomy, Denies postmenopausal , Denies premenarcheal Musculoskeletal: Reports as per HPI, Denies arm numbness/tingling, Denies atrophy, Denies fractures, Denies frequent falls, Denies gait dysfunction, Denies hot joints, Denies leg numbness/tingling, Denies limitation of motion, Denies loss of height, Denies low back pain, Denies morning stiffness, Denies muscle cramps, Denies muscle weakness, Denies myalgias, Denies neck pain, Denies neck stiffness, Denies prior amputations, Denies redness of joints, Denies shooting arm pain, Denies shooting leg pain Integumentary: Reports as per HPI, Reports pruritus Neurological: Reports as per HPI, Denies aphasia, Denies ataxia, Denies balance difficulties, Denies burning pain, Denies change in mentation, Denies change in smell/taste, Denies change in speech, Denies confusion, Denies convulsions, Denies double vision, Denies gait dysfunction, Denies head injury, Denies headaches, Denies hearing difficulties, Denies lack of coordination, Denies loss of vision, Denies memory loss, Denies migraines, Denies motor disturbance, Denies numbness, Denies paralysis, Denies paresthesias, Denies seizures, Denies sensory deficit, Denies spasticity, Denies syncope, Denies tic, Denies tingling , Denies transient paralysis, Denies tremors, Denies vertigo, Denies weakness, Denies visual changes Psychiatric: Reports as per HPI, Denies anhedonia, Denies anxiety, Denies anxiety attacks, Denies change in appetite, Denies change in libido, Denies change in sleep habits, Denies confusion, Denies depression, Denies difficulty concentrating, Denies disorientation, Denies hallucinations, Denies hopelessness , Denies hypersomnia, Denies insomnia, Denies irritability, Denies memory loss, Denies mood swings, Denies paranoia, Denies sadness/tearfulness, Denies sleep disturbances, Denies suicidal ideation Endocrine: Reports as per HPI, Denies cold intolerance, Denies deepening of the voice, Denies excessive sweating, Denies excessive thirst, Denies fatigue, Denies flushing, Denies heat intolerance, Denies high blood sugars, Denies increase in ring/shoe/hat size, Denies low blood sugars, Denies nocturia, Denies palpitations, Denies polydipsia, Denies polyphagia, Denies polyuria, Denies proptosis, Denies recent glucocorticoid use, Denies thyroid mass, Denies weight change Past Medical History Past Medical History: Asthma, Diabetes Mellitus, Fibromyalgia, Pulmonary Embolus (PE), Sleep Apnea/CPAP/BIPAP, Thyroid Disorder Additional Past Medical History / Comment(s): CECILIA maintained on CPAP pressure of 10 cm of water, morbid obesity. HX PE AFTER HYSTERECTOMY 2013 History of Any Multi-Drug Resistant Organisms: None Reported Past Surgical History: Back Surgery, Bariatric Surgery, Section, Hysterectomy, Tubal Ligation Additional Past Surgical History / Comment(s): LAP BAND 2008, THYROIDECTOMY, Repair of left ureter Past Anesthesia/Blood Transfusion Reactions: No Reported Reaction Past Psychological History: Anxiety, Depression Smoking Status: Former smoker Past Alcohol Use History: Occasional Past Drug Use History: None Reported - Past Family History Mother Family Medical History: No Reported History Father Additional Family Medical History / Comment(s): Father is alive at age 66 with history of diabetes, hypertension, hyperlipidemia, 2 myocardial infarctions and a stroke. Brother(s) Additional Family Medical History / Comment(s): Patient has 4 brothers and 1 sister with no major medical problems. Patient has 2 sons with no major medical problems. Medications and Allergies Home Medications Medication Instructions Recorded Confirmed Type metFORMIN HCL 1,000 mg PO TID 03/09/14 10/27/17 History FLUoxetine HCL [PROzac] 40 mg PO DAILY 05/14/16 10/27/17 History Multivit-Min36/Iron/Folic Acid 1 tab PO HS 12/22/16 10/27/17 History [Geritol Complete Tablet] DULoxetine HCL [Cymbalta] 60 mg PO DAILY 05/10/17 10/27/17 History INSULIN LISPRO (humaLOG) [humaLOG] See Protocol SQ AC-TID 05/10/17 10/27/17 History Liraglutide [Victoza 2-Soham] 1.8 mg SQ DAILY 05/10/17 10/27/17 History Montelukast [Singulair] 10 mg PO HS 05/10/17 10/27/17 History tiZANidine [Zanaflex] 4 mg PO HS 05/10/17 10/27/17 History Ascorbic Acid [Vitamin C] 1,000 mg PO DAILY 10/27/17 10/27/17 History Cyanocobalamin (Vitamin B-12) 1,000 mcg PO DAILY 10/27/17 10/27/17 History [Vitamin B-12] Fluconazole [Diflucan] 100 mg PO DAILY 10/27/17 10/27/17 History Gabapentin [Neurontin] 300 mg PO BID 10/27/17 10/27/17 History Levothyroxine Sodium [Synthroid] 150 mcg PO DAILY 10/27/17 10/27/17 History Linaclotide [Linzess] 72 mcg PO DAILY 10/27/17 10/27/17 History Pioglitazone [Actos] 45 mg PO DAILY 10/27/17 10/27/17 History Vitamin D3(Unknown Dose) 1 tab PO DAILY 10/27/17 10/27/17 History Vitamin E 180mg 180 mg PO DAILY 10/27/17 10/27/17 History busPIRone HCL 15 mg PO BID 10/27/17 10/27/17 History Amoxicillin/Potassium Clav 1 each PO Q12HR #14 tab 10/30/17 Rx [Augmentin 875-125 Tablet] HYDROcodone/APAP 7.5-325MG [[place] 1 tab PO Q6HR PRN 3 Days #12 tab 10/30/17 Rx 7.5-325] Allergies Allergy/AdvReac Type Severity Reaction Status Date / Time No Known Allergies Allergy Verified 10/27/17 21:26 Physical Exam Vitals: Vital Signs Temp Pulse Pulse Resp BP BP Pulse Ox 10/28/17 08:00 80 16 10/28/17 07:04 98.0 F 80 16 111/62 98 10/28/17 02:07 97.3 F L 92 20 125/70 98 10/28/17 01:32 98.1 F 89 16 135/81 100 10/28/17 00:59 90 16 127/70 99 10/28/17 00:15 98.9 F 93 18 119/72 99 10/27/17 22:00 99.1 F 94 18 135/72 98 10/27/17 20:31 101.1 F H 102 H 18 112/67 99 Intake and Output 10/27/17 10/28/17 10/28/17 22:59 06:59 14:59 Intake Total 720 Balance 720 Intake: Intake, IV Titration 600 Amount Sodium Chloride 0.9% 1, 600 000 ml @ 120 mls/hr IV . Q8H20M [facility] Rx#:[id number] Oral 120 Other: Weight 104.326 kg 104.326 kg - Constitutional General appearance: cooperative, no acute distress, obese - EENT Eyes: anicteric sclerae, EOMI, PERRLA, dentition normal ENT: NA/AT, normal oropharynx - Neck Neck: normal ROM - Respiratory Respiratory: bilateral: CTA, negative: diminished, dullness, rales - Cardiovascular Rhythm: regular Heart sounds: normal: S1, S2 Abnormal Heart Sounds: no systolic murmur, no diastolic murmur, no rub, no S3 Gallop, no S4 Gallop, no click, no other - Gastrointestinal General gastrointestinal: normal bowel sounds, soft - Integumentary Integumentary: decreased turgor, normal - Neurologic Neurologic: CNII-XII intact - Musculoskeletal Musculoskeletal: gait normal, strength equal bilaterally - Psychiatric Psychiatric: A&O x's 3, appropriate affect, intact judgment & insight Results CBC & Chem 7: 10/29/17 06:51 10/29/17 06:51 Labs: Abnormal Lab Results - Last 24 Hours (Table) 10/27/17 10/27/17 10/27/17 Range/Units 20:52 20:59 20:59 WBC 12.0 H (3.8-10.6) k/uL Hgb (11.4-16.0) gm/dL Neutrophils # 8.4 H (1.3-7.7) k/uL Chloride 97 L (98-107) mmol/L Glucose 189 H (74-99) mg/dL POC Glucose (mg/dL) (75-99) mg/dL Plasma Lactic Acid [place] (0.7-2.0) mmol/L Urine Protein Trace H (Negative) Urine Glucose (UA) Trace H (Negative) 10/27/17 10/28/17 10/28/17 Range/Units 20:59 07:05 08:06 WBC (3.8-10.6) k/uL Hgb 10.9 L (11.4-16.0) gm/dL Neutrophils # (1.3-7.7) k/uL Chloride (98-107) mmol/L Glucose (74-99) mg/dL POC Glucose (mg/dL) 130 H (75-99) mg/dL Plasma Lactic Acid [place] 2.1 H* (0.7-2.0) mmol/L Urine Protein (Negative) Urine Glucose (UA) (Negative) 10/28/17 Range/Units 11:02 WBC (3.8-10.6) k/uL Hgb (11.4-16.0) gm/dL Neutrophils # (1.3-7.7) k/uL Chloride (98-107) mmol/L Glucose (74-99) mg/dL POC Glucose (mg/dL) 111 H (75-99) mg/dL Plasma Lactic Acid [place] (0.7-2.0) mmol/L Urine Protein (Negative) Urine Glucose (UA) (Negative) Microbiology - Last 24 Hours (Table) 10/27/17 20:52 Urine Culture - Preliminary Urine,Voided Laboratory Results WBC 8.2 k/uL (3.8-10.6) 10/28/17 08:06 RBC 3.83 m/uL (3.80-5.40) 10/28/17 08:06 Hgb 10.9 gm/dL (11.4-16.0) L 10/28/17 08:06 Hct 34.1 % (34.0-46.0) 10/28/17 08:06 MCV 89.1 fL (80.0-100.0) 10/28/17 08:06 MCH 28.5 pg (25.0-35.0) 10/28/17 08:06 MCHC 32.0 g/dL (31.0-37.0) 10/28/17 08:06 RDW 13.2 % (11.5-15.5) 10/28/17 08:06 Plt Count 266 k/uL (150-450) 10/28/17 08:06 Neutrophils % 65 % 10/28/17 08:06 Lymphocytes % 23 % 10/28/17 08:06 Monocytes % 5 % 10/28/17 08:06 Eosinophils % 4 % 10/28/17 08:06 Basophils % 0 % 10/28/17 08:06 Neutrophils # 5.4 k/uL (1.3-7.7) 10/28/17 08:06 Lymphocytes # 1.9 k/uL (1.0-4.8) 10/28/17 08:06 Monocytes # 0.4 k/uL (0-1.0) 10/28/17 08:06 Eosinophils # 0.3 k/uL (0-0.7) 10/28/17 08:06 Basophils # 0.0 k/uL (0-0.2) 10/28/17 08:06 ESR 17 mm/hr (0-20) 10/28/17 08:06 PT 10.2 sec (9.0-12.0) 10/27/17 20:59 INR 1.0 (<1.2) 10/27/17 20:59 APTT 23.3 sec (22.0-30.0) 10/27/17 20:59 Sodium 137 mmol/L (137-145) 10/27/17 20:59 Potassium 4.3 mmol/L (3.5-5.1) 10/27/17 20:59 Chloride 97 mmol/L (98-107) L 10/27/17 20:59 Carbon Dioxide 26 mmol/L (22-30) 10/27/17 20:59 Anion Gap 14 mmol/L 10/27/17 20:59 BUN 16 mg/dL (7-17) 10/27/17 20:59 Creatinine 0.61 mg/dL (0.52-1.04) 10/27/17 20:59 Est GFR (CKD-EPI)AfAm >90 (>60 ml/min/1.73 sqM) 10/27/17 20:59 Est GFR (CKD-EPI)NonAf >90 (>60 ml/min/1.73 sqM) 10/27/17 20:59 Glucose 189 mg/dL (74-99) H 10/27/17 20:59 POC Glucose (mg/dL) 142 mg/dL (75-99) H 10/28/17 16:50 POC Glu Family Counselor ID Lynn Carter 10/28/17 16:50 Lactic Ac Sepsis Rflx Y 10/27/17 21:56 Plasma Lactic Acid [place] 0.7 mmol/L (0.7-2.0) 10/28/17 01:40 Calcium 9.6 mg/dL (8.4-10.2) 10/27/17 20:59 Total Bilirubin 0.3 mg/dL (0.2-1.3) 10/27/17 20:59 AST 21 U/L (14-36) 10/27/17 20:59 ALT 26 U/L (9-52) 10/27/17 20:59 Alkaline Phosphatase 88 U/L (38-126) 10/27/17 20:59 C-Reactive Protein 12.1 mg/L (<10.0) H 10/28/17 08:06 Total Protein 7.6 g/dL (6.3-8.2) 10/27/17 20:59 Albumin 4.1 g/dL (3.5-5.0) 10/27/17 20:59 Amylase 57 U/L (30-110) 10/27/17 20:59 Lipase 103 U/L (23-300) 10/27/17 20:59 Urine Color Yellow 10/27/17 20:52 Urine Appearance Clear (Clear) 10/27/17 20:52 Urine pH 6.5 (5.0-8.0) 10/27/17 20:52 Ur Specific [place] 1.023 (1.001-1.035) 10/27/17 20:52 Urine Protein Trace (Negative) H 10/27/17 20:52 Urine Glucose (UA) Trace (Negative) H 10/27/17 20:52 Urine Ketones Negative (Negative) 10/27/17 20:52 Urine Blood Negative (Negative) 10/27/17 20:52 Urine Nitrite Negative (Negative) 10/27/17 20:52 Urine Bilirubin Negative (Negative) 10/27/17 20:52 Urine Urobilinogen 2.0 mg/dL (<2.0) 10/27/17 20:52 Ur Leukocyte Esterase Negative (Negative) 10/27/17 20:52 Blood Type O Positive 10/27/17 20:59 Blood Type Recheck No 10/27/17 20:59 Antibody Screen NEGATIVE 10/27/17 20:59 Spec Expiration Date 10/30/2017 - 235810/27/17 20:59 Thrombosis Risk Factor Assmnt - DVT/VTE Prophylaxis DVT/VTE Prophylaxis: Pharmacologic Prophylaxis ordered - Choose All That Apply Any of the Below Risk Factors Present?: Yes Each Factor Represents 1 point: Age 41-60 years, Obesity (BMI >25) Each Risk Factor Represents 3 Points: History of DVT/PE Thrombosis Risk Factor Assessment Total Risk Factor Score: 5 Thrombosis Risk Factor Assessment Level: High Risk Assessment and Plan Plan: 1. Right lower quadrant abdominal pain and mid epigastric pain recurrent, recurrent diarrhea with known history of gastroparesis previous workup included colonoscopy without any biopsy within the past 1 year, also had EGD which was unremarkable, unknown selectivity panel. Patient has IBS based on workup, however patient most likely would need colonoscopy with biopsy to evaluate for microscopic colitis, patient currently is seen by general surgery, no surgical abdomen at this time. Patient refused to be seen locally by gastroenterology. Most likely would need outpatient colonoscopy with biopsy to evaluate evaluate collagenous or microscopic colitis stools for clostridium t O&P, cultures. 2. Fever of unknown origin for the past 10 years, unknown etiology at this time , patient would have CRP sed rate, MARK, Lyme test, o quantiferon gold test also to evaluate for underlying colitis with colonoscopy as outpatient consult with Dr. Epps, she had SPECT-CT nuclear med studies of the lumbar spine which was negative last year. 3. Diabetes mellitus type 2, , continue on Actos 45 mg daily Victoza 1.8 metformin has frequent follow-ups for routine visits as an outpatient with me 4. History of pulmonary emboli, no current symptoms, 5. Interstitial fibrosis noted on CT imaging, known history of asthma, just surveillance, continue Singulair, 6. 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
[2017-10-28 20:29] LABS: Glucose,Whole Blood 163 mg/dL (75-99)
[2017-10-28] MEDS: INSULIN ASPART 100 UNIT/ML 1 ML 10 ML VIAL SQ SCH (20:33)
[2017-10-28] MEDS: ENOXAPARIN 40 MG/0.4 ML SYRINGE SQ SCH (20:34)
[2017-10-28] MEDS: MONTELUKAST 10 MG TAB PO SCH (20:35)
[2017-10-28] MEDS: tiZANidine 4 MG TAB PO SCH (20:36)
[2017-10-28 21:12] LABS: Gliadin AB IgA, Unit 2.7 U/mL
--- NOTE | 2017-10-28 21:37 | P.CON ---
Consult Note - . Consult date: 10/28/17 Assessment/Plan:: This is a 47-year-old female gives history of developing a low- grade fever in September 2007. She was treated for pneumonia at that time but she states she is continued to have low-grade fevers. She was treated for pneumonia again in 2009, 2011 and 2013. She states her average temperature is 99.1. She also complains of intermittent diarrhea. She has had extensive workup in the past including a PET scan and bone scan which were negative. In 2015 she had a CAT scan of the abdomen and pelvis done here that showed simple appearing ovarian cyst, moderate fecal stasis and mild jejunal ileus. She was also sent to Dr. Judge and had upper and lower scope done. Colonoscopy was clean and follow-up was to be in 10 years. Patient is now experiencing 2 days worth of right lower quadrant abdominal pain that is progressively worsening with fever. Patient [place] [facility] [place] No leukocytosis. She did have a temperature of 101.1. Her lactic acid was 2.1. Patient was given 2 L of IV fluids. CAT scan of the abdomen and pelvis with contrast revealed interstitial basilar pulmonary infiltrates could relate to pulmonary fibrosis. This is increased compared to old CT. No acute abdomen and pelvis. Normal appendix. No cause for right lower quadrant pain. Patient was seen in consultation by Dr. Judge. No evidence appendicitis. Suspect either right ovarian cyst or mesenteric adenitis as etiology of her pain. Patient continues to have significant tenderness to the right lower quadrant but also right upper quadrant and epigastric areas. Dr. Judge has advised to advance diet as tolerated. Temperature max today has been 100.2 this afternoon. Repeat lab work shows a normal white count. Repeat lactic acid 0.7. C-reactive protein was 12.1. Urinalysis was clear with nitrate and leukoesterase negative there was trace protein and glucose. Urine culture is in progress. Other studies that are pending are HIDA scan, MARK, CEA 125, celiac disease panel, sed rate and Lyme testing. Patient has not been started on antibiotics. She denies any improvement of her abdominal pain. Please see the consult note is dictated by nurse practitioner Patricia Alison. 47-year-old woman who has superobesity is continuing to have significant discomfort in the right lower quadrant. Workup is in process including further scans, computed tomography scan other than some pulmonary fibrosis failed to reveal evidence of any significant intra-abdominal abscess. Patient has been having ongoing fever and ongoing symptoms and consequently cultures in process, antibiotic therapy with Unasyn will be initiated pending further data.
[2017-10-29] MEDS: AMPICILLIN-SULBACTAM 3 GM in SODIUM CHLORIDE 0.9% 100 ML IVPB SCH ×3 (00:15→12:48)
[2017-10-29 04:15] LABS: Hemoglobin A1C 8.4 % (4.0-6.0)
[2017-10-29] MEDS: SODIUM CHLORIDE 0.9% 1,000 ML IV SCH ×2 (05:27→09:37)
[2017-10-29] MEDS: KETOROLAC 30 MG/ML 1 ML VIAL IVP PRN ×3 (05:28→20:20)
[2017-10-29 07:09] LABS: Glucose,Whole Blood 120 mg/dL (75-99)
[2017-10-29 07:17] LABS: Basophils % (A) 0 %; Eosinophils # (A) 0.3 k/uL (0-0.7); Eosinophils % (A) 4 %; HCT 32.9 % (34.0-46.0); HGB 10.5 gm/dL (11.4-16.0); Lymphocytes # (A) 1.6 k/uL (1.0-4.8); Lymphocytes % (A) 21 %; MCH 28.3 pg (25.0-35.0); MCHC 31.8 g/dL (31.0-37.0); MCV 88.9 fL (80.0-100.0); Mean Platelet Volume 7.3; Monocytes # (A) 0.4 k/uL (0-1.0); Monocytes % (A) 5 %; Neutrophils # (A) 5.3 k/uL (1.3-7.7); Neutrophils % (A) 69 %; Platelet Count 255 k/uL (150-450); RDW 13.4 % (11.5-15.5); WBC 7.7 k/uL (3.8-10.6)
[2017-10-29] MEDS: INSULIN ASPART 100 UNIT/ML 1 ML 10 ML VIAL SQ SCH ×4 (07:17→20:19)
[2017-10-29 07:31] LABS: Anion Gap 10 mmol/L; Blood Urea Nitrogen 7 mg/dL (7-17); Calcium 8.4 mg/dL (8.4-10.2); Carbon Dioxide 24 mmol/L (22-30); Chloride 105 mmol/L (98-107); Glucose 113 mg/dL (74-99); Sodium 139 mmol/L (137-145)
[2017-10-29] MEDS: LEVOTHYROXINE 75 MCG TAB PO SCH (09:42)
[2017-10-29] MEDS: PANTOPRAZOLE 40 MG/10 ML VIAL IV SCH (09:42)
--- NOTE | 2017-10-29 10:20 | NM ---
Nuclear medicine hepatobiliary scan. HISTORY: Pain. DOSAGE: The patient received 2.1 micrograms of CCK and 5.3 mCi of Technetium 99m Choletec. FINDINGS: There is normal hepatic extraction. The gallbladder is seen by 25 minutes. There is bilia ry to bowel clearance by 40 minutes. Ejection fraction is 54%. IMPRESSION: 1. Normal hepatobiliary exam
[2017-10-29 11:07] LABS: Glucose,Whole Blood 137 mg/dL (75-99)
[2017-10-29] MEDS: VITAMIN E (DL,TOCOPHERYL ACET) 400 UNIT CAP PO SCH (12:50)
[2017-10-29] MEDS: MULTIVITAMINS, THERA 1 EACH TAB PO SCH (12:51)
[2017-10-29] MEDS: CYANOCOBALAMIN 500 MCG TAB PO SCH (12:51)
[2017-10-29] MEDS: CHOLECALCIFEROL 1,000 UNIT TAB PO SCH (12:51)
[2017-10-29] MEDS: ASCORBIC ACID 500 MG TAB PO SCH (12:51)
[2017-10-29] MEDS: LIRAGLUTIDE 1.8 MG SQ SCH (12:52)
[2017-10-29] MEDS: Linaclotide [Linzess] 72 MCG PO SCH (12:52)
[2017-10-29] MEDS: busPIRone HCl 5 MG TAB PO SCH ×2 (12:56→20:05)
[2017-10-29] MEDS: ENOXAPARIN 40 MG/0.4 ML SYRINGE SQ SCH (12:57)
[2017-10-29] MEDS: FLUoxetine HCL 20 MG CAP PO SCH (12:57)
[2017-10-29] MEDS: DULoxetine HCL 60 MG CAPSULE.DR PO SCH (12:57)
[2017-10-29] MEDS: GABAPENTIN 300 MG CAP PO SCH ×2 (12:57→20:06)
[2017-10-29] MEDS: PIOGLITAZONE 45 MG TAB PO SCH (12:58)
[2017-10-29] MEDS: BUDESONIDE 0.5 MG/2 ML NEBU INHALATION SCH ×2 (14:07→20:37)
--- NOTE | 2017-10-29 14:16 | P.PN ---
Subjective Progress Note Date: 10/29/17 Principal diagnosis: Abdominal pain Patient says her pain is slightly improved. T-max 99.8. White blood cell count normal. She had a HIDA scan that was normal. Today she says that when she is eating feels like the food may be sitting on her chest. She says there is no dysphagia. No vomiting. Mild nausea. She does not believe that her band is too tight. Objective - Vital Signs Vital signs: Vital Signs Temp 98.3 F 10/29/17 07:27 Pulse 85 10/29/17 07:27 Resp 16 10/29/17 07:27 BP 146/78 10/29/17 07:27 Pulse Ox 98 10/29/17 07:27 Intake & Output 10/28/17 10/29/17 10/29/17 18:59 06:59 18:59 Intake Total 160 1190 Balance 160 1190 Intake: Intake, IV Titration 940 Amount Ampicillin-Sulbactam 3 gm 100 In Sodium Chloride 0.9% 100 ml @ 100 mls/hr IVPB Q6HR [facility] Rx#:[id number] Sodium Chloride 0.9% 1, 840 000 ml @ 120 mls/hr IV . Q8H20M [facility] Rx#:[id number] Oral 160 250 Other: # Voids 4 2 - Exam Name: Soft, nondistended, right lower quadrant tenderness improved - Labs CBC & Chem 7: 10/29/17 06:51 10/29/17 06:51 Labs: Abnormal Lab Results - Last 24 Hours (Table) 10/28/17 10/28/17 10/28/17 Range/Units 08:06 08:06 16:50 RBC (3.80-5.40) m/uL Hgb (11.4-16.0) gm/dL Hct (34.0-46.0) % Glucose (74-99) mg/dL POC Glucose (mg/dL) 142 H (75-99) mg/dL Hemoglobin A1c 8.4 H (4.0-6.0) % C-Reactive Protein 12.1 H (<10.0) mg/L 10/28/17 10/29/17 10/29/17 Range/Units 20:27 06:51 06:51 RBC 3.70 L (3.80-5.40) m/uL Hgb 10.5 L (11.4-16.0) gm/dL Hct 32.9 L (34.0-46.0) % Glucose 113 H (74-99) mg/dL POC Glucose (mg/dL) 163 H (75-99) mg/dL Hemoglobin A1c (4.0-6.0) % C-Reactive Protein (<10.0) mg/L 10/29/17 10/29/17 Range/Units 07:07 11:03 RBC (3.80-5.40) m/uL Hgb (11.4-16.0) gm/dL Hct (34.0-46.0) % Glucose (74-99) mg/dL POC Glucose (mg/dL) 120 H 137 H (75-99) mg/dL Hemoglobin A1c (4.0-6.0) % C-Reactive Protein (<10.0) mg/L Microbiology - Last 24 Hours (Table) 10/27/17 20:59 Blood Culture - Preliminary Blood No Growth after 24 hours Assessment and Plan (1) RLQ abdominal pain Narrative/Plan: Will check esophagogram already ordered. Continue antibiotics per infectious disease. Current Visit: Yes Status: Acute Code(s): R10.31 - RIGHT LOWER QUADRANT PAIN SNOMED Code(s): 654026313
--- NOTE | 2017-10-29 14:54 | P.PN ---
Subjective Principal diagnosis: This is a 47-year-old pleasant lady one of my clinic patient's, She has underlying history diabetes mellitus type 2, obstructive sleep apnea, previous pulmonary emboli in the past. IBS with bowel alterations, lumbar disc disease revisiting, asthma, sleep apnea on CPAP device, previous lumbar disc disease with fusion in 2007 recurrent fevers since 2007 2 years after lumbar disc fusion. She has had recurrent fevers of unknown a temperature of 101 the most, we have not found any explanation of the fever for the past 10 years, we have found a positive MARK, however she does not have any other arthropathy, no other sick contacts, we've done SPECT-CT to evaluate for lumbar spine infections which was negative this was done in 2017, she also had colonoscopy done by Dr. Ortiz and EGD, however no biopsies were done on the large colon to evaluate for colitis. She had pneumonia between 199903/23/2014, all of which has resolved She presents to the emergency room with abdominal pain of 2 days duration, this was not accompanied by nausea vomiting however she does have intermittent diarrhea which she blames IBS for it. Is taking was negative in the past, we' ll going to repeat test in the hospital. She had a CAT scan of the abdomen and pelvis that shows interstitial basilar pulmonary infiltrates that is related to pulmonary fibrosis, this has been increased since previous examination no evidence of acute abdomen and pelvis, normal appendix, no intestinal wall thickening nor ascites, and bile duct not dilated gallbladder appears normal no pancreatic mass 2 cm calcifications could be calcified celiac lymph node patient was seen by Dr. Judge general surgery who performed her last colonoscopy a year ago. He would be observed, consult made with Dr. Epps secondary to recurrent fevers, unknown etiology, could be colitis related , evaluate for other etiologies. Patient denies any cough no headache no neck pain no rashes. She does have itching related to the recent morphine use, which is relieved by Benadryl 10/29: Dr. Epps has evaluated the patient with recommendations to continue current plan until cultures are resulted and started her on Unasyn with plan for seven-day course of Augmentin at discharge. Patient has been seen by Dr. Judge. Diet will be advanced. Patient is complaining that she can only take a couple bites of food feels like it gets stuck. She denies any difficulty swallowing. Esophagram ordered. HIDA scan was negative. DuoNeb treatments, Pulmicort and pulmonary consult ordered for possible pulmonary fibrosis. Objective - Vital Signs Vital signs: Vital Signs Temp 98.3 F 10/29/17 07:27 Pulse 85 10/29/17 07:27 Resp 16 10/29/17 07:27 BP 146/78 10/29/17 07:27 Pulse Ox 98 10/29/17 07:27 Intake & Output 10/28/17 10/29/17 10/29/17 18:59 06:59 18:59 Intake Total 160 1190 Balance 160 1190 Intake: Intake, IV Titration 940 Amount Ampicillin-Sulbactam 3 gm 100 In Sodium Chloride 0.9% 100 ml @ 100 mls/hr IVPB Q6HR [facility] Rx#:[id number] Sodium Chloride 0.9% 1, 840 000 ml @ 120 mls/hr IV . Q8H20M [facility] Rx#:[id number] Oral 160 250 Other: # Voids 4 2 - Exam General appearance: cooperative, no acute distress, obese - EENT Eyes: anicteric sclerae, EOMI, PERRLA, dentition normal ENT: NA/AT, normal oropharynx - Neck Neck: normal ROM - Respiratory Respiratory: bilateral: CTA, negative: diminished, dullness, rales - Cardiovascular Rhythm: regular Heart sounds: normal: S1, S2 Abnormal Heart Sounds: no systolic murmur, no diastolic murmur, no rub, no S3 Gallop, no S4 Gallop, no click, no other - Gastrointestinal General gastrointestinal: normal bowel sounds, soft - Integumentary Integumentary: decreased turgor, normal - Neurologic Neurologic: CNII-XII intact - Musculoskeletal Musculoskeletal: gait normal, strength equal bilaterally - Psychiatric Psychiatric: A&O x's 3, appropriate affect, intact judgment & insight - Labs CBC & Chem 7: 10/29/17 06:51 10/29/17 06:51 Labs: Abnormal Lab Results - Last 24 Hours (Table) 10/28/17 10/28/17 10/28/17 Range/Units 08:06 08:06 08:06 RBC (3.80-5.40) m/uL Hgb 10.9 L (11.4-16.0) gm/dL Hct (34.0-46.0) % Glucose (74-99) mg/dL POC Glucose (mg/dL) (75-99) mg/dL Hemoglobin A1c 8.4 H (4.0-6.0) % C-Reactive Protein 12.1 H (<10.0) mg/L 10/28/17 10/28/17 10/28/17 Range/Units 11:02 16:50 20:27 RBC (3.80-5.40) m/uL Hgb (11.4-16.0) gm/dL Hct (34.0-46.0) % Glucose (74-99) mg/dL POC Glucose (mg/dL) 111 H 142 H 163 H (75-99) mg/dL Hemoglobin A1c (4.0-6.0) % C-Reactive Protein (<10.0) mg/L 10/29/17 10/29/17 10/29/17 Range/Units 06:51 06:51 07:07 RBC 3.70 L (3.80-5.40) m/uL Hgb 10.5 L (11.4-16.0) gm/dL Hct 32.9 L (34.0-46.0) % Glucose 113 H (74-99) mg/dL POC Glucose (mg/dL) 120 H (75-99) mg/dL Hemoglobin A1c (4.0-6.0) % C-Reactive Protein (<10.0) mg/L Microbiology - Last 24 Hours (Table) 10/27/17 20:59 Blood Culture - Preliminary Blood No Growth after 24 hours 10/27/17 20:52 Urine Culture - Preliminary Urine,Voided Assessment and Plan Plan: 1. Right lower quadrant abdominal pain and mid epigastric pain recurrent, recurrent diarrhea with known history of gastroparesis previous workup included colonoscopy without any biopsy within the past 1 year, also had EGD which was unremarkable, unknown selectivity panel. Patient has IBS based on workup, however patient most likely would need colonoscopy with biopsy to evaluate for microscopic colitis, patient currently is seen by general surgery, no surgical abdomen at this time. Patient refused to be seen locally by gastroenterology. Most likely would need outpatient colonoscopy with biopsy to evaluate evaluate collagenous or microscopic colitis stools for clostridium, O&P, cultures. Esophagram ordered. Consult admitted for Dr. Head for pulmonary fibrosis. DuoNeb treatments and Pulmicort added. 2. Fever of unknown origin for the past 10 years, unknown etiology at this time , patient would have CRP sed rate, MARK, Lyme test, o quantiferon gold test also to evaluate for underlying colitis with colonoscopy as outpatient consult with Dr. Epps, she had SPECT-CT nuclear med studies of the lumbar spine which was negative last year. 3. Diabetes mellitus type 2, , continue on Actos 45 mg daily Victoza 1.8 metformin has frequent follow-ups for routine visits as an outpatient with me 4. History of pulmonary emboli, no current symptoms, 5. Interstitial fibrosis noted on CT imaging, known history of asthma, just surveillance, continue Singulair, 6. Postsurgical hypothyroidism with complete did thyroidectomy secondary to benign reasons for goiter, on levothyroxine 150 g daily 7. Fibromyalgia on Zanaflex 4 mg at bedtime Cymbalta 60 mg daily Prozac 40 mg daily 8. Chronic constipation , linzess 72 g daily 9. Vitamin D deficiency on maintenance B12 and vitamin D 10. Dysthymia with anxiety also on BuSpar 15 mg twice a day along with SSRI 11. DVT prophylaxis with Lovenox 12. GI prophylaxis with Protonix Discharge plan: Return home tomorrow Impression and plan of care have been directed as dictated by the signing physician. Patricia Rosas nurse practitioner acting as scribe for signing physician.
--- NOTE | 2017-10-29 16:02 | FL ---
EXAMINATION TYPE: FL UGI w esophagus DATE OF EXAM: 10/29/2017 COMPARISON: NONE HISTORY: Dysphasia TECHNIQUE: A single contrast UGI study is performed. Water-soluble contrast was utilized. FINDINGS: LAP-BAND is present in normal orientation. Catheter appears intact. Contrast passes through the esophagus to the LAP-BAND without hesitancy. No intraluminal or extramura l defects are evident. The LAP-BAND appears to allow passage of contrast without significant hesitanc y. Single contrast imaging is performed through the stomach. No filling defects are evident. Contrast ex tends into the first and second portions of the duodenum. IMPRESSIONS: 1. Esophagus and limited upper GI appears normal with LAP-BAND in position. No significant hesitancy passing beyond the LAP-BAND is evident.
[2017-10-29 17:06] LABS: Glucose,Whole Blood 250 mg/dL (75-99)
[2017-10-29] MEDS: AMOXIC-POT CLAV 875-125MG 1 EACH TAB PO SCH (20:05)
[2017-10-29] MEDS: MONTELUKAST 10 MG TAB PO SCH (20:06)
[2017-10-29] MEDS: tiZANidine 4 MG TAB PO SCH (20:06)
[2017-10-29 20:09] LABS: Glucose,Whole Blood 133 mg/dL (75-99)
[2017-10-29] MEDS: IPRATROPIUM-ALBUTEROL 3 ML NEB INHALATION PRN (20:37)
[2017-10-29] MEDS: metFORMIN 500 MG TAB PO SCH (21:37)
[2017-10-30] MEDS: KETOROLAC 30 MG/ML 1 ML VIAL IVP PRN ×2 (06:07→12:20)
[2017-10-30] MEDS: IPRATROPIUM-ALBUTEROL 3 ML NEB INHALATION PRN (06:52)
[2017-10-30] MEDS: BUDESONIDE 0.5 MG/2 ML NEBU INHALATION SCH (06:53)
[2017-10-30 07:00] LABS: Glucose,Whole Blood 134 mg/dL (75-99)
[2017-10-30 07:40] VITALS: BP 120/78; PULSE 84; TEMP 98.3
[2017-10-30] MEDS: INSULIN ASPART 100 UNIT/ML 1 ML 10 ML VIAL SQ SCH ×2 (08:54→12:30)
[2017-10-30] MEDS: PANTOPRAZOLE 40 MG/10 ML VIAL IV SCH (08:55)
[2017-10-30] MEDS: metFORMIN 500 MG TAB PO SCH (08:55)
[2017-10-30] MEDS: ENOXAPARIN 40 MG/0.4 ML SYRINGE SQ SCH (08:55)
[2017-10-30] MEDS: AMOXIC-POT CLAV 875-125MG 1 EACH TAB PO SCH (08:56)
[2017-10-30] MEDS: DULoxetine HCL 60 MG CAPSULE.DR PO SCH (08:56)
[2017-10-30] MEDS: CYANOCOBALAMIN 500 MCG TAB PO SCH (08:56)
[2017-10-30] MEDS: ASCORBIC ACID 500 MG TAB PO SCH (08:56)
[2017-10-30] MEDS: FLUoxetine HCL 20 MG CAP PO SCH (08:56)
[2017-10-30] MEDS: busPIRone HCl 5 MG TAB PO SCH (08:56)
[2017-10-30] MEDS: PIOGLITAZONE 45 MG TAB PO SCH (08:56)
[2017-10-30] MEDS: LEVOTHYROXINE 75 MCG TAB PO SCH (08:56)
[2017-10-30] MEDS: GABAPENTIN 300 MG CAP PO SCH (08:56)
[2017-10-30] MEDS: VITAMIN E (DL,TOCOPHERYL ACET) 400 UNIT CAP PO SCH (08:56)
[2017-10-30] MEDS: LIRAGLUTIDE 1.8 MG SQ SCH (08:57)
[2017-10-30] MEDS: Linaclotide [Linzess] 72 MCG PO SCH (08:57)
--- NOTE | 2017-10-30 09:27 | P.PN ---
Subjective Progress Note Date: 10/30/17 Principal diagnosis: Abdominal pain Patient still having some right-sided pain although improved. She is tolerating her diet. She states she is going home today. Esophagram showed no evidence of obstruction advance site. Objective - Vital Signs Vital signs: Vital Signs Temp 98.3 F 10/30/17 07:00 Pulse 88 10/30/17 07:17 Resp 16 10/30/17 07:00 BP 120/78 10/30/17 07:00 Pulse Ox 99 10/30/17 07:00 Intake & Output 10/29/17 10/30/17 10/30/17 18:59 06:59 18:59 Other: Voiding Method Toilet # Voids 3 1 # Bowel Movements 1 - Exam Abdomen: Soft, mild right-sided tenderness, no visible rash to suggest herpes zoster - Labs CBC & Chem 7: 10/29/17 06:51 10/29/17 06:51 Labs: Abnormal Lab Results - Last 24 Hours (Table) 10/29/17 10/29/17 10/29/17 Range/Units 11:03 17:05 20:07 POC Glucose (mg/dL) 137 H 250 H 133 H (75-99) mg/dL 10/30/17 Range/Units 06:48 POC Glucose (mg/dL) 134 H (75-99) mg/dL Microbiology - Last 24 Hours (Table) 10/27/17 20:59 Blood Culture - Preliminary Blood No Growth after 48 hours 10/27/17 20:52 Urine Culture - Final Urine,Voided Assessment and Plan (1) RLQ abdominal pain Narrative/Plan: Continue diet as tolerated. Agree with plans for discharge. If pain persists as an outpatient consider repeating CAT scan. Current Visit: Yes Status: Acute Code(s): R10.31 - RIGHT LOWER QUADRANT PAIN SNOMED Code(s): 426630046
[2017-10-30 10:52] LABS: Lyme IgG/IgM 0.4 Index
[2017-10-30 11:18] LABS: Glucose,Whole Blood 228 mg/dL (75-99)
--- NOTE | 2017-10-30 11:24 | P.CNPUL ---
History of Present Illness Consult date: 10/30/17 Requesting physician: Kelly Dent Reason for consult: abnormal CXR/CT, other Chief complaint: Right upper and lower quadrant pain, interstitial basilar infiltrates History of present illness: Mrs. Crawford was a 47-year-old -Italian female patient of Dr. Dent, who presented to the emergency department on 10/27/2017 at 2018 with complaints of 2 day history of right upper and lower quadrant abdominal pain, abdominal distention and sensation of food "laying in on her chest area" after eating regular food. Patient has diffuse tenderness on the right side of her abdomen, extending to her right lateral torso area. She denied any chills, however she was found to be febrile emergency room with a temp of 101.1F, and mild lactic acidosis with a lactic acid of 2.1. Patient denied any dysuria, denied any nausea or vomiting. Denied change in her bowel habits, denied any rectal bleeding. Does have a history of gastric banding in 2007, section, hysterectomy, repair of left ureter, asthma, sleep apnea on home CPAP therapy, obesity, diabetes mellitus type II, thyroidectomy. Patient is a lifetime nonsmoker. CT scan of abdomen and pelvis showed a right ovarian cyst but no definite etiology for her pain. HIDA scan was normal. Barium swallow showed esophagus and limited upper GI with LAP-BAND in position without any evidence of significant hesitancy passing beyond the LAP-BAND. Urinalysis was negative for any evidence of infection. Amylase and lipase were within normal limits, and CA-125 antigen was within normal limits at 15.4. Patient is on empiric antibiotics in the form of Augmentin. Patient had previously been evaluated in the pulmonary office with Dr. Head for her dyspnea on exertion and there was no evidence of any interstitial lung disease, no evidence of sarcoidosis in the lungs, or hypersensitivity pneumonitis or any other form of interstitial lung disease. At the time the Branden level was elevated, at 72, however nonspecific, and CT chest did not indicate any major pathology. Outpatient PFT indicated extrapulmonary restriction probably related to her increased body weight. The echocardiogram showed mild diastolic dysfunction, but the LV function was within normal limits, and the PA pressure was only mildly elevated. As such there was no indication for any lung biopsy for this patient and the plan was to continue following and repeating the Branden level marker. She was encouraged to lose weight. Patient reports history of recurrent pneumonias in the past. Patient was referred to Dr. Zarate in regards to a positive MARK, and investigation for possibility of lupus. After a complete connective tissue panel was done by Dr. Zarate and the subsequent negative MARK and negative serologies, no evidence of a primary rheumatological condition was found. Patient's asthma is inactive at this time, and she is not using any inhalers. Patient had a remote history of pulmonary embolism following hysterectomy, and she is off the anticoagulation at this time. We are asked to see the patient in consultation to increased interstitial basilar pulmonary infiltrates which appear to be increased from previous CT chest. But clinically patient denies any chest congestion, sputum production, hemoptysis, chest wall tenderness. She reports her shortness of breath is brought on by pain in her right abdomen, and usually after eating certain foods. She is calm and comfortable at rest, currently on room air, with O2 sat 99%, she is afebrile. Urine culture was negative, blood culture is pending. Today's labs show WBC is 7.7, hemoglobin is 10.5, electrolytes and renal profile within normal limits, patient is tolerating soft consistent carbohydrate diet. No vomiting, no nausea, patient to has a persistent right-sided abdominal pain. She is requesting to go home today, since no source of her right abdominal pain was found. Review of Systems All systems: negative Constitutional: Denies chills, Denies fever Eyes: denies blurred vision, denies pain Ears, nose, mouth and throat: Denies headache, Denies sore throat Cardiovascular: Denies chest pain, Denies shortness of breath Respiratory: Reports sleep apnea, Denies cough Gastrointestinal: Reports as per HPI, Reports bloating, Reports dyspepsia, Reports excessive gas, Reports indigestion, Denies abdominal pain, Denies diarrhea, Denies nausea, Denies vomiting Genitourinary: Denies dysuria, Denies hematuria Menstruation: Reports post hysterectomy Musculoskeletal: Denies myalgias Integumentary: Denies pruritus, Denies rash Neurological: Denies numbness, Denies weakness Psychiatric: Denies anxiety, Denies depression Endocrine: Denies fatigue, Denies weight change Past Medical History Past Medical History: Asthma, Diabetes Mellitus, Fibromyalgia, Pulmonary Embolus (PE), Sleep Apnea/CPAP/BIPAP, Thyroid Disorder Additional Past Medical History / Comment(s): OSAmaintained on CPAP pressure of 10 cm of water, morbid obesity. HX PE AFTER HYSTERECTOMY 2013 History of Any Multi-Drug Resistant Organisms: None Reported Past Surgical History: Back Surgery, Bariatric Surgery, Section, Hysterectomy, Tubal Ligation Additional Past Surgical History / Comment(s): Lumbar fusion and revision, LAP BAND 2007, THYROIDECTOMY for goiter, Repair of left ureter injury after robotic -assisted hysterectomy in 2013 Past Anesthesia/Blood Transfusion Reactions: No Reported Reaction Past Psychological History: Anxiety, Depression Smoking Status: Never smoker Past Alcohol Use History: Occasional Additional Past Alcohol Use History / Comment(s): Patient is a lifelong nonsmoker. She denies any marijuana or street drug use. She drinks alcohol occasionally. Her 18-year-old son lives with her. She works for [employer]. There are no pets in the home. She denies any recent travel. She has camped in the past but not recently. Past Drug Use History: None Reported - Past Family History Mother Family Medical History: No Reported History Additional Family Medical History / Comment(s): Mother is alive at age 66 with history of diabetes, hypertension, hyperlipidemia. Father Additional Family Medical History / Comment(s): Father is alive at age 66 with history of diabetes, hypertension, hyperlipidemia, 2 myocardial infarctions and a stroke. Brother(s) Additional Family Medical History / Comment(s): Patient has 4 brothers and 1 sister with no major medical problems. Patient has 2 sons with no major medical problems. Medications and Allergies Home Medications Medication Instructions Recorded Confirmed Type metFORMIN HCL 1,000 mg PO TID 03/09/14 10/27/17 History FLUoxetine HCL [PROzac] 40 mg PO DAILY 05/14/16 10/27/17 History Multivit-Min36/Iron/Folic Acid 1 tab PO HS 12/22/16 10/27/17 History [Geritol Complete Tablet] DULoxetine HCL [Cymbalta] 60 mg PO DAILY 05/10/17 10/27/17 History INSULIN LISPRO (humaLOG) [humaLOG] See Protocol SQ AC-TID 05/10/17 10/27/17 History Liraglutide [Victoza 2-Soham] 1.8 mg SQ DAILY 05/10/17 10/27/17 History Montelukast [Singulair] 10 mg PO HS 05/10/17 10/27/17 History tiZANidine [Zanaflex] 4 mg PO HS 05/10/17 10/27/17 History Ascorbic Acid [Vitamin C] 1,000 mg PO DAILY 10/27/17 10/27/17 History Cyanocobalamin (Vitamin B-12) 1,000 mcg PO DAILY 10/27/17 10/27/17 History [Vitamin B-12] Fluconazole [Diflucan] 100 mg PO DAILY 10/27/17 10/27/17 History Gabapentin [Neurontin] 300 mg PO BID 10/27/17 10/27/17 History Levothyroxine Sodium [Synthroid] 150 mcg PO DAILY 10/27/17 10/27/17 History Linaclotide [Linzess] 72 mcg PO DAILY 10/27/17 10/27/17 History Pioglitazone [Actos] 45 mg PO DAILY 10/27/17 10/27/17 History Vitamin D3(Unknown Dose) 1 tab PO DAILY 10/27/17 10/27/17 History Vitamin E 180mg 180 mg PO DAILY 10/27/17 10/27/17 History busPIRone HCL 15 mg PO BID 10/27/17 10/27/17 History Allergies Allergy/AdvReac Type Severity Reaction Status Date / Time No Known Allergies Allergy Verified 10/27/17 21:26 Physical Exam Vitals: Vital Signs Temp Pulse Pulse Resp BP Pulse Ox 10/30/17 07:17 88 10/30/17 07:00 98.3 F 84 16 120/78 99 10/30/17 06:53 90 16 10/29/17 22:55 80 16 10/29/17 21:51 98.4 F 80 16 120/64 98 10/29/17 20:54 82 10/29/17 20:38 82 10/29/17 14:53 98.6 F 82 16 122/67 97 Intake and Output 10/29/17 10/30/17 10/30/17 22:59 06:59 14:59 Other: Voiding Method Toilet # Voids 1 1 # Bowel Movements 1 - Constitutional Pleasant, 47 -year-old -Italian female, resting in bed, in no acute distress General appearance: average body habitus, cooperative, no acute distress - EENT Eyes: EOMI, PERRLA, dentition normal ENT: NA/AT Ears: bilateral: normal - Neck Neck: no lymphadenopathy, normal ROM Carotids: bilateral: upstroke normal Thyroid: bilateral: normal size - Respiratory Respiratory: bilateral: CTA - Cardiovascular Rhythm: regular Heart sounds: normal: S1, S2 - Gastrointestinal General gastrointestinal: no organomegaly, soft, no tenderness - Integumentary Integumentary: normal turgor - Neurologic Neurologic: CNII-XII intact - Musculoskeletal Musculoskeletal: gait normal, strength equal bilaterally - Psychiatric Psychiatric: A&O x's 3, appropriate affect, intact judgment & insight Results - Laboratory Findings CBC and BMP: 10/29/17 06:51 10/29/17 06:51 PT/INR, D-dimer PT 10.2 sec (9.0-12.0) 10/27/17 20:59 INR 1.0 (<1.2) 10/27/17 20:59 Abnormal lab findings: Abnormal Labs 10/27/17 10/27/17 10/27/17 20:52 20:59 20:59 WBC 12.0 H RBC Hgb Hct Neutrophils # 8.4 H Chloride 97 L Glucose 189 H POC Glucose (mg/dL) Hemoglobin A1c Plasma Lactic Acid [place] C-Reactive Protein Urine Protein Trace H Urine Glucose (UA) Trace H 10/27/17 10/28/17 10/28/17 20:59 07:05 08:06 WBC RBC Hgb 10.9 L Hct Neutrophils # Chloride Glucose POC Glucose (mg/dL) 130 H Hemoglobin A1c Plasma Lactic Acid [place] 2.1 H* C-Reactive Protein Urine Protein Urine Glucose (UA) 10/28/17 10/28/17 10/28/17 08:06 08:06 11:02 WBC RBC Hgb Hct Neutrophils # Chloride Glucose POC Glucose (mg/dL) 111 H Hemoglobin A1c 8.4 H Plasma Lactic Acid [place] C-Reactive Protein 12.1 H Urine Protein Urine Glucose (UA) 10/28/17 10/28/17 10/29/17 16:50 20:27 06:51 WBC RBC 3.70 L Hgb 10.5 L Hct 32.9 L Neutrophils # Chloride Glucose POC Glucose (mg/dL) 142 H 163 H Hemoglobin A1c Plasma Lactic Acid [place] C-Reactive Protein Urine Protein Urine Glucose (UA) 10/29/17 10/29/17 10/29/17 06:51 07:07 11:03 WBC RBC Hgb Hct Neutrophils # Chloride Glucose 113 H POC Glucose (mg/dL) 120 H 137 H Hemoglobin A1c Plasma Lactic Acid [place] C-Reactive Protein Urine Protein Urine Glucose (UA) 10/29/17 10/29/17 10/30/17 17:05 20:07 06:48 WBC RBC Hgb Hct Neutrophils # Chloride Glucose POC Glucose (mg/dL) 250 H 133 H 134 H Hemoglobin A1c Plasma Lactic Acid [place] C-Reactive Protein Urine Protein Urine Glucose (UA) - Diagnostic Findings Chest x-ray: report reviewed, image reviewed Additional studies: CT abdomen and pelvis reviewed Assessment and Plan Plan: Assessment: #1. Acute right abdominal pain, under investigation. Amylase and lipase were negative, CT of abdomen and pelvis showed right ovarian cyst, but no evidence of any other acute abnormality to explain the etiology of the pain. HIDA scan was within normal limits, barium swallow did not show any obstruction at the gastric band #2. Mild intermittent bronchial asthma, currently inactive, and patient is not on any maintenance inhalers at this time #3. Interstitial basilar infiltrates seen on the CT of abdomen and pelvis, and patient had pulmonary evaluation by Dr. Head during which no evidence of interstitial lung disease or any evidence of sarcoidosis of the lungs was found. Patient can be followed on an outpatient basis repeat Branden level. Patient also had evaluation by the occ therapist Dr. Zarate, in no evidence of any primary rheumatologic diagnosis was found #4. Morbid obesity, status post gastric banding in 2007, and patient reports intermittent issues with abdominal distention and and pain after eating certain foods #5. Right ovarian cyst seen on CT abdomen and pelvis #6. Diabetes mellitus type 2 #7. Obstructive sleep apnea, on home CPAP therapy #8. Lifetime nonsmoker #9. History of remote pulmonary embolism after hysterectomy. Patient is off anticoagulation at this time #10. History of mild diastolic dysfunction #11. Hysterectomy, and ureteral injury during the procedure with subsequent repair #12. Hypothyroidism Plan: Patient is currently not having any acute pulmonary issues, patient can be followed in the outpatient basis for the interstitial basilar infiltrates seen on the CT of abdomen and pelvis, a repeat CT chest will be done outpatient basis , and a follow-up Branden level will be done. Patient was previously ruled out for sarcoidosis of the lungs, or connective tissue disorder. Patient's asthma is inactive, she is compliant with her CPAP therapy. No acute dyspnea, no chest congestion, no hemoptysis or chest wall tenderness at this time to suggest pneumonia. We'll be happy to see her follow-up on outpatient basis I performed a history & physical examination of the patient and discussed their management with my nurse practitioner, Carleen Vieyra. I reviewed the nurse practitioner's note and agree with the documented findings and plan of care. Lung sounds are clear. The findings and the impression was discussed with the patient. I attest to the documentation by the nurse practitioner. Time with Patient: Greater than 30
[2017-10-30] MEDS: CHOLECALCIFEROL 1,000 UNIT TAB PO SCH (12:21)
[2017-10-30] MEDS: MULTIVITAMINS, THERA 1 EACH TAB PO SCH (12:21)
--- NOTE | 2017-10-30 14:40 | P.DS ---
Providers Date of admission: 10/28/17 00:37 Expected date of discharge: 10/30/17 Attending physician: Kelly Dent Consults: 10/28/17 00:58 Consult Physician Stat Consulting Provider: Edenilson Judge Consult Reason/Comments: RLQ pain, fever Do you want consulting provider notified?: Yes, Notify in am 10/28/17 13:17 Consult Physician Routine Consulting Provider: Jaguar Epps Consult Reason/Comments: fever chronic Do you want consulting provider notified?: Yes 10/29/17 12:56 Consult Physician Routine Consulting Provider: Jacqueline Head Consult Reason/Comments: pulm fibrosis, recurrent fevers Do you want consulting provider notified?: Yes Primary care physician: [facility] Course: This is a 47-year-old pleasant lady one of my clinic patient's, She has underlying history diabetes mellitus type 2, obstructive sleep apnea, previous pulmonary emboli in the past. IBS with bowel alterations, lumbar disc disease revisiting, asthma, sleep apnea on CPAP device, previous lumbar disc disease with fusion in 2007 recurrent fevers since 2007 2 years after lumbar disc fusion. She has had recurrent fevers of unknown a temperature of 101 the most, we have not found any explanation of the fever for the past 10 years, we have found a positive MARK, however she does not have any other arthropathy, no other sick contacts, we've done SPECT-CT to evaluate for lumbar spine infections which was negative this was done in 2017, she also had colonoscopy done by Dr. Ortiz and EGD, however no biopsies were done on the large colon to evaluate for colitis. She had pneumonia between 199903/23/2014, all of which has resolved She presents to the emergency room with abdominal pain of 2 days duration, this was not accompanied by nausea vomiting however she does have intermittent diarrhea which she blames IBS for it. Is taking was negative in the past, we' ll going to repeat test in the hospital. She had a CAT scan of the abdomen and pelvis that shows interstitial basilar pulmonary infiltrates that is related to pulmonary fibrosis, this has been increased since previous examination no evidence of acute abdomen and pelvis, normal appendix, no intestinal wall thickening nor ascites, and bile duct not dilated gallbladder appears normal no pancreatic mass 2 cm calcifications could be calcified celiac lymph node patient was seen by Dr. Judge general surgery who performed her last colonoscopy a year ago. He would be observed, consult made with Dr. Epps secondary to recurrent fevers, unknown etiology, could be colitis related , evaluate for other etiologies. Patient denies any cough no headache no neck pain no rashes. She does have itching related to the recent morphine use, which is relieved by Benadryl 10/29: Dr. Epps has evaluated the patient with recommendations to continue current plan until cultures are resulted and started her on Unasyn with plan for seven-day course of Augmentin at discharge. Patient has been seen by Dr. Judge. Diet will be advanced. Patient is complaining that she can only take a couple bites of food feels like it gets stuck. She denies any difficulty swallowing. Esophagram ordered. HIDA scan was negative. DuoNeb treatments, Pulmicort and pulmonary consult ordered for possible pulmonary fibrosis. 10/30: Esophagram and limited upper GI appears normal with LAP-BAND in position. No significant hesitancy passing beyond the LAP-BAND is evident. Dr. Judge has cleared her for discharge. He recommends that if pain persistsas an outpatient, consider repeat CAT scan. Patient will be discharged home today in stable condition. Discharge diagnoses: 1. Right lower quadrant abdominal pain and mid epigastric pain recurrent secondary to 2. Fever of unknown origin for the past 10 years, unknown etiology 3. Diabetes mellitus type 2 4. History of pulmonary emboli 5. Interstitial fibrosis noted on CT imaging, known history of mild intermittent asthma 6. Postsurgical hypothyroidism with complete did thyroidectomy secondary to benign reasons for goiter 7. Fibromyalgia 8. Chronic constipation 9. Vitamin D deficiency 10. Dysthymia with generalized anxiety disorder Discharge plan: Return home Impression and plan of care have been directed as dictated by the signing physician. Patricia Rosas nurse practitioner acting as scribe for signing physician. Patient Condition at Discharge: Good Plan - Discharge Summary New Discharge Prescriptions: New Amoxicillin/Potassium Clav [Augmentin 875-125 Tablet] 1 each PO Q12HR #14 tab HYDROcodone/APAP 7.5-325MG [Terril 7.5-325] 1 tab PO Q6HR PRN 3 Days #12 tab PRN Reason: Pain Scale 6 To 10 Continue metFORMIN HCL 1,000 mg PO TID FLUoxetine HCL [PROzac] 40 mg PO DAILY Multivit-Min36/Iron/Folic Acid [Geritol Complete Tablet] 1 tab PO HS INSULIN LISPRO (humaLOG) [humaLOG] See Protocol SQ AC-TID Liraglutide [Victoza 2-Soham] 1.8 mg SQ DAILY tiZANidine [Zanaflex] 4 mg PO HS Montelukast [Singulair] 10 mg PO HS DULoxetine HCL [Cymbalta] 60 mg PO DAILY Fluconazole [Diflucan] 100 mg PO DAILY Vitamin E 180mg 180 mg PO DAILY Vitamin D3(Unknown Dose) 1 tab PO DAILY Cyanocobalamin (Vitamin B-12) [Vitamin B-12] 1,000 mcg PO DAILY Ascorbic Acid [Vitamin C] 1,000 mg PO DAILY busPIRone HCL 15 mg PO BID Pioglitazone [Actos] 45 mg PO DAILY Linaclotide [Linzess] 72 mcg PO DAILY Gabapentin [Neurontin] 300 mg PO BID Levothyroxine Sodium [Synthroid] 150 mcg PO DAILY Discharge Medication List metFORMIN HCL 1,000 mg PO TID 03/09/14 [History] FLUoxetine HCL [PROzac] 40 mg PO DAILY 05/14/16 [History] Multivit-Min36/Iron/Folic Acid [Geritol Complete Tablet] 1 tab PO HS 12/22/16 [ History] DULoxetine HCL [Cymbalta] 60 mg PO DAILY 05/10/17 [History] INSULIN LISPRO (humaLOG) [humaLOG] See Protocol SQ AC-TID 05/10/17 [History] Liraglutide [Victoza 2-Soham] 1.8 mg SQ DAILY 05/10/17 [History] Montelukast [Singulair] 10 mg PO HS 05/10/17 [History] tiZANidine [Zanaflex] 4 mg PO HS 05/10/17 [History] Ascorbic Acid [Vitamin C] 1,000 mg PO DAILY 10/27/17 [History] Cyanocobalamin (Vitamin B-12) [Vitamin B-12] 1,000 mcg PO DAILY 10/27/17 [ History] Fluconazole [Diflucan] 100 mg PO DAILY 10/27/17 [History] Gabapentin [Neurontin] 300 mg PO BID 10/27/17 [History] Levothyroxine Sodium [Synthroid] 150 mcg PO DAILY 10/27/17 [History] Linaclotide [Linzess] 72 mcg PO DAILY 10/27/17 [History] Pioglitazone [Actos] 45 mg PO DAILY 10/27/17 [History] Vitamin D3(Unknown Dose) 1 tab PO DAILY 10/27/17 [History] Vitamin E 180mg 180 mg PO DAILY 10/27/17 [History] busPIRone HCL 15 mg PO BID 10/27/17 [History] Amoxicillin/Potassium Clav [Augmentin 875-125 Tablet] 1 each PO Q12HR #14 tab [Rx] HYDROcodone/APAP 7.5-325MG [Terril 7.5-325] 1 tab PO Q6HR PRN 3 Days #12 tab 05/09 [Rx] Follow up Appointment(s)/Referral(s): Kelly Dent MD [Primary Care Provider] - 11/06/17 11:00 am [facility] [NON-STAFF] - 12/01/17 1:30 pm Jacqueline Head MD [STAFF PHYSICIAN] - 1 Week (Please call office to schedule your appointment.) Patient Instructions/Handouts: Hydrocodone/Acetaminophen (By mouth), Amoxicillin/Clavulanate Potassium (By mouth), Fever in Adults (GEN), Acute Abdominal Pain (DC) Activity/Diet/Wound Care/Special Instructions: Diet full liquid and advance to soft. Discharge Disposition: HOME SELF-CARE
--- NOTE | 2017-11-03 11:17 | CDI ---
Outpatient Documentation Clarification Form Date: 11-04-17 CDS/Oven Stripper Name: Phone: If any questions, call Norah Rodriguez [employer] at [phone] Patient Name: EDITH PAULA Admit Date: 10-27-17 Discharge Date: 10-30-17 ATTENTION: The [facility] Coding Staff appreciate your assistance in clarifying documentation. Please respond to the clarification below the line at the bottom and electronically sign. The [facility] Coding staff will review the response and follow-up if needed. Please note: Queries are made part of the Legal Health Record. If you have any questions, please contact the [employer]. Dear Dr. HERRING, IF KNOWN, PLEASE SPECIFY BELOW THE LINE, THE CAUSE OF THE ABDOMINAL PAIN. PER DISCHARGE SUMMARY, LOOKS LIKE DICTATION LINE #1, IS NOT COMPLETED. ".....PAIN SECONDARY TO " IF CAUSE OF THE ABDOMINAL PAIN IS UNKNOWN, PLEASE ADD BELOW THE LINE, "CAUSE UNKNOWN". THANK YOU FOR YOUR TIME, MOUNIKA CRUZ abdominal pain secondary to suspected mesenteric adenitis, cannot rule out microscopic colitis MTDD
== END 2017-10-30 13:18 | disposition home or self-care (01) ==
LOC: EC 20:18 → 5MS5E 10-28 00:37
PROVIDERS: ADMIT Family Medicine; ATTEND Family Medicine
DX: R10.31 Right lower quadrant pain (principal); R10.13 Epigastric pain; R10.11 Right upper quadrant pain; R50.9 Fever, unspecified; Z86.711 Personal history of pulmonary embolism; J84.10 Pulmonary fibrosis, unspecified; J45.20 Mild intermittent asthma, uncomplicated; E89.0 Postprocedural hypothyroidism; M79.7 Fibromyalgia; K59.09 Other constipation; E55.9 Vitamin D deficiency, unspecified; F41.1 Generalized anxiety disorder; F34.1 Dysthymic disorder; G47.33 Obstructive sleep apnea (adult) (pediatric); Z99.89 Dependence on other enabling machines and devices; M51.36 Other intervertebral disc degeneration, lumbar region; Z98.1 Arthrodesis status; Z87.01 Personal history of pneumonia (recurrent); Z98.84 Bariatric surgery status; E66.01 Morbid (severe) obesity due to excess calories; Z68.38 Body mass index [BMI] 38.0-38.9, adult; Z87.891 Personal history of nicotine dependence; Z82.49 Family history of ischemic heart disease and other diseases of the circulatory system; Z82.3 Family history of stroke; Z79.84 Long term (current) use of oral hypoglycemic drugs; Z79.899 Other long term (current) drug therapy; Z79.4 Long term (current) use of insulin; Z79.890 Hormone replacement therapy; K58.0 Irritable bowel syndrome with diarrhea; Z86.718 Personal history of other venous thrombosis and embolism; E11.43 Type 2 diabetes mellitus with diabetic autonomic (poly)neuropathy; K31.84 Gastroparesis; R63.0 Anorexia; R14.0 Abdominal distension (gaseous); E87.2 Acidosis; N83.201 Unspecified ovarian cyst, right side; Z90.710 Acquired absence of both cervix and uterus; D72.829 Elevated white blood cell count, unspecified; L29.9 Pruritus, unspecified
CPT/HCPCS: 99285 ×2; 96361 ×9; 96375 ×4; 96376 ×5; 96365; 96366; 96372 ×3; 36415; 94640 ×2; 86900; 86901; 87338; 80053; 80048; 86304; 85652; 82150; 83605 ×2; 83690; 85025 ×3; 85610; 85730; 86850; 86140; 81003; 87040; 86618; 86038; 86480; 83516 ×4; 87086; 87329; 87328; 83036; 74240; 74177; 78227; G0378 ×3; A9537; J2270 ×2; J2405 ×2; J2805; J1650 ×3; J1885 ×3; J0295; C9113 ×3; Q9967

== ENCOUNTER → 2017-11-21 | Outpatient (CLI) | payer MEDICARE, OTHER ==
--- NOTE | 2017-11-21 15:03 | MR ---
PRE AND POSTCONTRAST ENHANCED MRI OF THE BRAIN: CLINICAL HISTORY: Memory loss CONTRAST: Gadavist 10ml. Multiplanar and multispin-echo imaging of the brain was performed both before and after the administr ation of contrast. The ventricles, basal cisterns and sulci overlying the cerebral convexities are within normal limits. There is no evidence for midline shift or mass effect. Acute intracranial hemorrhage or extra-axial collection is not evident. There are no abnormal areas of increased or decreased signal intensity within the brain parenchyma. Following contrast administration, there is no evidence for pathologic enhancement or enhancing mass. The paranasal sinuses and mastoid air cells are well-aerated. Small mucous retention cyst right maxil virgen sinus. IMPRESSION: Unremarkable pre and postcontrast enhanced MRI of the brain.
== END | disposition home or self-care (01) ==
LOC: RADMRIMAIN 07:53
PROVIDERS: ATTEND Family Medicine
DX: R41.3 Other amnesia (principal)
CPT/HCPCS: 70553; A9581

== ENCOUNTER 2018-07-13 16:08 | Inpatient (IN) | payer MEDICARE, OTHER ==
[2018-07-13] MEDS ORDERED: SODIUM CHLORIDE 0.9% 500 ML 500 ML IV STA (16:59)
--- NOTE | 2018-07-13 17:03 | ED ---
General Adult HPI - General Chief complaint: Shortness of Breath Stated complaint: ANNABELLE Time Seen by Provider: 07/13/18 16:38 Source: patient, RN notes reviewed Mode of arrival: ambulatory Limitations: no limitations - History of Present Illness Initial comments: 48-year-old female presents to the emergency department for a chief complaint of cough and shortness of breath. Patient states she has had a cough for the past 3 days. Patient states it worsened yesterday. Patient states she also has worsening shortness of breath. Patient states shortness breath is worse with exertion. Patient denies chest besides for minimal pain when coughing. Denies any pleuritic chest pain. Patient states she has had low-grade fevers less than 100 at home. Patient has also had some congestion with mild headache. Rates this pain at a 5 out of 10. Patient has no other complaints at this time including abdominal pain, nausea or vomiting, or visual changes. - Related Data Home Medications Medication Instructions Recorded Confirmed metFORMIN HCL 1,000 mg PO BID 03/09/14 07/13/18 FLUoxetine HCL [PROzac] 40 mg PO DAILY 05/14/16 07/13/18 Multivit-Min36/Iron/Folic Acid 1 tab PO DAILY 12/22/16 07/13/18 [Geritol Complete Tablet] INSULIN LISPRO (humaLOG) [humaLOG] See Protocol SQ AC-TID PRN 05/10/17 07/13/18 Liraglutide [Victoza 2-Soham] 1.8 mg SQ DAILY 05/10/17 07/13/18 Montelukast [Singulair] 10 mg PO HS 05/10/17 07/13/18 Gabapentin [Neurontin] 600 mg PO HS 10/27/17 07/13/18 Linaclotide [Linzess] 72 mcg PO DAILY 10/27/17 07/13/18 Pioglitazone [Actos] 45 mg PO DAILY 10/27/17 07/13/18 Vitamin E 180mg 180 mg PO DAILY 10/27/17 07/13/18 busPIRone HCL 15 mg PO BID 10/27/17 07/13/18 Cholecalciferol [Vitamin D3] 1,000 unit PO DAILY 07/13/18 07/13/18 Levothyroxine Sodium [Synthroid] 175 mcg PO DAILY 07/13/18 07/13/18 Previous Rx's Medication Instructions Recorded Azithromycin [Zithromax Z-pack] 250 mg PO DIRECTED #6 tab 07/13/18 Allergies Allergy/AdvReac Type Severity Reaction Status Date / Time No Known Allergies Allergy Verified 07/13/18 16:40 Review of Systems ROS Statement: Those systems with pertinent positive or pertinent negative responses have been documented in the HPI. ROS Other: All systems not noted in ROS Statement are negative. Past Medical History Past Medical History: Asthma, Diabetes Mellitus, Fibromyalgia, Pulmonary Embolus (PE), Sleep Apnea/CPAP/BIPAP, Thyroid Disorder Additional Past Medical History / Comment(s): CECILIA maintained on CPAP pressure of 10 cm of water, morbid obesity. HX PE AFTER HYSTERECTOMY 2013 History of Any Multi-Drug Resistant Organisms: None Reported Past Surgical History: Back Surgery, Bariatric Surgery, Section, Hysterectomy, Tubal Ligation Additional Past Surgical History / Comment(s): LAP BAND 2007, THYROIDECTOMY, Repair of left ureter Past Anesthesia/Blood Transfusion Reactions: No Reported Reaction Past Psychological History: Anxiety, Depression Smoking Status: Former smoker Past Alcohol Use History: Occasional Past Drug Use History: None Reported - Past Family History Mother Family Medical History: No Reported History Additional Family Medical History / Comment(s): Mother is alive at age 66 with history of diabetes, hypertension, hyperlipidemia. Father Additional Family Medical History / Comment(s): Father is alive at age 66 with history of diabetes, hypertension, hyperlipidemia, 2 myocardial infarctions and a stroke. Brother(s) Additional Family Medical History / Comment(s): Patient has 4 brothers and 1 sister with no major medical problems. Patient has 2 sons with no major medical problems. General Exam Limitations: no limitations General appearance: alert, in no apparent distress Head exam: Present: atraumatic, normocephalic, normal inspection Eye exam: Present: normal appearance, PERRL, EOMI. Absent: scleral icterus, conjunctival injection, periorbital swelling ENT exam: Present: normal exam, normal oropharynx, mucous membranes moist, TM's normal bilaterally, normal external ear exam, other (mild nasal congestion) Neck exam: Present: normal inspection, full ROM. Absent: tenderness, meningismus, lymphadenopathy Respiratory exam: Present: decreased breath sounds (diminished breath sounds in the RLQ). Absent: respiratory distress, wheezes, rales, rhonchi, stridor Cardiovascular Exam: Present: regular rate, normal rhythm, normal heart sounds. Absent: systolic murmur, diastolic murmur, rubs, gallop, clicks Neurological exam: Present: alert, oriented X3, CN II-XII intact Psychiatric exam: Present: normal affect, normal mood Course Vital Signs 07/13/18 07/13/18 16:15 18:30 Temperature 98.6 F Pulse Rate 98 94 Respiratory 20 18 Rate Blood Pressure 155/90 115/60 O2 Sat by Pulse 100 100 Oximetry EKG Findings - EKG Comments: EKG Findings:: Normal sinus rhythm, right atrial enlargement, ventricular rate 90, MO interval 170, QT 424, QTc 518 Medical Decision Making - Medical Decision Making 48-year-old presents for multiple complaints. Patient states she has a cough with worsening shortness of breath. Patient states this cough and shortness of breath worsened yesterday. Patient denies any chest pain. Vitals within acceptable limits. Patient is 100% on room air. Patient is afebrile here with a temperature of 98.6 although is complaining of low-grade fevers at home. CBC CMP unremarkable. Influenza is negative. EKG does show a normal sinus rhythm however does have some widening of the QRS compared to old EKG as well as a QTC of 518. EKG from 2014 shows a QTC of 4:30. Troponin less than 0.012. Chest x- ray does show a subtle retrocardiac opacity consistent with pneumonia. Given patient's history of low-grade fevers at home as well as cough with shortness of breath pneumonia is consistent with patient's symptoms. Patient was given Rocephin. Patient has a prolonged QT as well as is requiring antibiotics for pneumonia such as azithromycin or Levaquin which are known to contribute to QT prolongation patient will be kept in the hospital for further evaluation of QTC prolongation and IV antibiotics. - Lab Data Result diagrams: 07/13/18 17:26 07/13/18 17:26 Lab Results 07/13/18 07/13/18 07/13/18 Range/Units 16:56 17:26 17:26 WBC 8.8 (3.8-10.6) k/uL RBC 4.12 (3.80-5.40) m/uL Hgb 12.0 (11.4-16.0) gm/dL Hct 36.3 (34.0-46.0) % MCV 88.2 (80.0-100.0) fL MCH 29.2 (25.0-35.0) pg MCHC 33.1 (31.0-37.0) g/dL RDW 13.8 (11.5-15.5) % Plt Count 285 (150-450) k/uL Neutrophils % 64 % Lymphocytes % 21 % Monocytes % 5 % Eosinophils % 6 % Basophils % 0 % Neutrophils # 5.6 (1.3-7.7) k/uL Lymphocytes # 1.8 (1.0-4.8) k/uL Monocytes # 0.5 (0-1.0) k/uL Eosinophils # 0.5 (0-0.7) k/uL Basophils # 0.0 (0-0.2) k/uL PT (9.0-12.0) sec INR (<1.2) APTT (22.0-30.0) sec Sodium (137-145) mmol/L Potassium (3.5-5.1) mmol/L Chloride (98-107) mmol/L Carbon Dioxide (22-30) mmol/L Anion Gap mmol/L BUN (7-17) mg/dL Creatinine (0.52-1.04) mg/dL Est GFR (CKD-EPI)AfAm (>60 ml/min/1.73 sqM) Est GFR (CKD-EPI)NonAf (>60 ml/min/1.73 sqM) Glucose (74-99) mg/dL Plasma Lactic Acid [place] (0.7-2.0) mmol/L Calcium (8.4-10.2) mg/dL Magnesium (1.6-2.3) mg/dL Total Bilirubin (0.2-1.3) mg/dL AST (14-36) U/L ALT (9-52) U/L Alkaline Phosphatase (38-126) U/L Total Creatine Kinase 208 H (30-135) U/L CK-MB (CK-2) 0.9 (0.0-2.4) ng/mL CK-MB (CK-2) Rel Index 0.4 Troponin I <0.012 (0.000-0.034) ng/mL NT-Pro-B Natriuret Pep pg/mL Total Protein (6.3-8.2) g/dL Albumin (3.5-5.0) g/dL Influenza Type A RNA Not Detected (Not Detectd) Influenza Type B (PCR) Not Detected (Not Detectd) 07/13/18 07/13/18 07/13/18 Range/Units 17:26 17:26 17:26 WBC (3.8-10.6) k/uL RBC (3.80-5.40) m/uL Hgb (11.4-16.0) gm/dL Hct (34.0-46.0) % MCV (80.0-100.0) fL MCH (25.0-35.0) pg MCHC (31.0-37.0) g/dL RDW (11.5-15.5) % Plt Count (150-450) k/uL Neutrophils % % Lymphocytes % % Monocytes % % Eosinophils % % Basophils % % Neutrophils # (1.3-7.7) k/uL Lymphocytes # (1.0-4.8) k/uL Monocytes # (0-1.0) k/uL Eosinophils # (0-0.7) k/uL Basophils # (0-0.2) k/uL PT 10.3 (9.0-12.0) sec INR 1.0 (<1.2) APTT 24.1 (22.0-30.0) sec Sodium 136 L (137-145) mmol/L Potassium 4.2 (3.5-5.1) mmol/L Chloride 104 (98-107) mmol/L Carbon Dioxide 24 (22-30) mmol/L Anion Gap 8 mmol/L BUN 13 (7-17) mg/dL Creatinine 0.57 (0.52-1.04) mg/dL Est GFR (CKD-EPI)AfAm >90 (>60 ml/min/1.73 sqM) Est GFR (CKD-EPI)NonAf >90 (>60 ml/min/1.73 sqM) Glucose 219 H (74-99) mg/dL Plasma Lactic Acid [place] (0.7-2.0) mmol/L Calcium 9.3 (8.4-10.2) mg/dL Magnesium 1.6 (1.6-2.3) mg/dL Total Bilirubin 0.2 (0.2-1.3) mg/dL AST 28 (14-36) U/L ALT 24 (9-52) U/L Alkaline Phosphatase 82 (38-126) U/L Total Creatine Kinase (30-135) U/L CK-MB (CK-2) (0.0-2.4) ng/mL CK-MB (CK-2) Rel Index Troponin I (0.000-0.034) ng/mL NT-Pro-B Natriuret Pep 77 pg/mL Total Protein 6.9 (6.3-8.2) g/dL Albumin 3.5 (3.5-5.0) g/dL Influenza Type A RNA (Not Detectd) Influenza Type B (PCR) (Not Detectd) 07/13/18 Range/Units 17:26 WBC (3.8-10.6) k/uL RBC (3.80-5.40) m/uL Hgb (11.4-16.0) gm/dL Hct (34.0-46.0) % MCV (80.0-100.0) fL MCH (25.0-35.0) pg MCHC (31.0-37.0) g/dL RDW (11.5-15.5) % Plt Count (150-450) k/uL Neutrophils % % Lymphocytes % % Monocytes % % Eosinophils % % Basophils % % Neutrophils # (1.3-7.7) k/uL Lymphocytes # (1.0-4.8) k/uL Monocytes # (0-1.0) k/uL Eosinophils # (0-0.7) k/uL Basophils # (0-0.2) k/uL PT (9.0-12.0) sec INR (<1.2) APTT (22.0-30.0) sec Sodium (137-145) mmol/L Potassium (3.5-5.1) mmol/L Chloride (98-107) mmol/L Carbon Dioxide (22-30) mmol/L Anion Gap mmol/L BUN (7-17) mg/dL Creatinine (0.52-1.04) mg/dL Est GFR (CKD-EPI)AfAm (>60 ml/min/1.73 sqM) Est GFR (CKD-EPI)NonAf (>60 ml/min/1.73 sqM) Glucose (74-99) mg/dL Plasma Lactic Acid [place] 1.6 (0.7-2.0) mmol/L Calcium (8.4-10.2) mg/dL Magnesium (1.6-2.3) mg/dL Total Bilirubin (0.2-1.3) mg/dL AST (14-36) U/L ALT (9-52) U/L Alkaline Phosphatase (38-126) U/L Total Creatine Kinase (30-135) U/L CK-MB (CK-2) (0.0-2.4) ng/mL CK-MB (CK-2) Rel Index Troponin I (0.000-0.034) ng/mL NT-Pro-B Natriuret Pep pg/mL Total Protein (6.3-8.2) g/dL Albumin (3.5-5.0) g/dL Influenza Type A RNA (Not Detectd) Influenza Type B (PCR) (Not Detectd) - EKG Data -: EKG Interpreted by Me (and Dr Kasper) Disposition Clinical Impression: Pneumonia, QT prolongation Disposition: ADMITTED IP TO THIS HOSP Condition: Good Prescriptions: Azithromycin [Zithromax Z-pack] 250 mg PO DIRECTED #6 tab Is patient prescribed a controlled substance at d/c from ED?: No Referrals: Sindhu Morrow MD [Primary Care Provider] - 1-2 days Time of Disposition: 19:26
[2018-07-13 17:54] LABS: Basophils % (A) 0 %; Eosinophils # (A) 0.5 k/uL (0-0.7); Eosinophils % (A) 6 %; HCT 36.3 % (34.0-46.0); Lymphocytes # (A) 1.8 k/uL (1.0-4.8); Lymphocytes % (A) 21 %; MCH 29.2 pg (25.0-35.0); MCHC 33.1 g/dL (31.0-37.0); MCV 88.2 fL (80.0-100.0); Mean Platelet Volume 7.6; Monocytes # (A) 0.5 k/uL (0-1.0); Monocytes % (A) 5 %; Neutrophils # (A) 5.6 k/uL (1.3-7.7); Neutrophils % (A) 64 %; Platelet Count 285 k/uL (150-450); RBC 4.12 m/uL (3.80-5.40); RDW 13.8 % (11.5-15.5); WBC 8.8 k/uL (3.8-10.6)
[2018-07-13 18:03] LABS: Partial Thromboplastin Time 24.1 sec (22.0-30.0); Prothrombin Time 10.3 sec (9.0-12.0)
[2018-07-13 18:19] LABS: ALT 24 U/L (9-52); AST 28 U/L (14-36); Albumin 3.5 g/dL (3.5-5.0); Alkaline Phosphatase 82 U/L (38-126); Anion Gap 8 mmol/L; Blood Urea Nitrogen 13 mg/dL (7-17); Calcium 9.3 mg/dL (8.4-10.2); Carbon Dioxide 24 mmol/L (22-30); Chloride 104 mmol/L (98-107); Glucose 219 mg/dL (74-99); Magnesium 1.6 mg/dL (1.6-2.3); Potassium 4.2 mmol/L (3.5-5.1); Sodium 136 mmol/L (137-145); Total Bilirubin 0.2 mg/dL (0.2-1.3); Total Protein 6.9 g/dL (6.3-8.2)
--- NOTE | 2018-07-13 18:21 | XR ---
EXAMINATION: XR chest 2V DATE AND TIME: 07/13/2018 5:13 PM CLINICAL INDICATION: PHH; Pain TECHNIQUE: Departmental protocol COMPARISON: 03/25/2014 FINDINGS: The overlying soft tissues are prominent. There is minimal silhouetting of the dome of the left hemidiaphragm, with added retrocardiac opacity and air bronchograms. This finding is consistent with minimal partial atelectasis and/or bronchopneum onia of the left lower lobe. The vast bulk of the lung parenchyma is clear and well expanded. The pleural spaces are negative. The cardiac silhouette is top normal in size. Remainder of the mediastinal silhouette is unremarkable . The skeletal structures and soft tissues are negative for acute findings. IMPRESSION: Subtle retrocardiac opacity consistent with mild left lower lobe atelectasis and/or pneumonia.
[2018-07-13 18:30] LABS: Creatine Kinase 208 U/L (30-135)
[2018-07-13 18:44] LABS: Creatine Kinase MB 0.9 ng/mL (0.0-2.4); Troponin I <0.012 ng/mL (0.000-0.034)
[2018-07-13] MEDS ORDERED: traMADol 50 MG TAB PO PRN (19:45)
[2018-07-13] MEDS ORDERED: NALOXONE 0.4 MG/ML 1 ML VIAL IV PRN (19:45)
[2018-07-13] MEDS ORDERED: IBUPROFEN 400 MG TAB PO PRN (19:45)
[2018-07-13] MEDS: SODIUM CHLORIDE 0.9% 1,000 ML IV SCH (20:18)
[2018-07-13] MEDS: MAGNESIUM SULFATE-D5W PMX 1 GM in DEXTROSE/WATER 1 100ML.BAG IVPB SCH ×3 (20:19→23:15)
[2018-07-13] MEDS: ACETAMINOPHEN TAB 325 MG TAB PO PRN (20:22)
[2018-07-13] MEDS ORDERED: IPRATROPIUM-ALBUTEROL 3 ML NEB INHALATION PRN (23:13)
[2018-07-13] MEDS ORDERED: GABAPENTIN 300 MG CAP PO SCH (23:15)
[2018-07-13] MEDS ORDERED: MONTELUKAST 10 MG TAB PO SCH (23:15)
[2018-07-13] MEDS: busPIRone HCl 5 MG TAB PO SCH (23:22)
[2018-07-13] MEDS: metFORMIN 500 MG TAB PO SCH (23:23)
[2018-07-14] MEDS: MAGNESIUM SULFATE-D5W PMX 1 GM in DEXTROSE/WATER 1 100ML.BAG IVPB SCH (00:40)
[2018-07-14] MEDS: IPRATROPIUM-ALBUTEROL 3 ML NEB INHALATION SCH ×3 (03:20→11:27)
[2018-07-14 04:19] VITALS: RESP 16
[2018-07-14] MEDS ORDERED: LEVOTHYROXINE 75 MCG TAB PO SCH (06:30)
[2018-07-14] MEDS ORDERED: LEVOTHYROXINE 100 MCG TAB PO SCH (06:30)
[2018-07-14 06:31] LABS: Basophils % (A) 1 %; Eosinophils # (A) 0.5 k/uL (0-0.7); Eosinophils % (A) 7 %; HCT 35.1 % (34.0-46.0); HGB 11.1 gm/dL (11.4-16.0); Lymphocytes # (A) 1.5 k/uL (1.0-4.8); Lymphocytes % (A) 21 %; MCH 28.4 pg (25.0-35.0); MCHC 31.4 g/dL (31.0-37.0); MCV 90.4 fL (80.0-100.0); Mean Platelet Volume 6.9; Monocytes # (A) 0.4 k/uL (0-1.0); Monocytes % (A) 6 %; Neutrophils # (A) 4.5 k/uL (1.3-7.7); Neutrophils % (A) 63 %; Platelet Count 256 k/uL (150-450); RBC 3.89 m/uL (3.80-5.40); RDW 13.7 % (11.5-15.5); WBC 7.2 k/uL (3.8-10.6)
[2018-07-14 06:38] LABS: Glucose,Whole Blood 164 mg/dL (75-99)
[2018-07-14 06:42] LABS: Anion Gap 4 mmol/L; Blood Urea Nitrogen 9 mg/dL (7-17); Calcium 8.8 mg/dL (8.4-10.2); Carbon Dioxide 28 mmol/L (22-30); Chloride 107 mmol/L (98-107); Glucose 193 mg/dL (74-99); Magnesium 2.2 mg/dL (1.6-2.3); Potassium 4.4 mmol/L (3.5-5.1); Sodium 139 mmol/L (137-145)
[2018-07-14] MEDS ORDERED: INSULIN ASPART 100 UNIT/ML 1 ML 10 ML VIAL SQ SCH (07:30)
[2018-07-14] MEDS: busPIRone HCl 5 MG TAB PO SCH (09:21)
[2018-07-14] MEDS: metFORMIN 500 MG TAB PO SCH (09:21)
[2018-07-14] MEDS: ACETAMINOPHEN TAB 325 MG TAB PO PRN (09:24)
[2018-07-14] MEDS: SODIUM CHLORIDE 0.9% 1,000 ML IV SCH (09:25)
--- NOTE | 2018-07-14 11:00 | P.DS ---
Providers Date of admission: 07/13/18 21:03 Attending physician: Vega Lira Primary care physician: [facility] Hospital Course: Please refer to my HPI Patient Condition at Discharge: Good Plan - Discharge Summary Discharge Rx Participant: No New Discharge Prescriptions: New Cefuroxime Axetil [Ceftin] 500 mg PO BID #14 tab Continue metFORMIN HCL 1,000 mg PO BID Multivit-Min36/Iron/Folic Acid [Geritol Complete Tablet] 1 tab PO DAILY INSULIN LISPRO (humaLOG) [humaLOG] See Protocol SQ AC-TID PRN PRN Reason: HIGH BLOOD SUGAR Liraglutide [Victoza 2-Soham] 1.8 mg SQ DAILY Montelukast [Singulair] 10 mg PO HS Vitamin E 180mg 180 mg PO DAILY busPIRone HCL 15 mg PO BID Pioglitazone [Actos] 45 mg PO DAILY Linaclotide [Linzess] 72 mcg PO DAILY Gabapentin [Neurontin] 600 mg PO HS Cholecalciferol [Vitamin D3] 1,000 unit PO DAILY Levothyroxine Sodium [Synthroid] 175 mcg PO DAILY Changed FLUoxetine HCL [PROzac] 20 mg PO DAILY #0 Discharge Medication List metFORMIN HCL 1,000 mg PO BID 03/09/14 [History] Multivit-Min36/Iron/Folic Acid [Geritol Complete Tablet] 1 tab PO DAILY [History] INSULIN LISPRO (humaLOG) [humaLOG] See Protocol SQ AC-TID PRN 05/10/17 [History] Liraglutide [Victoza 2-Soham] 1.8 mg SQ DAILY 05/10/17 [History] Montelukast [Singulair] 10 mg PO HS 05/10/17 [History] Gabapentin [Neurontin] 600 mg PO HS 10/27/17 [History] Linaclotide [Linzess] 72 mcg PO DAILY 10/27/17 [History] Pioglitazone [Actos] 45 mg PO DAILY 10/27/17 [History] Vitamin E 180mg 180 mg PO DAILY 10/27/17 [History] busPIRone HCL 15 mg PO BID 10/27/17 [History] Cholecalciferol [Vitamin D3] 1,000 unit PO DAILY 07/13/18 [History] Levothyroxine Sodium [Synthroid] 175 mcg PO DAILY 07/13/18 [History] Cefuroxime Axetil [Ceftin] 500 mg PO BID #14 tab 07/14/18 [Rx] FLUoxetine HCL [PROzac] 20 mg PO DAILY #0 07/14/18 [Rx] Follow up Appointment(s)/Referral(s): Sindhu Morrow MD [Primary Care Provider] - 07/16/18 9:45 am (Thursday -appointment on the is cancelled) Patient Instructions/Handouts: Pneumonia (DC) Activity/Diet/Wound Care/Special Instructions: Patient can return to Work next Thursday07/19/18 Discharge Disposition: HOME SELF-CARE
--- NOTE | 2018-07-14 11:00 | P.HPIM ---
History of Present Illness 48-year-old female came in with comments of cough without any significant sputum production or shortness of breath patient does have sinus pain and sinus tenderness patient appears to have acute bacterial sinusitis. Chest x-ray did did show some rectal cardiac shadow suspicious for pneumonia although patient does not have any leukocytosis or fever. Patient may have early-stage pneumonia patient. Patient doesn't smoke on regular basis. Patient is not wheezing on exam will not require any systemic steroids. Patient can be treated as an outpatient for acute bacterial sinusitis or mild pneumonia patient will be discharged on a week of Ceftin. Patient does have mildly prolonged QT with intraventricular block. Dose of Prozac will be reduced to 20 mg repeat EKG done because can be done as an outpatient. Patient to follow with the psychiatrist closely and readjust medication considering her prolonged QT. Review of Systems REVIEW OF SYSTEMS: CONSTITUTIONAL: No fever, no malaise, no fatigue. HEENT: No recent visual problems or hearing problems. Denied any sore throat. CARDIOVASCULAR: No chest pain, orthopnea, PND, no palpitations, no syncope. PULMONARY:no hemoptysis. GASTROINTESTINAL: No diarrhea, no nausea, no vomiting, no abdominal pain. NEUROLOGICAL: No headaches, no weakness, no numbness. HEMATOLOGICAL: Denies any bleeding or petechiae. GENITOURINARY: Denies any burning micturition, frequency, or urgency. MUSCULOSKELETAL/RHEUMATOLOGICAL: Denies any joint pain, swelling, or any muscle pain. ENDOCRINE: Denies any polyuria or polydipsia. The rest of the 14-point review of systems is negative. Past Medical History Past Medical History: Asthma, Diabetes Mellitus, Fibromyalgia, Pneumonia, Pulmonary Embolus (PE), Sleep Apnea/CPAP/BIPAP, Thyroid Disorder Additional Past Medical History / Comment(s): CECILIA maintained on CPAP pressure of 10 cm of water, morbid obesity.lumbar disc disease(sx), past thyroid goiter( sx). "alternates constipation/diarrhea, vit d deficiency, anxiety/depression. HX PE AFTER HYSTERECTOMY 2013 History of Any Multi-Drug Resistant Organisms: None Reported Past Surgical History: Back Surgery, Bariatric Surgery, Section, Hysterectomy, Tubal Ligation Additional Past Surgical History / Comment(s): LAP BAND 2007, THYROIDECTOMY, lumbar fusion 2004 and revision done 2005(pt stated has had recurrent fevers since andthat testing has'nt found anything conclusive yet",colonoscopy/egd, partial hysterectomy "still has ovaries" Repair of left ureter, x2 c-sections. claudio carapl tunnel release.pt stated at age 13 had a sx on pancreas but poor historian as to details Past Anesthesia/Blood Transfusion Reactions: No Reported Reaction Additional Past Anesthesia/Blood Transfusion Reaction / Comment(s): blood transfusion at age 13 Smoking Status: Former smoker - Past Family History Mother Family Medical History: No Reported History Additional Family Medical History / Comment(s): Mother is alive at age 66 with history of diabetes, hypertension, hyperlipidemia. Father Additional Family Medical History / Comment(s): Father is alive at age 66 with history of diabetes, hypertension, hyperlipidemia, 2 myocardial infarctions and a stroke. Brother(s) Additional Family Medical History / Comment(s): Patient has 4 brothers and 1 sister with no major medical problems. Patient has 2 sons with no major medical problems. Medications and Allergies Home Medications Medication Instructions Recorded Confirmed Type metFORMIN HCL 1,000 mg PO BID 03/09/14 07/13/18 History FLUoxetine HCL [PROzac] 40 mg PO DAILY 05/14/16 07/13/18 History Multivit-Min36/Iron/Folic Acid 1 tab PO DAILY 12/22/16 07/13/18 History [Geritol Complete Tablet] INSULIN LISPRO (humaLOG) [humaLOG] See Protocol SQ AC-TID PRN 05/10/17 07/13/18 History Liraglutide [Victoza 2-Soham] 1.8 mg SQ DAILY 05/10/17 07/13/18 History Montelukast [Singulair] 10 mg PO HS 05/10/17 07/13/18 History Gabapentin [Neurontin] 600 mg PO HS 10/27/17 07/13/18 History Linaclotide [Linzess] 72 mcg PO DAILY 10/27/17 07/13/18 History Pioglitazone [Actos] 45 mg PO DAILY 10/27/17 07/13/18 History Vitamin E 180mg 180 mg PO DAILY 10/27/17 07/13/18 History busPIRone HCL 15 mg PO BID 10/27/17 07/13/18 History Cholecalciferol [Vitamin D3] 1,000 unit PO DAILY 07/13/18 07/13/18 History Levothyroxine Sodium [Synthroid] 175 mcg PO DAILY 07/13/18 07/13/18 History Cefuroxime Axetil [Ceftin] 500 mg PO BID #14 tab 07/14/18 Rx Allergies Allergy/AdvReac Type Severity Reaction Status Date / Time No Known Allergies Allergy Verified 07/13/18 16:40 Physical Exam Vitals: Vital Signs Temp Pulse Pulse Resp BP BP Pulse Ox 07/14/18 08:23 76 07/14/18 08:14 76 07/14/18 04:20 89 07/14/18 04:17 97.8 F 89 16 118/80 97 07/13/18 22:57 17 07/13/18 22:43 97.9 F 93 17 143/82 99 07/13/18 21:42 98.1 F 96 18 128/74 99 07/13/18 20:30 98.2 F 94 18 127/79 100 07/13/18 18:30 94 18 115/60 100 07/13/18 16:15 98.6 F 98 20 155/90 100 Intake and Output 07/13/18 07/14/18 07/14/18 22:59 06:59 14:59 Intake Total 800 240 Balance 800 240 Intake: Intake, IV Titration 800 Amount Magnesium Sulfate-D5w Pmx 400 1 gm In Dextrose/Water 1 100ml.bag @ 100 mls/hr IVPB Q1H [facility] Rx#: [id number] Sodium Chloride 0.9% 1, 400 000 ml @ 100 mls/hr IV . Q10H [facility] Rx#:[id number] Oral 240 Other: Voiding Method Toilet Toilet # Voids 2 Weight 108.862 kg 108.1 kg PHYSICAL EXAMINATION: GENERAL: The patient is alert and oriented x3, not in any acute distress. Well developed, well nourished. HEENT: Pupils are round and equally reacting to light. EOMI. No scleral icterus. No conjunctival pallor. Normocephalic, atraumatic. No pharyngeal erythema. No thyromegaly. She does have sinus tenderness CARDIOVASCULAR: S1 and S2 present. No murmurs, rubs, or gallops. PULMONARY: Chest is clear to auscultation, no wheezing or crackles. ABDOMEN: Soft, nontender, nondistended, normoactive bowel sounds. No palpable organomegaly. MUSCULOSKELETAL: No joint swelling or deformity. EXTREMITIES: No cyanosis, clubbing, or pedal edema. NEUROLOGICAL: Gross neurological examination did not reveal any focal deficits. SKIN: No rashes. Results CBC & Chem 7: 07/14/18 06:02 07/14/18 06:02 Labs: Abnormal Lab Results - Last 24 Hours (Table) 07/13/18 07/13/18 07/14/18 Range/Units 17:26 17:26 06:02 Hgb 11.1 L (11.4-16.0) gm/dL Sodium 136 L (137-145) mmol/L Glucose 219 H (74-99) mg/dL POC Glucose (mg/dL) (75-99) mg/dL Total Creatine Kinase 208 H (30-135) U/L 07/14/18 07/14/18 Range/Units 06:02 06:19 Hgb (11.4-16.0) gm/dL Sodium (137-145) mmol/L Glucose 193 H (74-99) mg/dL POC Glucose (mg/dL) 164 H (75-99) mg/dL Total Creatine Kinase (30-135) U/L Thrombosis Risk Factor Assmnt - Choose All That Apply Each Factor Represents 1 point: Age 41-60 years, Obesity (BMI >25) Each Risk Factor Represents 3 Points: History of DVT/PE Other congenital or acquired thrombophilia - If yes, enter type in comment: No Thrombosis Risk Factor Assessment Total Risk Factor Score: 5 Thrombosis Risk Factor Assessment Level: High Risk Assessment and Plan Plan: -Acute bacterial sinusitis or probably early stages of come in today quite pneumonia: Patient will be discharged on Ceftin for 7 days. -Prolonged QT: We'll cut down the Prozac dose and patient was to follow-up with psychiatrist closely and readjust medications -Type 2 diabetes mellitus and patient will resume her home regimen and titration as an outpatient next and-hypothyroidism -Diabetic peripheral neuropathy for which patient will continue with gabapentin -Sleep apnea and obesity: Dietary counseling was provided and the patient will continue with her CPAP machine -Fibromyalgia
[2018-07-14 11:04] VITALS: BP 154/85; TEMP 98.4
[2018-07-14 11:36] VITALS: PULSE 79
[2018-07-14 11:55] LABS: Glucose,Whole Blood 310 mg/dL (75-99)
[2018-07-14 15:00] LABS: Hemoglobin A1C 8.7 % (4.0-6.0)
== END 2018-07-14 12:41 | disposition home or self-care (01) | DRG 195 ==
LOC: EC 16:08 → 3SCARD 21:03
PROVIDERS: ADMIT Hospitalist; ATTEND Hospitalist
DX: J18.9 Pneumonia, unspecified organism (principal); E11.42 Type 2 diabetes mellitus with diabetic polyneuropathy; E66.01 Morbid (severe) obesity due to excess calories; I45.81 Long QT syndrome; J01.90 Acute sinusitis, unspecified; B96.89 Other specified bacterial agents as the cause of diseases classified elsewhere; G47.33 Obstructive sleep apnea (adult) (pediatric); M79.7 Fibromyalgia; M51.9 Unspecified thoracic, thoracolumbar and lumbosacral intervertebral disc disorder; E55.9 Vitamin D deficiency, unspecified; J45.909 Unspecified asthma, uncomplicated; E89.0 Postprocedural hypothyroidism; F32.9 Major depressive disorder, single episode, unspecified; F41.9 Anxiety disorder, unspecified; I45.4 Nonspecific intraventricular block; Z68.39 Body mass index [BMI] 39.0-39.9, adult; Z79.890 Hormone replacement therapy; Z79.4 Long term (current) use of insulin; Z79.899 Other long term (current) drug therapy; Z71.3 Dietary counseling and surveillance; Z99.89 Dependence on other enabling machines and devices; Z98.84 Bariatric surgery status; Z98.891 History of uterine scar from previous surgery; Z90.710 Acquired absence of both cervix and uterus; Z98.51 Tubal ligation status; Z86.711 Personal history of pulmonary embolism; Z87.891 Personal history of nicotine dependence; Z98.1 Arthrodesis status; Z83.3 Family history of diabetes mellitus; Z82.49 Family history of ischemic heart disease and other diseases of the circulatory system; Z83.49 Family history of other endocrine, nutritional and metabolic diseases; Z82.3 Family history of stroke
CPT/HCPCS: 36415; 71046; 80048; 80053; 82550; 82553; 83036; 83605; 83735; 83880; 84100; 84484; 85025; 85610; 85730; 87040; 87502; 93005; 94640; 96361; 96365; 96366; 96367; 99285

== ENCOUNTER → 2018-07-20 | Outpatient (CLI) | payer MEDICARE, OTHER ==
--- NOTE | 2018-07-20 17:16 | XR ---
EXAMINATION TYPE: XR chest 2V DATE OF EXAM: 07/20/2018 COMPARISON: 07/13/2018 HISTORY: Pneumonia TECHNIQUE: Frontal and lateral views of the chest are obtained. FINDINGS: Heart and mediastinum are normal. Lungs are clear. Diaphragm is normal. Bony thorax appear s normal. IMPRESSION: Normal chest. There is clearing of the mild infiltrate left lower lobe compared to last exam.
== END | disposition home or self-care (01) ==
LOC: RADXRMAIN 16:51
PROVIDERS: ATTEND Family Medicine
DX: J18.1 Lobar pneumonia, unspecified organism (principal)
CPT/HCPCS: 71046

== ENCOUNTER 2018-08-30 11:27 | Observation (INO) | payer MEDICARE, OTHER ==
[2018-08-30] MEDS ORDERED: IPRATROPIUM-ALBUTEROL 3 ML NEB INHALATION STA ×2 (12:11→13:43)
[2018-08-30] MEDS ORDERED: SODIUM CHLORIDE 0.9% 1,000 ML IV STA (12:11)
[2018-08-30] MEDS ORDERED: methylPREDNISolone SOD SUCCI 125 MG/2 ML VIAL IV STA (12:11)
--- NOTE | 2018-08-30 12:20 | ED ---
SOB HPI - General Chief Complaint: Shortness of Breath Stated Complaint: Hx Pneumonia, ANNABELLE Time Seen by Provider: 08/30/18 12:00 Source: patient, RN notes reviewed Mode of arrival: ambulatory Limitations: no limitations - History of Present Illness Initial Comments: This a 48-year-old female history of asthma also history of diabetes who states she was seen at [facility] emergency department last week, 4 days ago, she was diagnosed at that time with pneumonia and asthma exacerbation. She states she was sent home on medications she's not a better she is intact feeling like she is getting worse. She denies any overt fevers chills or sweats she says a persistent cough shortness of breath exertional dyspnea with even walking or talking. Just has some sharp midsternal chest pain earlier today which is since resolved. No trauma reported no other modifying factors MD Complaint: shortness of breath, cough - Related Data Home Medications Medication Instructions Recorded Confirmed metFORMIN HCL 1,000 mg PO BID 03/09/14 08/30/18 Multivit-Min36/Iron/Folic Acid 1 tab PO DAILY 12/22/16 08/30/18 [Geritol Complete Tablet] Liraglutide [Victoza 2-Soham] 1.2 mg SQ DAILY 05/10/17 08/30/18 Montelukast [Singulair] 10 mg PO HS 05/10/17 08/30/18 Linaclotide [Linzess] 72 mcg PO DAILY 10/27/17 08/30/18 Vitamin E 180mg 180 mg PO DAILY 10/27/17 08/30/18 busPIRone HCL 15 mg PO BID 10/27/17 08/30/18 Cholecalciferol [Vitamin D3] 1,000 unit PO DAILY 07/13/18 08/30/18 Levothyroxine Sodium [Synthroid] 175 mcg PO DAILY 07/13/18 08/30/18 Albuterol Sulfate [Proair Hfa] 1 - 2 puff INHALATION RT-QID PRN 08/30/18 08/30/18 Cephalexin [Keflex] 500 mg PO BID 08/30/18 08/30/18 Cinnamon Bark [Cinnamon] 500 - 1,000 mg PO BID 08/30/18 08/30/18 FLUoxetine HCL [PROzac] 40 mg PO DAILY 08/30/18 08/30/18 Insulin Glargine,Hum.rec.anlog 15 units SQ DAILY 08/30/18 08/30/18 [Toujeo Solostar] Magnesium(Unknown Dose) 1 tab PO DAILY 08/30/18 08/30/18 Mometasone/Formoterol [Dulera 200 2 puff INHALATION RT-DAILY 08/30/18 08/30/18 Mcg/5 Mcg Inhaler] Omeprazole 20 mg PO DAILY 08/30/18 08/30/18 Pioglitazone [Actos] 30 mg PO DAILY 08/30/18 08/30/18 Allergies Allergy/AdvReac Type Severity Reaction Status Date / Time No Known Allergies Allergy Verified 08/30/18 12:01 Review of Systems ROS Statement: Those systems with pertinent positive or pertinent negative responses have been documented in the HPI. ROS Other: All systems not noted in ROS Statement are negative. Past Medical History Past Medical History: Asthma, Diabetes Mellitus, Fibromyalgia, Pneumonia, Pulmonary Embolus (PE), Sleep Apnea/CPAP/BIPAP, Thyroid Disorder Additional Past Medical History / Comment(s): CECILIA maintained on CPAP pressure of 10 cm of water, morbid obesity.lumbar disc disease(sx), past thyroid goiter(sx). "alternates constipation/diarrhea, vit d deficiency, anxiety/depression. HX PE AFTER HYSTERECTOMY 2013 History of Any Multi-Drug Resistant Organisms: None Reported Past Surgical History: Back Surgery, Bariatric Surgery, Section, Hysterectomy, Tubal Ligation Additional Past Surgical History / Comment(s): LAP BAND 2007, THYROIDECTOMY,lumbar fusion 2004 and revision done 2005(pt stated has had recurrent fevers since andthat testing has'nt found anything conclusive yet",colonoscopy/egd, partial hysterectomy "still has ovaries" Repair of left ureter, x2 c-sections. claudio carapl tunnel release.pt stated at age 13 had a sx on pancreas but poor historian as to details Past Anesthesia/Blood Transfusion Reactions: No Reported Reaction Additional Past Anesthesia/Blood Transfusion Reaction / Comment(s): blood transfusion at age 13 Past Psychological History: Anxiety, Depression Smoking Status: Former smoker Past Alcohol Use History: Occasional Past Drug Use History: None Reported - Past Family History Mother Family Medical History: No Reported History Additional Family Medical History / Comment(s): Mother is alive at age 66 with history of diabetes, hypertension, hyperlipidemia. Father Additional Family Medical History / Comment(s): Father is alive at age 66 with history of diabetes, hypertension, hyperlipidemia, 2 myocardial infarctions and a stroke. Brother(s) Additional Family Medical History / Comment(s): Patient has 4 brothers and 1 sister with no major medical problems. Patient has 2 sons with no major medical problems. General Exam - General Exam Comments Initial Comments: This a well-developed well-nourished awake alert oriented 3 female Limitations: no limitations General appearance: alert, anxious, in distress Head exam: Present: atraumatic, normocephalic, normal inspection Eye exam: Present: normal appearance, PERRL, EOMI. Absent: scleral icterus, conjunctival injection, periorbital swelling ENT exam: Present: mucous membranes dry, other (No pharyngeal erythema or exudate seen) Neck exam: Present: normal inspection, full ROM, other (No stridor JVD or bruits). Absent: tenderness, meningismus, lymphadenopathy Respiratory exam: Present: normal lung sounds bilaterally, chest wall tenderness (Some midsternal tenderness palpation which seems to re-create the patient's pain), decreased breath sounds. Absent: respiratory distress, wheezes, rales, rhonchi, stridor Cardiovascular Exam: Present: regular rate, normal rhythm, normal heart sounds. Absent: systolic murmur, diastolic murmur, rubs, gallop, clicks GI/Abdominal exam: Present: soft, normal bowel sounds. Absent: distended, tenderness, guarding, rebound, rigid Extremities exam: Present: normal inspection, full ROM, normal capillary refill. Absent: tenderness, pedal edema, joint swelling, calf tenderness Back exam: Present: normal inspection Neurological exam: Present: alert, oriented X3, CN II-XII intact Psychiatric exam: Present: normal affect, normal mood Skin exam: Present: warm, dry, intact, normal color. Absent: rash Course Vital Signs 08/30/18 08/30/18 08/30/18 11:41 12:39 12:47 Temperature 98.9 F Pulse Rate 98 100 102 H Respiratory 18 Rate Blood Pressure 128/74 O2 Sat by Pulse 100 Oximetry 08/30/18 08/30/18 08/30/18 13:53 14:01 14:40 Temperature Pulse Rate 80 84 79 Respiratory 18 Rate Blood Pressure 130/80 O2 Sat by Pulse 99 Oximetry - Reevaluation(s) Reevaluation #1: 08/30/18 14:48 I did reevaluate patient several occasions she had minimal improvement thus far with the treatment that was rendered. This did include updrafts as well as IV steroids. Patient's x-ray did not show any evidence of any infiltrate however the CT results from [facility] did show evidence of lower lobe infiltrates. Reevaluation #2: 08/30/18 14:52 QT today is compared with one from her district and previous who does appear to be some configuration change. Initial cardiac enzymes are within normal limits. Medical Decision Making - Medical Decision Making 1435: I did discuss the case with Dr. Morton. I did discuss case with the patient. Patient will be admitted for failure of treatment of asthma outpatient also EKG changes. Patient will be heparinized and be evaluated by cardiology as well as pulmonary medicine. Of note patient did have a CAT scan of the chest performed 4 days ago and was negative for PE re-CAT scan will be held at this time - Lab Data Result diagrams: 08/30/18 12:20 08/30/18 12:20 Lab Results 08/30/18 08/30/18 08/30/18 Range/Units 12:20 12:20 12:20 WBC 9.3 (3.8-10.6) k/uL RBC 4.30 (3.80-5.40) m/uL Hgb 12.0 (11.4-16.0) gm/dL Hct 38.5 (34.0-46.0) % MCV 89.5 (80.0-100.0) fL MCH 28.0 (25.0-35.0) pg MCHC 31.3 (31.0-37.0) g/dL RDW 14.1 (11.5-15.5) % Plt Count 344 (150-450) k/uL Neutrophils % 69 % Lymphocytes % 19 % Monocytes % 4 % Eosinophils % 7 % Basophils % 0 % Neutrophils # 6.4 (1.3-7.7) k/uL Lymphocytes # 1.7 (1.0-4.8) k/uL Monocytes # 0.4 (0-1.0) k/uL Eosinophils # 0.6 (0-0.7) k/uL Basophils # 0.0 (0-0.2) k/uL Hypochromasia Slight PT 10.4 (9.0-12.0) sec INR 1.0 (<1.2) APTT 23.5 (22.0-30.0) sec D-Dimer 0.69 H (<0.60) mg/L FEU Sodium 138 (137-145) mmol/L Potassium 4.4 (3.5-5.1) mmol/L Chloride 107 (98-107) mmol/L Carbon Dioxide 24 (22-30) mmol/L Anion Gap 7 mmol/L BUN 8 (7-17) mg/dL Creatinine 0.51 L (0.52-1.04) mg/dL Est GFR (CKD-EPI)AfAm >90 (>60 ml/min/1.73 sqM) Est GFR (CKD-EPI)NonAf >90 (>60 ml/min/1.73 sqM) Glucose 201 H (74-99) mg/dL Calcium 9.1 (8.4-10.2) mg/dL Magnesium 1.7 (1.6-2.3) mg/dL Total Bilirubin 0.3 (0.2-1.3) mg/dL AST 20 (14-36) U/L ALT 28 (9-52) U/L Alkaline Phosphatase 82 (38-126) U/L Troponin I (0.000-0.034) ng/mL NT-Pro-B Natriuret Pep pg/mL Total Protein 7.1 (6.3-8.2) g/dL Albumin 3.6 (3.5-5.0) g/dL 08/30/18 08/30/18 Range/Units 12:20 12:20 WBC (3.8-10.6) k/uL RBC (3.80-5.40) m/uL Hgb (11.4-16.0) gm/dL Hct (34.0-46.0) % MCV (80.0-100.0) fL MCH (25.0-35.0) pg MCHC (31.0-37.0) g/dL RDW (11.5-15.5) % Plt Count (150-450) k/uL Neutrophils % % Lymphocytes % % Monocytes % % Eosinophils % % Basophils % % Neutrophils # (1.3-7.7) k/uL Lymphocytes # (1.0-4.8) k/uL Monocytes # (0-1.0) k/uL Eosinophils # (0-0.7) k/uL Basophils # (0-0.2) k/uL Hypochromasia PT (9.0-12.0) sec INR (<1.2) APTT (22.0-30.0) sec D-Dimer (<0.60) mg/L FEU Sodium (137-145) mmol/L Potassium (3.5-5.1) mmol/L Chloride (98-107) mmol/L Carbon Dioxide (22-30) mmol/L Anion Gap mmol/L BUN (7-17) mg/dL Creatinine (0.52-1.04) mg/dL Est GFR (CKD-EPI)AfAm (>60 ml/min/1.73 sqM) Est GFR (CKD-EPI)NonAf (>60 ml/min/1.73 sqM) Glucose (74-99) mg/dL Calcium (8.4-10.2) mg/dL Magnesium (1.6-2.3) mg/dL Total Bilirubin (0.2-1.3) mg/dL AST (14-36) U/L ALT (9-52) U/L Alkaline Phosphatase (38-126) U/L Troponin I <0.012 (0.000-0.034) ng/mL NT-Pro-B Natriuret Pep 226 pg/mL Total Protein (6.3-8.2) g/dL Albumin (3.5-5.0) g/dL - EKG Data -: EKG Interpreted by Me (EKG showed sinus rhythm of 83. Interval 176 QRS duration 144 QT since QTC ) - Radiology Data Radiology results: report reviewed (I did review the imaging and report no evidence of acute findings are seen), image reviewed Critical Care Time Critical Care Time: Yes Critical Care Time: 31 minutes of critical care time which includes initial presentation with history physical labs x-rays multiple evaluations the patient to responsive therapy. Review of old charting was available review charting from [facility] discussion with Dr. Morton admission orders and documentation of the above Disposition Clinical Impression: Acute severe exacerbation of asthma, Acute electrocardiogram changes, Failure of outpatient treatment Disposition: ADMITTED IP TO THIS HOSP Condition: Serious Referrals: Sindhu Morrow MD [Primary Care Provider] - 1-2 days
[2018-08-30 12:46] LABS: Basophils % (A) 0 %; Eosinophils # (A) 0.6 k/uL (0-0.7); Eosinophils % (A) 7 %; HCT 38.5 % (34.0-46.0); Hypochromasia Slight; Lymphocytes # (A) 1.7 k/uL (1.0-4.8); Lymphocytes % (A) 19 %; MCHC 31.3 g/dL (31.0-37.0); MCV 89.5 fL (80.0-100.0); Monocytes # (A) 0.4 k/uL (0-1.0); Monocytes % (A) 4 %; Neutrophils # (A) 6.4 k/uL (1.3-7.7); Neutrophils % (A) 69 %; Platelet Count 344 k/uL (150-450); RDW 14.1 % (11.5-15.5); WBC 9.3 k/uL (3.8-10.6)
[2018-08-30 12:54] LABS: ALT 28 U/L (9-52); AST 20 U/L (14-36); Albumin 3.6 g/dL (3.5-5.0); Alkaline Phosphatase 82 U/L (38-126); Anion Gap 7 mmol/L; Blood Urea Nitrogen 8 mg/dL (7-17); Calcium 9.1 mg/dL (8.4-10.2); Carbon Dioxide 24 mmol/L (22-30); Chloride 107 mmol/L (98-107); Glucose 201 mg/dL (74-99); Magnesium 1.7 mg/dL (1.6-2.3); Potassium 4.4 mmol/L (3.5-5.1); Sodium 138 mmol/L (137-145); Total Bilirubin 0.3 mg/dL (0.2-1.3); Total Protein 7.1 g/dL (6.3-8.2)
[2018-08-30 13:00] LABS: Partial Thromboplastin Time 23.5 sec (22.0-30.0); Prothrombin Time 10.4 sec (9.0-12.0)
[2018-08-30 13:09] LABS: D-Dimer 0.69 mg/L FEU (<0.60)
[2018-08-30] MEDS ORDERED: MAGNESIUM SULFATE-D5W PMX 1 GM in DEXTROSE/WATER 1 100ML.BAG IVPB ONE (13:43)
--- NOTE | 2018-08-30 14:32 | XR ---
EXAMINATION TYPE: XR chest 2V DATE OF EXAM: 08/30/2018 COMPARISON: Prior chest x-ray July 20, 2018 HISTORY: Difficulty breathing, cough and congestion TECHNIQUE: Frontal and lateral views of the chest are obtained. FINDINGS: There is no focal air space opacity, pleural effusion, or pneumothorax seen. The cardiac silhouette size is stable. The osseous structures are intact. There are cardiac leads. Patient is p ost lap band. IMPRESSION: No acute cardiopulmonary process.
[2018-08-30] MEDS ORDERED: NITROGLYCERIN SL TABS 0.4 MG TAB SUBLINGUAL PRN (15:00)
[2018-08-30] MEDS ORDERED: HEPARIN SOD,PORK IN 0.45% NACL 25,000 UNIT in 0.45% NACL 1 250ML.BAG IV SCH (15:00)
[2018-08-30] MEDS ORDERED: HEPARIN SODIUM,PORCINE 5,000 UNIT/ML 1 ML VIAL IV ONE (15:00)
[2018-08-30] MEDS ORDERED: PNEUMONIA PROTOCOL UTILIZED 1 EACH MISC PO PRN (15:02)
[2018-08-30] MEDS ORDERED: AZITHROMYCIN 500 MG in SODIUM CHLORIDE 0.9% 250 ML IVPB STA (15:02)
[2018-08-30 16:21] VITALS: BMI 40.6
[2018-08-30] MEDS: SODIUM CHLORIDE 0.9% 1,000 ML IV SCH (17:27)
[2018-08-30] MEDS: IPRATROPIUM-ALBUTEROL 3 ML NEB INHALATION SCH ×3 (17:54→20:26)
[2018-08-30 18:40] LABS: Glucose,Whole Blood 201 mg/dL (75-99)
[2018-08-30] MEDS: metFORMIN 500 MG TAB PO SCH (18:42)
[2018-08-30] MEDS: methylPREDNISolone SOD SUCCI 125 MG/2 ML VIAL IV SCH (18:43)
[2018-08-30] MEDS ORDERED: IPRATROPIUM-ALBUTEROL 3 ML NEB INHALATION PRN (19:03)
[2018-08-30 20:39] LABS: Glucose,Whole Blood 299 mg/dL (75-99)
[2018-08-30] MEDS ORDERED: guaiFENesin-DM 100-10MG/5ML 10 ML CUP PO PRN (21:03)
[2018-08-30] MEDS: INSULIN ASPART (NovoLOG) 100 UNIT/ML VIAL SQ SCH (21:15)
[2018-08-30] MEDS: MONTELUKAST 10 MG TAB PO SCH (21:15)
--- NOTE | 2018-08-30 23:00 | P.HPIM ---
History of Present Illness H&P Date: 08/30/18 Chief Complaint: Shortness of breath Patient is a 48-year-old female with a known history of diabetes type 2, asthma, previous history of smoking, fibromyalgia, obstructive sleep apnea on CPAP, hypothyroidism, anxiety/depression and prior history of pulmonary embolism in 2013 after hysterectomy came to ER with worsening shortness of breath. Patient was seen at [facility] ER last week and was diagnosed with asthma exacerbation and pneumonia. Patient was given a prescription for Keflex at that time. Patient has been taking her medications and did not improve her symptoms. Today morning patient has increasing short of breath which made her to come back to the hospital. Patient says that she's been having persistent cough with greenish sputum and exertional dyspnea with walking or talking. Patient also felt sharp midsternal chest pain which is resolved now. Denied any fever or chills currently. Patient did have elevated d-dimer at [facility] and had CT to rule out pulmonary embolism which was negative at that time. EKG showed normal sinus rhythm with possible left atrial enlargement and LBBB. New changes compared to EKG at [facility]. Chest x-ray showed no acute cardiopulmonary process. D-dimer 0.69 Troponin 2 negative Review of Systems Constitutional: Patient denies any fever or chills . No generalized weakness or weight loss. Abdomen: Patient denied nausea vomiting and diarrhea and abdominal pain. Cardiovascular: Patient denies any chest pain or short of breath no palpitations. Respiratory: Cough with sputum production and shortness of breath Neurologic: Patient denied any numbness or tingling headache. Musculoskeletal: Patient denies any complaints of joint swelling or deformity. Skin: Negative Psychiatric: Negative Endocrine: No heat or cold intolerance. No recent weight gain. Genitourinary: No dysuria or hematuria. All other 14 point ROS negative except the above Past Medical History Past Medical History: Asthma, Diabetes Mellitus, Fibromyalgia, Pneumonia, Pulmonary Embolus (PE), Sleep Apnea/CPAP/BIPAP, Thyroid Disorder Additional Past Medical History / Comment(s): CECILIA maintained on CPAP pressure of 10 cm of water, morbid obesity.lumbar disc disease(sx), past thyroid goiter(sx). "alternates constipation/diarrhea, vit d deficiency, anxiety/depression. HX PE AFTER HYSTERECTOMY 2013 History of Any Multi-Drug Resistant Organisms: None Reported Past Surgical History: Back Surgery, Bariatric Surgery, Section, Hysterectomy, Tubal Ligation Additional Past Surgical History / Comment(s): LAP BAND 2007, THYROIDECTOMY,lumbar fusion 2004 and revision done 2005(pt stated has had r ecurrent fevers since andthat testing has'nt found anything conclusive yet",colonoscopy/egd, partial hysterectomy "still has ovaries" Repair of left ureter, x2 c-sections. claudio carapl tunnel release.pt stated at age 13 had a sx on pancreas but poor historian as to details Past Anesthesia/Blood Transfusion Reactions: No Reported Reaction Additional Past Anesthesia/Blood Transfusion Reaction / Comment(s): blood transfusion at age 13 Past Psychological History: Anxiety, Depression Smoking Status: Former smoker Past Alcohol Use History: Occasional Past Drug Use History: None Reported - Past Family History Mother Family Medical History: No Reported History Additional Family Medical History / Comment(s): Mother is alive at age 66 with history of diabetes, hypertension, hyperlipidemia. Father Additional Family Medical History / Comment(s): Father is alive at age 66 with history of diabetes, hypertension, hyperlipidemia, 2 myocardial infarctions and a stroke. Brother(s) Additional Family Medical History / Comment(s): Patient has 4 brothers and 1 sister with no major medical problems. Patient has 2 sons with no major medical problems. Medications and Allergies Home Medications Medication Instructions Recorded Confirmed Type metFORMIN HCL 1,000 mg PO BID 03/09/14 08/30/18 History Multivit-Min36/Iron/Folic Acid 1 tab PO DAILY 12/22/16 08/30/18 History [Geritol Complete Tablet] Liraglutide [Victoza 2-Soham] 1.2 mg SQ DAILY 05/10/17 08/30/18 History Montelukast [Singulair] 10 mg PO HS 05/10/17 08/30/18 History Linaclotide [Linzess] 72 mcg PO DAILY 10/27/17 08/30/18 History Vitamin E 180mg 180 mg PO DAILY 10/27/17 08/30/18 History busPIRone HCL 15 mg PO BID 10/27/17 08/30/18 History Cholecalciferol [Vitamin D3] 1,000 unit PO DAILY 07/13/18 08/30/18 History Levothyroxine Sodium [Synthroid] 175 mcg PO DAILY 07/13/18 08/30/18 History Albuterol Sulfate [Proair Hfa] 1 - 2 puff INHALATION RT-QID PRN 08/30/18 08/30/18 History Cephalexin [Keflex] 500 mg PO BID 08/30/18 08/30/18 History Cinnamon Bark [Cinnamon] 500 - 1,000 mg PO BID 08/30/18 08/30/18 History FLUoxetine HCL [PROzac] 40 mg PO DAILY 08/30/18 08/30/18 History Insulin Glargine,Hum.rec.anlog 15 units SQ DAILY 08/30/18 08/30/18 History [Toujeo Solostar] Magnesium(Unknown Dose) 1 tab PO DAILY 08/30/18 08/30/18 History Mometasone/Formoterol [Dulera 200 2 puff INHALATION RT-DAILY 08/30/18 08/30/18 History Mcg/5 Mcg Inhaler] Omeprazole 20 mg PO DAILY 08/30/18 08/30/18 History Pioglitazone [Actos] 30 mg PO DAILY 08/30/18 08/30/18 History Allergies Allergy/AdvReac Type Severity Reaction Status Date / Time No Known Allergies Allergy Verified 08/30/18 12:01 Physical Exam Vitals: Vital Signs Temp Pulse Resp BP Pulse Ox 08/30/18 14:40 79 18 130/80 99 08/30/18 14:01 84 08/30/18 13:53 80 08/30/18 12:47 102 H 08/30/18 12:39 100 08/30/18 11:41 98.9 F 98 18 128/74 100 Intake and Output 08/30/18 08/30/18 08/30/18 06:59 14:59 22:59 Other: Weight 110.586 kg PHYSICAL EXAMINATION: Patient is lying in the bed comfortably, no acute distress, awake alert and oriented.. HEENT: Normocephalic. Neck is supple. Pupils reactive. Nostrils clear. Oral cavity is moist. Ears reveal no drainage. Neck reveals no JVD, carotid bruits, or thyromegaly. CHEST EXAMINATION: Trachea is central. Symmetrical expansion. Bibasilar diminished air entry and expiratory wheeze. CARDIAC: Normal S1, S2 with no gallops. No murmurs ABDOMEN: Soft. Bowel sounds normal. No organomegaly. No abdominal bruits. Extremities: reveal no edema. No clubbing or cyanosis Neurologically awake, alert, oriented x3 with well-coordinated movements. No focal deficits noted Skin: No rash or skin lesions. Psychiatric: Coperative. Nonsuicidal Musculoskeletal: No joint swelling or deformity. Normal range of motion. Results CBC & Chem 7: 08/30/18 12:20 08/30/18 12:20 Labs: Abnormal Lab Results - Last 24 Hours (Table) 08/30/18 08/30/18 Range/Units 12:20 12:20 D-Dimer 0.69 H (<0.60) mg/L FEU Creatinine 0.51 L (0.52-1.04) mg/dL Glucose 201 H (74-99) mg/dL Thrombosis Risk Factor Assmnt - DVT/VTE Prophylaxis DVT/VTE Prophylaxis: Pharmacologic Prophylaxis ordered Assessment and Plan Assessment: Acute asthma exacerbation with tracheobronchitis Possible Pneumonia/ CAP failed outpatient therapy Elevated d-dimer. CT negative 4 days ago at [facility]. History of PE after hysterectomy in 2013 Diabetes type 2 Previous history of smoking Anxiety/depression Hypothyroidism Obstructive sleep apnea on CPAP Fibromyalgia Lumbar disc disease History of LAP-BAND surgery in 2007 Morbid obesity with BMI 40.6 DVT prophylaxis. Plan: Patient will be continued on breathing treatments with DuoNeb's, IV steroids with methylprednisolone 60 mg every 6 hourly. Continue with antibiotics in the form of ceftriaxone and azithromycin. Patient was started on heparin drip in the ER. Continue with telemetry monitoring. Cardiology was consulted due to suspected EKG changes. Continue with home medications and insulin dosing and sliding scale. Further recommendations based on the clinical course. Time with Patient: Greater than 30
[2018-08-31] MEDS: methylPREDNISolone SOD SUCCI 125 MG/2 ML VIAL IV SCH ×3 (01:07→12:24)
[2018-08-31] MEDS ORDERED: LEVOTHYROXINE 75 MCG TAB PO SCH (06:30)
[2018-08-31] MEDS ORDERED: LEVOTHYROXINE 100 MCG TAB PO SCH (06:30)
[2018-08-31] MEDS: IPRATROPIUM-ALBUTEROL 3 ML NEB INHALATION SCH ×4 (07:24→19:30)
[2018-08-31 07:32] LABS: Glucose,Whole Blood 233 mg/dL (75-99)
--- NOTE | 2018-08-31 08:10 | XR ---
EXAMINATION TYPE: XR chest 2V DATE OF EXAM: 08/31/2018 COMPARISON: Prior chest x-ray 08/30/2018 HISTORY: Pneumonia TECHNIQUE: Frontal and lateral views of the chest are obtained. FINDINGS: There is no pleural effusion or pneumothorax seen. No airspace disease. The cardiac silhou ette size is within normal limits. The osseous structures are intact. There are overlying cardiac l alvin. IMPRESSION: No acute cardiopulmonary process.
[2018-08-31 08:33] VITALS: RESP 18
[2018-08-31] MEDS ORDERED: NON-FORMULARY DRUG (Liraglutide [Victoza 2-Pak] 1.2 MG) SQ SCH (09:00)
[2018-08-31 09:02] LABS: Cholesterol 234 mg/dL (<200); HDL Cholesterol 95 mg/dL (40-60); LDL Cholesterol,Calculated 129 mg/dL (0-99); Triglycerides 48 mg/dL (<150)
--- NOTE | 2018-08-31 09:50 | ECHOF ---
Referral Reason:cp, aortic stenosis` MEASUREMENTS -------- HEIGHT: 165.1 cm WEIGHT: 110.2 kg BP: 117/70 RVIDd: 3.4 cm (< 3.3) IVSd: 1.2 cm (0.6 - 1.1) LVIDd: 4.2 cm (3.9 - 5.3) LVPWd: 1.3 cm (0.6 - 1.1) IVSs: 1.7 cm LVIDs: 3.4 cm LVPWs: 1.7 cm LA Diam: 3.0 cm (2.7 - 3.8) LAESV Index (A-L): 35.46 ml/m Ao Diam: 3.7 cm (2.0 - 3.7) AV Cusp: 2.2 cm (1.5 - 2.6) MV EXCURSION: 14.577 mm (> 18.000) MV EF SLOPE: 110 mm/s (70 - 150) EPSS: 0.5 cm MV E Renato: 1.21 m/s MV DecT: 203 ms MV A Renato: 1.31 m/s MV E/A Ratio: 0.93 AV maxP.44 mmHg AV meanP.60 mmHg RAP: 5.00 mmHg RVSP: 42.06 mmHg FINDINGS -------- Sinus rhythm. This was a technically difficult study with suboptimal views. The left ventricular size is normal. There is mild concentric left ventricular hypertrophy. Overa ll left ventricular systolic function is normal with, an EF between 55 - 60 %. The right ventricle is mildly enlarged. LA is moderately dilated 34-39 ml/m2 The right atrium is normal in size. 3 ml of Lumason was utilized for enhancement of images. The aortic valve was not well visualized. The mitral valve leaflets are mildly thickened. Mild mitral regurgitation is present. Mild tricuspid regurgitation present. There is mild pulmonary hypertension. The right ventricular systolic pressure, as measured by Doppler, is 42.06mmHg. The pulmonic valve was not well visualized. Trace/mild (physiologic) pulmonic regurgitation. The aortic root size is normal. Normal inferior vena cava with normal inspiratory collapse consistent with estimated right atrial pre ssure of 5 mmHg. There is no pericardial effusion. CONCLUSIONS -------- 1. Sinus rhythm. 2. This was a technically difficult study with suboptimal views. 3. The left ventricular size is normal. 4. There is mild concentric left ventricular hypertrophy. 5. Overall left ventricular systolic function is normal with, an EF between 55 - 60 %. 6. The right ventricle is mildly enlarged. 7. LA is moderately dilated 34-39 ml/m2 8. 3 ml of Lumason was utilized for enhancement of images. 9. The aortic valve was not well visualized. 10. The mitral valve leaflets are mildly thickened. 11. Mild mitral regurgitation is present. 12. Mild tricuspid regurgitation present. 13. There is mild pulmonary hypertension. 14. Trace/mild (physiologic) pulmonic regurgitation. 15. The aortic root size is normal. 16. Normal inferior vena cava with normal inspiratory collapse consistent with estimated right atrial pressure of 5 mmHg. 17. There is no pericardial effusion. TENTERER: Pau Ramírez RDCS
[2018-08-31] MEDS: INSULIN ASPART (NovoLOG) 100 UNIT/ML VIAL SQ SCH ×4 (10:02→20:52)
[2018-08-31] MEDS: metFORMIN 500 MG TAB PO SCH ×2 (10:03→17:22)
[2018-08-31] MEDS: FLUoxetine HCL 20 MG CAP PO SCH (10:03)
[2018-08-31] MEDS: PANTOPRAZOLE 40 MG TABLET PO SCH (10:04)
[2018-08-31] MEDS: CHOLECALCIFEROL 1,000 UNIT TAB PO SCH (10:04)
[2018-08-31] MEDS: ASPIRIN 325 MG TAB PO SCH (10:08)
[2018-08-31] MEDS: PIOGLITAZONE 30 MG TAB PO SCH (10:40)
[2018-08-31] MEDS: VITAMIN E (DL,TOCOPHERYL ACET) 400 UNIT CAP PO SCH (10:40)
[2018-08-31] MEDS: INSULIN DETEMIR (LEVEMIR) 100 UNIT/ML SYR SQ SCH (10:40)
--- NOTE | 2018-08-31 10:49 | P.CRDCN ---
History of Present Illness History of present illness: This is a pleasant 48-year-old -Mosoth[place] female past medical history significant for asthma, diabetes mellitus, obstructive sleep apnea, PE in the past after hysterectomy in 2013, LAP-BAND surgery and former nicotine dependence. She denies history of coronary artery disease and has never seen a customer data technician for any reason. We have asked to see her in consultation for symptoms of chest pain. She states last week Thursday she suffered what she thought was an asthma attack. She went to [facility] for evaluation and was diagnosed with pneumonia and started on antibiotics. Over the course of the weekend she continued to feel increasingly short of breath, fatigued and was continuing to cough. There is no real improvement in her symptoms. Yesterday she started feeling pain described as a tight sensation in the midsternal region with deep inspiration or cough. There is no radiation of this discomfort through to the back, down the arm, into the neck or the jaw. She denies associated dizziness, palpitations, nausea, vomiting or diaphoresis. She is seen and examined sitting up in bed resting comfortably in no acute distress. She has been initiated on a heparin infusion as well as IV antibiotics upon admission. Per the emergency department notes she underwent CAT scan of [facility] that was reviewed and negative for PE. EKG reveals sinus mechanism with left bundle branch block pattern. Compared to EKGs obtained in June of this year this appears to be chronic. Chest x-ray on admission is negative for an acute cardiopulmonary process with no evidence of infiltrate or heart failure. Repeat this morning is the same. Laboratory data reviewed, WBC 9.3, hemoglobin 12, 344, d-dimer 0.69, sodium 138, potassium 4.4, creatinine 0.51, magnesium 1.7, cardiac enzymes negative 3, NT proBNP 226, LDL 129, HDL 95. She takes no daily cardiac medications. Most recent echocardiogram obtained 2013 reveals preserved left ventricular systolic function with ejection fraction 55-60%, mean gradient across the aortic valve 7 mmHg, trace to mild mitral regurgitation, mild tricuspid regurgitation and moderate pulmonary hypertension with an RVSP of 53 mmHg. At the time of my exam: CONSTITUTIONAL: Denies fever. Denies chills. EYES: Denies blurred vision. Denies vision changes. Denies eye pain. EARS, NOSE, MOUTH & THROAT: Denies headache. Denies sore throat. Denies ear pain. CARDIOVASCULAR: Denies chest pain. Denies shortness of breath. Denies orthopnea. Denies PND. Denies palpitations. RESPIRATORY: Complains of blood pressure cough. GASTROINTESTINAL: Denies abdominal pain. Denies diarrhea. Denies constipation. Denies nausea. Denies vomiting. MUSCULOSKELETAL: Denies myalgias. INTEGUMENTARY: Denies pruitis. Denies rash. NEUROLOGIC: Denies numbness. Denies tingling. Denies weakness. PSYCHIATRIC: Denies anxiety. Denies depression. ENDOCRINE: Denies fatigue. Denies weight change. Denies polydipsia. Denies polyurina. GENITOURINARY: Denies burning, hematuria or urgency with micturation. HEMATOLOGIC: Denies history of anemia. Denies bleeding. Blood pressure 122/80 heart rate 83 afebrile maintaining oxygen saturation on room air GENERAL: This is a 48-year-old -Mosotho female in no apparent distress at the time of my examination. HEENT: Head is atraumatic, normocephalic. Pupils are equal, round. Sclerae anicteric. Conjunctivae are clear. Mucous membranes of the mouth are moist. Neck is supple. There is no jugular venous distention. No carotid bruit is heard. LUNGS: Faint expiratory wheezes noted, no rales or rhonchi. No chest wall tenderness is noted on palpation or with deep breathing. HEART: Regular rate and rhythm with faint systolic ejection murmur at the base, no rubs or gallops. S1 and S2 heard. ABDOMEN: Soft, nontender. Bowel sounds are heard. No organomegaly noted. EXTREMITIES: No evidence of peripheral edema and no calf tenderness noted. VASCULAR: Radial and dorsalis pedis pulses palpated, no evidence of clubbing. NEUROLOGIC: Patient is awake, alert and oriented x3. ASSESSMENT Acute exacerbation of asthma with tracheal bronchitis Chest pain, pleuritic. Atypical for angina. An acute coronary event has been ruled out. Left bundle branch block Diabetes mellitus Dyslipidemia History of aortic stenosis noted on echo 2013 Pulmonary hypertension, RVSP 53 mmHg 2013 Former nicotine dependence PLAN An acute coronary event has been ruled out. Discontinue heparin infusion. Obtain 2D echocardiogram and doppler study to assess cardiac structure and function. Due to her diabetes, initiate on atorvastatin 40 mg daily and lisinopril 2.5 mg daily. Ongoing medical management. Follow up in the office with Dr. Salas for outpatient stress testing once tracheobronchitis has resolved. Thank you kindly for this consultation. Nurse Practitioner note has been reviewed, I agree with a documented findings and plan of care. Patient was seen and examined. Past Medical History Past Medical History: Asthma, Diabetes Mellitus, Fibromyalgia, Pneumonia, P ulmonary Embolus (PE), Sleep Apnea/CPAP/BIPAP, Thyroid Disorder Additional Past Medical History / Comment(s): CECILIA maintained on CPAP pressure of 10 cm of water, morbid obesity.lumbar disc disease(sx), past thyroid goiter(sx). "alternates constipation/diarrhea, vit d deficiency, anxiety/depression. HX PE AFTER HYSTERECTOMY 2013 History of Any Multi-Drug Resistant Organisms: None Reported Past Surgical History: Back Surgery, Bariatric Surgery, Section, Hysterectomy, Tubal Ligation Additional Past Surgical History / Comment(s): LAP BAND 2007, THYROIDECTOMY,lumbar fusion 2004 and revision done 2005(pt stated has had recurrent fevers since andthat testing has'nt found anything conclusive yet",colonoscopy/egd, partial hysterectomy "still has ovaries" Repair of left ureter, x2 c-sections. claudio carapl tunnel release.pt stated at age 13 had a sx on pancreas but poor historian as to details Past Anesthesia/Blood Transfusion Reactions: No Reported Reaction Additional Past Anesthesia/Blood Transfusion Reaction / Comment(s): blood transfusion at age 13 Past Psychological History: Anxiety, Depression Smoking Status: Former smoker Past Alcohol Use History: Occasional Past Drug Use History: None Reported - Past Family History Mother Family Medical History: No Reported History Additional Family Medical History / Comment(s): Mother is alive at age 66 with history of diabetes, hypertension, hyperlipidemia. Father Additional Family Medical History / Comment(s): Father is alive at age 66 with history of diabetes, hypertension, hyperlipidemia, 2 myocardial infarctions and a stroke. Brother(s) Additional Family Medical History / Comment(s): Patient has 4 brothers and 1 sister with no major medical problems. Patient has 2 sons with no major medical problems. Medications and Allergies Home Medications Medication Instructions Recorded Confirmed Type metFORMIN HCL 1,000 mg PO BID 03/09/14 08/30/18 History Multivit-Min36/Iron/Folic Acid 1 tab PO DAILY 12/22/16 08/30/18 History [Geritol Complete Tablet] Liraglutide [Victoza 2-Soham] 1.2 mg SQ DAILY 05/10/17 08/30/18 History Montelukast [Singulair] 10 mg PO HS 05/10/17 08/30/18 History Linaclotide [Linzess] 72 mcg PO DAILY 10/27/17 08/30/18 History Vitamin E 180mg 180 mg PO DAILY 10/27/17 08/30/18 History busPIRone HCL 15 mg PO BID 10/27/17 08/30/18 History Cholecalciferol [Vitamin D3] 1,000 unit PO DAILY 07/13/18 08/30/18 History Levothyroxine Sodium [Synthroid] 175 mcg PO DAILY 07/13/18 08/30/18 History Albuterol Sulfate [Proair Hfa] 1 - 2 puff INHALATION RT-QID PRN 08/30/18 08/30/18 History Cephalexin [Keflex] 500 mg PO BID 08/30/18 08/30/18 History Cinnamon Bark [Cinnamon] 500 - 1,000 mg PO BID 08/30/18 08/30/18 History FLUoxetine HCL [PROzac] 40 mg PO DAILY 08/30/18 08/30/18 History Insulin Glargine,Hum.rec.anlog 15 units SQ DAILY 08/30/18 08/30/18 History [Toujeo Solostar] Magnesium(Unknown Dose) 1 tab PO DAILY 08/30/18 08/30/18 History Mometasone/Formoterol [Dulera 200 2 puff INHALATION RT-DAILY 08/30/18 08/30/18 History Mcg/5 Mcg Inhaler] Omeprazole 20 mg PO DAILY 08/30/18 08/30/18 History Pioglitazone [Actos] 30 mg PO DAILY 08/30/18 08/30/18 History Allergies Allergy/AdvReac Type Severity Reaction Status Date / Time No Known Allergies Allergy Verified 08/30/18 12:01 Physical Exam Vitals: Vital Signs Temp Pulse Pulse Resp BP BP Pulse Ox 08/31/18 07:40 96 08/31/18 07:27 92 100 08/31/18 04:00 98.6 F 88 16 117/70 100 08/31/18 00:00 101 H 16 08/30/18 23:45 98.9 F 101 H 16 116/69 98 08/30/18 20:34 84 08/30/18 20:28 88 08/30/18 20:00 101 H 16 08/30/18 18:53 98.4 F 87 18 143/79 98 08/30/18 18:52 18 08/30/18 18:12 91 08/30/18 17:54 85 98 08/30/18 17:00 87 18 128/89 100 08/30/18 14:40 79 18 130/80 99 08/30/18 14:01 84 08/30/18 13:53 80 08/30/18 12:47 102 H 08/30/18 12:39 100 08/30/18 11:41 98.9 F 98 18 128/74 100 Intake and Output 08/30/18 08/31/18 08/31/18 22:59 06:59 14:59 Intake Total 240 82.61 Balance 240 82.61 Intake: Intake, IV Titration 82.61 Amount Heparin Sod,Pork in 0.45% 82.61 NaCl 25,000 unit In 0.45 % NaCl 1 250ml.bag @ 9 UNITS/KG/HR 9.953 mls/hr IV .Q24H REPLACED BY [facility] Rx#: [id number] Oral 240 Other: Voiding Method Toilet Toilet # Voids 2 Results 08/30/18 12:20 08/30/18 12:20 Cardiac Enzymes 08/30/18 08/30/18 08/30/18 Range/Units 12:20 12:20 18:40 AST 20 (14-36) U/L Troponin I <0.012 <0.012 (0.000-0.034) ng/mL 08/31/18 Range/Units 00:53 AST (14-36) U/L Troponin I <0.012 (0.000-0.034) ng/mL Coagulation 08/30/18 08/30/18 08/31/18 Range/Units 12:20 23:15 07:30 PT 10.4 (9.0-12.0) sec APTT 23.5 33.7 H 42.7 H (22.0-30.0) sec CBC 08/30/18 Range/Units 12:20 WBC 9.3 (3.8-10.6) k/uL RBC 4.30 (3.80-5.40) m/uL Hgb 12.0 (11.4-16.0) gm/dL Hct 38.5 (34.0-46.0) % Plt Count 344 (150-450) k/uL Comprehensive Metabolic Panel 08/30/18 Range/Units 12:20 Sodium 138 (137-145) mmol/L Potassium 4.4 (3.5-5.1) mmol/L Chloride 107 (98-107) mmol/L Carbon Dioxide 24 (22-30) mmol/L BUN 8 (7-17) mg/dL Creatinine 0.51 L (0.52-1.04) mg/dL Glucose 201 H (74-99) mg/dL Calcium 9.1 (8.4-10.2) mg/dL AST 20 (14-36) U/L ALT 28 (9-52) U/L Alkaline Phosphatase 82 (38-126) U/L Total Protein 7.1 (6.3-8.2) g/dL Albumin 3.6 (3.5-5.0) g/dL Current Medications Generic Name Dose Route Start Last Admin Trade Name Freq PRN Reason Stop Dose Admin Albuterol/Ipratropium 3 ml 08/30/18 20:00 08/31/18 07:24 Duoneb 0.5 Mg-3 Mg/3 Ml Soln INHALATION 3 ml RT-QID ULISSES Administration Albuterol/Ipratropium 3 ml 08/30/18 19:03 Duoneb 0.5 Mg-3 Mg/3 Ml Soln INHALATION RT-Q2H PRN Shortness Of Breath Or Wheezing Aspirin 325 mg 08/31/18 09:00 Aspirin PO DAILY REPLACED BY [facility] Azithromycin 500 mg 08/31/18 16:00 Zithromax PO Q24H REPLACED BY [facility] Cholecalciferol 1,000 unit 08/31/18 09:00 Vitamin D3 PO DAILY REPLACED BY [facility] Fluoxetine HCl 40 mg 08/31/18 09:00 Prozac PO DAILY REPLACED BY [facility] Guaifenesin/Dextromethorphan 10 ml 08/30/18 21:03 Robitussin Dm PO Q6H PRN Cough Sodium Chloride 1,000 mls @ 20 mls/hr 08/30/18 12:11 08/30/18 12:27 Saline 0.9% IV 08/31/18 12:10 Not Given .Q24H STA Sodium Chloride 1,000 mls @ 20 mls/hr 08/30/18 15:00 08/30/18 17:27 Saline 0.9% IV 20 mls/hr .Q24H [facility]ISSES Administration Heparin Sodium/Sodium Chloride 250 mls @ 9.953 mls/hr 08/30/18 15:00 08/31/18 01:52 25,000 unit/ Sodium Chloride IV 11.71 units/kg/hr .Q24H [facility] 12.953 mls/hr Titration Protocol 9 UNITS/KG/HR Ceftriaxone Sodium 1 gm/ 50 mls @ 100 mls/hr 08/31/18 16:00 Sodium Chloride IVPB Q24H [facility] Insulin Aspart 0 unit 08/30/18 21:00 08/30/18 21:15 Novolog SQ 8 unit ACHS ULISSES Administration Protocol Insulin Detemir 15 unit 08/31/18 09:00 Levemir SQ DAILY [facility] Levothyroxine Sodium 100 mcg 08/31/18 06:30 08/31/18 06:04 Synthroid PO Not Given DAILY@0630 REPLACED BY [facility] Levothyroxine Sodium 75 mcg 08/31/18 06:30 08/31/18 06:04 Synthroid PO Not Given DAILY@0630 REPLACED BY [facility] Metformin HCl 1,000 mg 08/30/18 17:30 08/30/18 18:42 Glucophage PO 1,000 mg AC-BID ULISSES Administration Methylprednisolone Sodium Succinate 60 mg 08/30/18 18:00 08/31/18 06:03 Solu-Medrol IV 60 mg Q6HR ULISSES Administration Miscellaneous Information 1 each 08/30/18 15:02 Pneumonia Protocol Utilized PO ONCE PRN Per Protocol Montelukast Sodium 10 mg 08/30/18 21:00 08/30/18 21:15 Singulair PO 10 mg HS ULISSES Administration Multivitamins 1 each 08/31/18 12:00 Theragran PO DAILY@1200 REPLACED BY [facility] Nitroglycerin 0.4 mg 08/30/18 15:00 Nitrostat SUBLINGUAL Q5M PRN Chest Pain Linaclotide [Linzess 72 mcg 08/31/18 09:00 ] 72 Mcg PO DAILY REPLACED BY [facility] Pantoprazole Sodium 40 mg 08/31/18 07:30 Protonix PO AC-BRKFST REPLACED BY [facility] Pioglitazone HCl 30 mg 08/31/18 09:00 Actos PO DAILY REPLACED BY [facility] Vitamin E 400 unit 08/31/18 09:00 Vitamin E PO DAILY ULISSES Intake and Output 08/30/18 08/31/18 08/31/18 22:59 06:59 14:59 Intake Total 240 82.61 Balance 240 82.61 Intake: Intake, IV Titration 82.61 Amount Heparin Sod,Pork in 0.45% 82.61 NaCl 25,000 unit In 0.45 % NaCl 1 250ml.bag @ 9 UNITS/KG/HR 9.953 mls/hr IV .Q24H [facility] Rx#: [id number] Oral 240 Other: Voiding Method Toilet Toilet # Voids 2 08/30/18 12:20 08/30/18 12:20
[2018-08-31] MEDS ORDERED: ACETAMINOPHEN TAB 325 MG TAB PO PRN (11:22)
[2018-08-31] MEDS: LISINOPRIL 2.5 MG TAB PO SCH (11:29)
[2018-08-31] MEDS: ATORVASTATIN 40 MG TAB PO SCH (11:29)
[2018-08-31 11:53] LABS: Glucose,Whole Blood 244 mg/dL (75-99)
[2018-08-31] MEDS: MULTIVITAMINS, THERA 1 EACH TAB PO SCH (12:26)
--- NOTE | 2018-08-31 12:31 | P.CNPUL ---
History of Present Illness Consult date: 08/31/18 Reason for consult: dyspnea, chest pain, asthma Chief complaint: shortness of breath History of present illness: This is a 48-year-old female who presented to the emergency department complaining of shortness of breath. The patient states that last week she had an asthma attack and went to [facility]. She states she had a computed tomography scan which showed bilateral pneumonia and was negative for pulmonary embolism. She states she was sent home with antibiotics (Keflex) and didn't feel like she is getting better. She states on Thursday she began to have chest pain. And she presented to the emergency department again yesterday. The patient states she gets short of breath when she walks, talks, laysflat. She denies any fevers and chills. She states that she does have a cough which was nonproductive of phlegm until this morning. She states she was able to produce a little bit of white/reyes sputum. She does use a pro-air 4-5 times per day. She is also on Dulera normally once per day but lately since she's been sick she's been using it twice a day. She states these do not seem to help her. She is also on Singulair nightly. She does have seasonal ALLERGIES as well. There are no pets in her home. She is a lifelong never smoker. 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 The patient did have an echocardiogram which showed pulmonary hypertension with an RVSP of 42 mmHg. In 2013 the patient also had a echocardiogram which showed an RVSP of 53 mmHg. The patient has a history of pulmonary embolism in 2013 after a hysterectomy. She was on Coumadin for 6 months and that has been discontinued. She also has known obstructive sleep apnea and states that she is on CPAP nightly. She states that she will need a new CPAP machine as hers is more than 5 years old. The patient states she did have a slightly elevated MARK in the past and was evaluated by rheumatology. She was told that she has no autoimmune or rheumatologic disorder to explain the elevated MARK. The patient's chest x- rays reviewed and shows no acute process. She does have an elevated eosinophil count at 600. Review of Systems All systems: negative Past Medical History Past Medical History: Asthma, Diabetes Mellitus, Fibromyalgia, Pneumonia, Pulmonary Embolus (PE), Sleep Apnea/CPAP/BIPAP, Thyroid Disorder Additional Past Medical History / Comment(s): CECILIA maintained on CPAP pressure of 10 cm of water, morbid obesity.lumbar disc disease(sx), past thyroid goiter(sx). "alternates constipation/diarrhea, vit d deficiency, anxiety/depression. HX PE AFTER HYSTERECTOMY 2013 History of Any Multi-Drug Resistant Organisms: None Reported Past Surgical History: Back Surgery, Bariatric Surgery, Section, Hysterectomy, Tubal Ligation Additional Past Surgical History / Comment(s): LAP BAND 2007, THYROIDE CTOMY,lumbar fusion 2004 and revision done 2005(pt stated has had recurrent fevers since andthat testing has'nt found anything conclusive yet",colonoscopy/egd, partial hysterectomy "still has ovaries" Repair of left ureter, x2 c-sections. claudio carapl tunnel release.pt stated at age 13 had a sx on pancreas but poor historian as to details Past Anesthesia/Blood Transfusion Reactions: No Reported Reaction Additional Past Anesthesia/Blood Transfusion Reaction / Comment(s): blood transfusion at age 13 Past Psychological History: Anxiety, Depression Smoking Status: Former smoker Past Alcohol Use History: Occasional Past Drug Use History: None Reported - Past Family History Mother Family Medical History: No Reported History Additional Family Medical History / Comment(s): Mother is alive at age 66 with history of diabetes, hypertension, hyperlipidemia. Father Additional Family Medical History / Comment(s): Father is alive at age 66 with history of diabetes, hypertension, hyperlipidemia, 2 myocardial infarctions and a stroke. Brother(s) Additional Family Medical History / Comment(s): Patient has 4 brothers and 1 sister with no major medical problems. Patient has 2 sons with no major medical problems. Medications and Allergies Home Medications Medication Instructions Recorded Confirmed Type metFORMIN HCL 1,000 mg PO BID 03/09/14 08/30/18 History Multivit-Min36/Iron/Folic Acid 1 tab PO DAILY 12/22/16 08/30/18 History [Geritol Complete Tablet] Liraglutide [Victoza 2-Soham] 1.2 mg SQ DAILY 05/10/17 08/30/18 History Montelukast [Singulair] 10 mg PO HS 05/10/17 08/30/18 History Linaclotide [Linzess] 72 mcg PO DAILY 10/27/17 08/30/18 History Vitamin E 180mg 180 mg PO DAILY 10/27/17 08/30/18 History busPIRone HCL 15 mg PO BID 10/27/17 08/30/18 History Cholecalciferol [Vitamin D3] 1,000 unit PO DAILY 07/13/18 08/30/18 History Levothyroxine Sodium [Synthroid] 175 mcg PO DAILY 07/13/18 08/30/18 History Albuterol Sulfate [Proair Hfa] 1 - 2 puff INHALATION RT-QID PRN 08/30/18 08/30/18 History Cephalexin [Keflex] 500 mg PO BID 08/30/18 08/30/18 History Cinnamon Bark [Cinnamon] 500 - 1,000 mg PO BID 08/30/18 08/30/18 History FLUoxetine HCL [PROzac] 40 mg PO DAILY 08/30/18 08/30/18 History Insulin Glargine,Hum.rec.anlog 15 units SQ DAILY 08/30/18 08/30/18 History [Toujeo Solostar] Magnesium(Unknown Dose) 1 tab PO DAILY 08/30/18 08/30/18 History Mometasone/Formoterol [Dulera 200 2 puff INHALATION RT-DAILY 08/30/18 08/30/18 History Mcg/5 Mcg Inhaler] Omeprazole 20 mg PO DAILY 08/30/18 08/30/18 History Pioglitazone [Actos] 30 mg PO DAILY 08/30/18 08/30/18 History Allergies Allergy/AdvReac Type Severity Reaction Status Date / Time No Known Allergies Allergy Verified 08/30/18 12:01 Physical Exam Osteopathic Statement: *. No significant issues noted on an osteopathic structural exam other than those noted in the History and Physical/Consult. Vitals: Vital Signs Temp Pulse Pulse Resp BP BP BP 08/31/18 11:40 97.8 F 94 18 132/77 08/31/18 11:10 96 08/31/18 11:01 92 08/31/18 08:00 98.7 F 83 18 122/80 08/31/18 07:40 96 08/31/18 07:27 92 08/31/18 04:00 98.6 F 88 16 117/70 08/31/18 00:00 101 H 16 08/30/18 23:45 98.9 F 101 H 16 116/69 08/30/18 20:34 84 08/30/18 20:28 88 08/30/18 20:00 101 H 16 08/30/18 18:53 98.4 F 87 18 143/79 08/30/18 18:52 18 08/30/18 18:12 91 08/30/18 17:54 85 08/30/18 17:00 87 18 128/89 08/30/18 14:40 79 18 130/80 08/30/18 14:01 84 08/30/18 13:53 80 08/30/18 12:47 102 H 08/30/18 12:39 100 Pulse Ox 08/31/18 11:40 99 08/31/18 11:10 08/31/18 11:01 08/31/18 08:00 99 08/31/18 07:40 08/31/18 07:27 100 08/31/18 04:00 100 08/31/18 00:00 08/30/18 23:45 98 08/30/18 20:34 08/30/18 20:28 08/30/18 20:00 08/30/18 18:53 98 08/30/18 18:52 08/30/18 18:12 08/30/18 17:54 98 08/30/18 17:00 100 08/30/18 14:40 99 08/30/18 14:01 08/30/18 13:53 08/30/18 12:47 08/30/18 12:39 Intake and Output 08/30/18 08/31/18 08/31/18 22:59 06:59 14:59 Intake Total 240 82.61 200 Balance 240 82.61 200 Intake: Intake, IV Titration 82.61 Amount Heparin Sod,Pork in 0.45% 82.61 NaCl 25,000 unit In 0.45 % NaCl 1 250ml.bag @ 9 UNITS/KG/HR 9.953 mls/hr IV .Q24H [facility] Rx#: [id number] Oral 240 Other 200 Other: Voiding Method Toilet Toilet Toilet # Voids 2 Gen.: Patient is alert and oriented 3, no acute distress, obese Cardiovascular: Regular rate and rhythm, S1/S2 Lungs: Diminished breath sounds bilaterally otherwise clear Abdomen: Soft nontender nondistended positive bowel sounds Extremities: Trace edema Results - Laboratory Findings CBC and BMP: 08/30/18 12:20 08/30/18 12:20 PT/INR, D-dimer PT 10.4 sec (9.0-12.0) 08/30/18 12:20 INR 1.0 (<1.2) 08/30/18 12:20 D-Dimer 0.69 mg/L FEU (<0.60) H 08/30/18 12:20 Abnormal lab findings: Abnormal Labs 08/30/18 08/30/18 08/30/18 12:20 12:20 18:34 APTT D-Dimer 0.69 H Creatinine 0.51 L Glucose 201 H POC Glucose (mg/dL) 201 H Cholesterol LDL Cholesterol, Calc HDL Cholesterol 08/30/18 08/30/18 08/31/18 20:35 23:15 07:29 APTT 33.7 H D-Dimer Creatinine Glucose POC Glucose (mg/dL) 299 H 233 H Cholesterol LDL Cholesterol, Calc HDL Cholesterol 08/31/18 08/31/18 08/31/18 07:30 07:30 11:51 APTT 42.7 H D-Dimer Creatinine Glucose POC Glucose (mg/dL) 244 H Cholesterol 234 H LDL Cholesterol, Calc 129 H HDL Cholesterol 95 H - Diagnostic Findings Chest x-ray: report reviewed, image reviewed CT scan - chest: report reviewed Assessment and Plan Assessment: Acute exacerbation of asthma, severe persistent Eosinophilic asthma - suspect underlying HP as a cause of fleeting infiltrates History of pulmonary embolism in 2013 provoked by hysterectomy surgery Atypical chest pain Elevated D-Dimer with CTA negative for PE on 08/26/2018 Dyspnea on exertion Moderate pulmonary hypertension with an RVSP of 42 mmHg (2014 - 53 mmHg) Obstructive sleep apnea compliant with CPAP Obesity Diabetes mellitus type 2 Dyslipidemia Left bundle-branch block Anxiety/depression/fibromyalgia Hypothyroidism History of lap band surgery O2 to maintain saturation > or = 90%, currently on room air Check IgE/HP/Allergy panel - suspect component of HP as a cause of fleeting infiltrates, patient reports multiple episodes on pneumonia every year Will check JAMA level as well VQ scan to be done to rule out CTEPH due to PH and history of PE, patient would benefit from evaluation by PH specialist, this will be arranged through our office Continue CPAP nightly and with naps Pulmicort, Dukellybs, Luis Albertoir Steroid taper ABX: Azithromycin and Rocephin, can be de-escalated from pulmonary standpoint Cardiology recommendations - discontinue heparin drip Outpatient PFT, Niox GI and DVT prophylaxis: Heparin subcu and Protonix Will address patient's CPAP issues in the office, will likely need retitration study Weight loss is discussed and encouraged Patient has an appointment at our office on 09/13/18 Thank you for this consultation. We will continue to follow along.
--- NOTE | 2018-08-31 13:47 | NM ---
EXAMINATION TYPE: NM pul vent and perfuse DATE OF EXAM: 08/31/2018 COMPARISON: Prior chest x-ray 08/31/2018 HISTORY: Dyspnea, pulmonary hypertension, chronic pulmonary embolism TECHNIQUE: Utilizing inhalation of 69.6 mCi Tc 99m DTPA aerosol and intravenous injection of 5.36 mC i of Tc 99m MAA, ventilation and perfusion images are acquired post injection in multiple projections . FINDINGS: Relatively homogenous uptake of radiopharmaceutical on ventilation and perfusion images. There is a s mall subsegmental ventilation/perfusion mismatch in the posterior costophrenic sulcus level on the ri ght. IMPRESSION: Intermediate probability for pulmonary embolism
[2018-08-31] MEDS: methylPREDNISolone SOD SUCCI 40 MG/ML 1 ML VIAL IV SCH (15:58)
[2018-08-31] MEDS: HEPARIN SODIUM,PORCINE 5,000 UNIT/ML 1 ML VIAL SQ SCH (15:58)
[2018-08-31] MEDS ORDERED: AZITHROMYCIN 500 MG TAB PO SCH (16:00)
[2018-08-31 16:24] LABS: Glucose,Whole Blood 195 mg/dL (75-99)
[2018-08-31] MEDS: SODIUM CHLORIDE 0.9% 1,000 ML IV SCH ×2 (17:24→19:57)
--- NOTE | 2018-08-31 18:32 | CT ---
EXAMINATION TYPE: CT angio chest with contrast and with 3-D reconstruction renderings DATE OF EXAM: 08/31/2018 5:50 PM COMPARISON: 03/25/2014 HISTORY: Chest pain and cough. CT DLP: 744.2 mGycm Automated exposure control for dose reduction was used. CONTRAST: CTA scan of the thorax is performed with IV Contrast, patient injected with 83ml mL of Isov ue 370, pulmonary embolism protocol. 3-D reconstructions . FINDINGS: AIRWAYS, LUNGS AND PLEURAL SPACES: The lungs are negative for pulmonary edema or negrita pneumonia or m ajor atelectasis. There is no pulmonary volume loss. No pulmonary nodules or bronchogenic mass. In th e distal lung bases bilaterally is a peripheral groundglass opacity pattern, greater on the right. No bronchiectasis. The pattern suggests a nonspecific mild pneumonitis. There is no pleural effusion or pneumothorax seen. The tracheobronchial tree is patent. MEDIASTINUM/FRANCK: There is satisfactory enhancement of the pulmonary artery and its branches, there i s no CT evidence for pulmonary embolism. There is no acute aortic finding. There are no greater than 1 cm mediastinal lymph nodes, but bilateral infrahilar lymph node prominence is noted and may be rela leticia to the nonspecific mild bibasilar pneumonitis pattern. There is no cardiomegaly or pericardial ef fusion. OTHER: No focal skeletal findings. Visualization of thoracic structures are unremarkable. IMPRESSION: 1. NEGATIVE FOR PULMONARY EMBOLISM. 2. BILATERAL LUNG BASE MILD PERIPHERAL PNEUMONITIS PATTERN.
[2018-08-31] MEDS: BUDESONIDE 0.5 MG/2 ML NEBU INHALATION SCH (19:30)
[2018-08-31 20:46] LABS: Glucose,Whole Blood 285 mg/dL (75-99)
[2018-08-31] MEDS: MONTELUKAST 10 MG TAB PO SCH (20:52)
--- NOTE | 2018-08-31 21:44 | P.PN ---
Subjective Progress Note Date: 08/31/18 Principal diagnosis: Acute asthma exacerbation. Severe persistent. Patient is a 48-year-old female with a known history of diabetes type 2, asthma, previous history of smoking, fibromyalgia, obstructive sleep apnea on CPAP, hypothyroidism, anxiety/depression and prior history of pulmonary embolism in 2013 after hysterectomy came to ER with worsening shortness of breath. Patient was seen at [facility] ER last week and was diagnosed with asthma exacerbation and pneumonia. Patient was given a prescription for Keflex at that time. Patient has been taking her medications and did not improve her symptoms. Today morning patient has increasing short of breath which made her to come back to the hospital. Patient says that she's been having persistent cough with greenish sputum and exertional dyspnea with walking or talking. Patient also felt sharp midsternal chest pain which is resolved now. Denied any fever or chills currently. Patient did have elevated d-dimer at [facility] and had CT to rule out pulmonary embolism which was negative at that time. EKG showed normal sinus rhythm with possible left atrial enlargement and LBBB. New changes compared to EKG at [facility]. Chest x-ray showed no acute cardiopulmonary process. D-dimer 0.69 Troponin 2 negative 08/31/2018 Patient says that her breathing is slightly better today. 2-D echocardiogram showed ejection fraction 55-60% and mild pulmonary hypertension. Left atrium is moderately dilated. VQ scan was ordered to rule out pulmonary embolism. Otherwise patient is being continued on IV steroids and breathing treatments and antibiotics in the form of ceftriaxone and azithromycin. Patient was seen by pulmonary and suspected hypersensitivity pneumonitis/eosinophilic asthma. IgE/HP/Allergy panel and JAMA levels was ordered. Patient did complain of chest pain with deep breathing but improved compared to yesterday. Heparin has been discontinued. No fever no chills. Current medications reviewed. Objective - Vital Signs Vital signs: Vital Signs Temp 98.4 F 08/31/18 15:15 Pulse 98 08/31/18 19:45 Resp 18 08/31/18 15:15 BP 117/67 08/31/18 15:15 Pulse Ox 100 08/31/18 15:15 Intake & Output 08/31/18 08/31/18 09/01/18 06:59 18:59 06:59 Intake Total 82.61 518 Balance 82.61 518 Intake: Intake, IV Titration 82.61 Amount Heparin Sod,Pork in 0.45% 82.61 NaCl 25,000 unit In 0.45 % NaCl 1 250ml.bag @ 9 UNITS/KG/HR 9.953 mls/hr IV .Q24H [facility] Rx#: [id number] Oral 318 Other 200 Other: Voiding Method Toilet Toilet # Voids 2 1 - Exam PHYSICAL EXAMINATION: Patient is lying in the bed comfortably, no acute distress, awake alert and oriented.. HEENT: Normocephalic. Neck is supple. Pupils reactive. Nostrils clear. Oral cavity is moist. Ears reveal no drainage. Neck reveals no JVD, carotid bruits, or thyromegaly. CHEST EXAMINATION: Trachea is central. Symmetrical expansion. Expiratory wheezing and diminished bibasilar air entry.. CARDIAC: Normal S1, S2 with no gallops. No murmurs ABDOMEN: Soft. Bowel sounds normal. No organomegaly. No abdominal bruits. Extremities: reveal no edema. No clubbing or cyanosis Neurologically awake, alert, oriented x3 with well-coordinated movements. No focal deficits noted Skin: No rash or skin lesions. Psychiatric: Coperative. Nonsuicidal Musculoskeletal: No joint swelling or deformity. Normal range of motion. - Labs CBC & Chem 7: 08/30/18 12:20 08/30/18 12:20 Labs: Abnormal Lab Results - Last 24 Hours (Table) 08/30/18 08/31/18 08/31/18 Range/Units 23:15 07:29 07:30 APTT 33.7 H (22.0-30.0) sec POC Glucose (mg/dL) 233 H (75-99) mg/dL Cholesterol 234 H (<200) mg/dL LDL Cholesterol, Calc 129 H (0-99) mg/dL HDL Cholesterol 95 H (40-60) mg/dL 08/31/18 08/31/18 08/31/18 Range/Units 07:30 11:51 16:19 APTT 42.7 H (22.0-30.0) sec POC Glucose (mg/dL) 244 H 195 H (75-99) mg/dL Cholesterol (<200) mg/dL LDL Cholesterol, Calc (0-99) mg/dL HDL Cholesterol (40-60) mg/dL 08/31/18 Range/Units 20:44 APTT (22.0-30.0) sec POC Glucose (mg/dL) 285 H (75-99) mg/dL Cholesterol (<200) mg/dL LDL Cholesterol, Calc (0-99) mg/dL HDL Cholesterol (40-60) mg/dL Microbiology - Last 24 Hours (Table) 08/30/18 12:20 Blood Culture - Preliminary Blood No Growth after 24 hours Assessment and Plan Assessment: Acute asthma exacerbation - severe persistent with tracheobronchitis Eosinophilic asthma. Suspect hypersensitivity pneumonitis Possible Pneumonia/ CAP failed outpatient therapy Mild pulmonary hypertension Elevated d-dimer. CT negative 4 days ago at [facility]. History of PE after hysterectomy in 2013 Diabetes type 2 Previous history of smoking Anxiety/depression Hypothyroidism Obstructive sleep apnea on CPAP Fibromyalgia Lumbar disc disease History of LAP-BAND surgery in 2007 Morbid obesity with BMI 40.6 DVT prophylaxis. Plan: Patient will be continued on breathing treatments with DuoNeb's, IV steroids with methylprednisolone 60 mg every 6 hourly. Continue with antibiotics in the form of ceftriaxone and azithromycin. Heparin has been discontinued. VQ scan was ordered to rule out PE. Oxygen therapy.. Continue with telemetry monitoring. 2-D echocardiogram was done. Pulmonary and cardiology on board. Continue with home medications and insulin dosing and sliding scale. Further recommendations based on the clinical course. Time with Patient: Greater than 30
[2018-09-01] MEDS: methylPREDNISolone SOD SUCCI 40 MG/ML 1 ML VIAL IV SCH ×2 (00:32→08:18)
[2018-09-01] MEDS: HEPARIN SODIUM,PORCINE 5,000 UNIT/ML 1 ML VIAL SQ SCH ×2 (00:33→08:18)
[2018-09-01] MEDS: SODIUM CHLORIDE 0.9% 1,000 ML IV SCH (05:14)
[2018-09-01] MEDS ORDERED: LEVOTHYROXINE 100 MCG TAB PO SCH (06:30)
[2018-09-01 06:54] LABS: Glucose,Whole Blood 237 mg/dL (75-99)
[2018-09-01] MEDS: BUDESONIDE 0.5 MG/2 ML NEBU INHALATION SCH (07:07)
[2018-09-01] MEDS: IPRATROPIUM-ALBUTEROL 3 ML NEB INHALATION SCH ×2 (07:07→11:49)
[2018-09-01] MEDS: metFORMIN 500 MG TAB PO SCH (08:11)
[2018-09-01] MEDS: INSULIN ASPART (NovoLOG) 100 UNIT/ML VIAL SQ SCH ×2 (08:17→12:05)
[2018-09-01] MEDS: INSULIN DETEMIR (LEVEMIR) 100 UNIT/ML SYR SQ SCH (08:18)
[2018-09-01] MEDS: CHOLECALCIFEROL 1,000 UNIT TAB PO SCH (08:18)
[2018-09-01] MEDS: FLUoxetine HCL 20 MG CAP PO SCH (08:18)
[2018-09-01] MEDS: PANTOPRAZOLE 40 MG TABLET PO SCH (08:18)
[2018-09-01] MEDS: ASPIRIN 325 MG TAB PO SCH (08:18)
[2018-09-01] MEDS: VITAMIN E (DL,TOCOPHERYL ACET) 400 UNIT CAP PO SCH (08:18)
[2018-09-01] MEDS: PIOGLITAZONE 30 MG TAB PO SCH (08:18)
[2018-09-01] MEDS: ATORVASTATIN 40 MG TAB PO SCH (08:19)
[2018-09-01] MEDS: LISINOPRIL 2.5 MG TAB PO SCH (08:19)
--- NOTE | 2018-09-01 09:29 | PN ---
PROGRESS NOTE DATE OF SERVICE: 09/01/2018 She is less short of breath and continues to have a cough. She has no wheeze. PHYSICAL EXAMINATION: Respiratory rate is 18, pulse rate of 82, temperature 98.5, blood pressure 114/69. HEENT is unremarkable. Chest reveals occasional rhonchi. Cardiovascular system with an S1, S2. Abdomen is soft. There is no pedal edema. CTA of the chest done on 08/31 shows bilateral basal peripheral pneumonitis like pattern which is consistent with hypersensitivity pneumonitis versus other etiology. IMPRESSION: 1. Acute exacerbation of severe persistent he eosinophilic asthma. 2. Hypersensitivity pneumonitis. 3. Moderate pulmonary hypertension in part due to obstructive sleep apnea. 4. Anxiety, depression. 5. Obesity, status post lap band surgery. Would agree with possible discharge planning on tapering dose of steroids. Increase activity level. She was switched to oral steroids and we would be happy to see her in the outpatient setting if she is discharged. MMODL / IJN: [id number] /
[2018-09-01 11:39] LABS: Glucose,Whole Blood 289 mg/dL (75-99)
[2018-09-01 11:52] VITALS: BP 137/84; PULSE 72; TEMP 99
[2018-09-01] MEDS ORDERED: predniSONE 20 MG TAB PO SCH (12:00)
[2018-09-01] MEDS: MULTIVITAMINS, THERA 1 EACH TAB PO SCH (12:04)
[2018-09-01 16:19] LABS: Hemoglobin A1C 8.5 % (4.0-6.0)
[2018-09-03 13:27] LABS: Alt. alternata IgE Class CLASS I; Alternaria alternata IgE 0.53 kU/L (<0.35); Asperg. fumagatus IgE <0.35 kU/L (<0.35); Asperg. fumagatus IgE Class CLASS 0; Bermuda Grass IgE <0.35 kU/L (<0.35); Birch(Com.Silvr) IgE <0.35 kU/L (<0.35); Birch(Com.Silvr) IgE Class CLASS 0; Cat Epith & Dander IgE 1.13 kU/L (<0.35); Cat Epith & Dander IgE Class CLASS II; Clad herbarum IgE <0.35 kU/L (<0.35); Cockroach IgE <0.35 kU/L (<0.35); Cottonwood IgE <0.35 kU/L (<0.35); Dermato. Pteronyssinus IgE <0.35 kU/L (<0.35); Dermato. farinae IgE <0.35 kU/L (<0.35); Dermato. farinae IgE Class CLASS 0; Dog Dander IgE 0.42 kU/L (<0.35); Elm IgE <0.35 kU/L (<0.35); Maple (Box Elder) IgE <0.35 kU/L (<0.35); Maple (Box Elder) IgE Class CLASS 0; Mountain Cedar IgE <0.35 kU/L (<0.35); Mountain Cedar IgE Class CLASS 0; Mouse Urine IgE Class CLASS 0; Nettle IgE <0.35 kU/L (<0.35); Nettle IgE Class CLASS 0; Oak IgE <0.35 kU/L (<0.35); Penicillium notatum IgE Class CLASS 0; Rough Marshelder IgE <0.35 kU/L (<0.35); Rough Marshelder IgE Class CLASS 0; Timothy Grass IgE <0.35 kU/L (<0.35); White Ash IgE Class CLASS 0
[2018-09-07 00:34] LABS: Alternaria Alternata IgG 10.1 mcg/mL (< 13.6); Aspergillus fumigatus IgG Not detected (Not detected); Aureobasidium pullulans IgG 8.3 mcg/mL (< 13.6); Cladosporium herbarium IgG 39.3 mcg/mL (< 14.7); Saccaharomospora viridis Not detected (Not detected); Saccaharopoly. rectivirgula Not detected (Not detected)
== END 2018-09-01 14:40 | disposition home or self-care (01) ==
LOC: EC 11:27 → 1SOBS 15:02
PROVIDERS: ADMIT Internal Medicine; ATTEND Internal Medicine
DX: J45.51 Severe persistent asthma with (acute) exacerbation (principal); J67.9 Hypersensitivity pneumonitis due to unspecified organic dust; M79.7 Fibromyalgia; G47.33 Obstructive sleep apnea (adult) (pediatric); I27.20 Pulmonary hypertension, unspecified; I44.7 Left bundle-branch block, unspecified; E55.9 Vitamin D deficiency, unspecified; F41.9 Anxiety disorder, unspecified; F32.9 Major depressive disorder, single episode, unspecified; E89.0 Postprocedural hypothyroidism; R94.31 Abnormal electrocardiogram [ECG] [EKG]; E78.5 Hyperlipidemia, unspecified; M51.9 Unspecified thoracic, thoracolumbar and lumbosacral intervertebral disc disorder; E66.01 Morbid (severe) obesity due to excess calories; Z68.41 Body mass index [BMI] 40.0-44.9, adult; J40 Bronchitis, not specified as acute or chronic; I35.0 Nonrheumatic aortic (valve) stenosis; R79.1 Abnormal coagulation profile; R79.89 Other specified abnormal findings of blood chemistry; Z87.01 Personal history of pneumonia (recurrent); E11.9 Type 2 diabetes mellitus without complications; Z79.899 Other long term (current) drug therapy; Z79.890 Hormone replacement therapy; Z79.51 Long term (current) use of inhaled steroids; Z79.4 Long term (current) use of insulin; Z99.89 Dependence on other enabling machines and devices; Z98.84 Bariatric surgery status; Z98.1 Arthrodesis status; Z90.711 Acquired absence of uterus with remaining cervical stump; Z87.891 Personal history of nicotine dependence; Z86.711 Personal history of pulmonary embolism; Z82.49 Family history of ischemic heart disease and other diseases of the circulatory system; Z82.3 Family history of stroke
CPT/HCPCS: 96366 ×2; 96367 ×2; 96372 ×2; 96376 ×4; 96365; 96375; 99291; 36415; 94640 ×5; 94760; 93005; 85379; 86003; 83880; 80061; 80053; 86001; 82164; 83735; 84484 ×2; 85025; 85610; 85730 ×2; 87040; 86609; 86606; 82103; 82785; 83036; 71046 ×2; 71275; 78582; G0378 ×3; C8929; A9540; A9567; J1644 ×4; J2920 ×2; J2930 ×2; J0456; J0696 ×2; J3475; J7512; Q9950; Q9967; 93306

== ENCOUNTER 2019-02-06 17:38 | Emergency (ER) | payer MEDICARE ==
[2019-02-06 17:57] VITALS: RESP 16
[2019-02-06] MEDS ORDERED: SODIUM CHLORIDE 0.9% 1,000 ML IV STA (18:19)
[2019-02-06] MEDS ORDERED: ONDANSETRON 4 MG/2 ML VIAL IVP STA (18:19)
[2019-02-06] MEDS ORDERED: KETOROLAC 30 MG/ML 1 ML VIAL IVP STA (18:19)
[2019-02-06] MEDS ORDERED: diphenhydrAMINE 50 MG/ML 1 ML VIAL IVP STA (18:20)
--- NOTE | 2019-02-06 18:25 | ED ---
General Adult HPI - General Chief complaint: Headache Stated complaint: abdominal pain, headache Time Seen by Provider: 02/06/19 18:10 Source: patient Mode of arrival: ambulatory Limitations: no limitations - History of Present Illness Initial comments: Dictation was produced using [employer] dictation software. please excuse any grammatical, word or spelling errors. Chief Complaint: 48-year-old female with past medical history of asthma, diabetes, fiber myalgia presents with headache and urinary symptoms. History of Present Illness: Is a 48-year-old female she has past medical history of headaches. She states she gets his headache frequently. She states she gets them approximately once or twice a year. She states she's been under a lot of stress. She reports that stress typically causes her headaches to come on. She states her her usual headache symptoms. Patient states that her headaches has been ongoing for the last several days. They normally go away with Tylenol however this time it has not improved. She denies any neurologic deficits. Patient also is concerned about her urinary symptoms. She states she is having urinary urgency and urinary frequency. Denies any flank tenderness. Denies any constitutional symptoms. The ROS documented in this emergency department record has been reviewed and confirmed by me. Those systems with pertinent positive or negative responses have been documented in the HPI. All other systems are other negative and/or noncontributory. PHYSICAL EXAM: General Impression: Alert and oriented x3, not in acute distress HEENT: Normocephalic atraumatic, extra-ocular movements intact, pupils equal and reactive to light bilaterally, mucous membranes moist. Cardiovascular: Heart regular rate and rhythm, S1&S2 audible, no murmurs, rubs or gallops Chest: Lungs clear to auscultation bilaterally, no rhonchi, no wheeze, no rales Abdomen: Bowel sounds present, abdomen soft, non-tender, non-distended, no organomegaly Musculoskeletal: Pulses present and equal in all extremities, no peripheral edema Motor: no focal deficits noted Neurological: CN II-XII grossly intact, no focal motor or sensory deficits noted Skin: Intact with no visualized rashes Psych: Normal affect and mood ED course: 48-year-old female presents with chief complaint of headache and urinary symptoms. Vital signs upon arrival are within acceptable limits. No indication at this time given that there is no concern for intracranial mass. Chart review shows that patient had an MRI performed 2018 showing no acute processes. Patient has no neuro deficits on physical examination and per history. She does not report that this headache is worse at life and it was not thunderclap in nature.Patient reevaluated and still complains of headache though mildly improved. Patient given magnesium Decadron. She is reevaluated several minutes after that with improvement of symptoms. Urinalysis unremarkable for urinary tract infection. Patient has no complaints of abdominal pain at this time. No concern for acute appendicitis or diverticulitis. No indication for imaging or further laboratory evaluation at this time. Patient clear for discharge. She is told to follow-up with primary care physician. Return parameters discussed. - Related Data Home Medications Medication Instructions Recorded Confirmed metFORMIN HCL 1,000 mg PO BID 03/09/14 02/06/19 Multivit-Min36/Iron/Folic Acid 1 tab PO DAILY 12/22/16 02/06/19 [Geritol Complete Tablet] Liraglutide [Victoza 2-Soham] 1.2 mg SQ DAILY 05/10/17 02/06/19 Montelukast [Singulair] 10 mg PO HS 05/10/17 02/06/19 Linaclotide [Linzess] 72 mcg PO DAILY 10/27/17 02/06/19 Vitamin E 180mg 180 mg PO DAILY 10/27/17 02/06/19 busPIRone HCL 15 mg PO BID 10/27/17 02/06/19 Levothyroxine Sodium [Synthroid] 150 mcg PO DAILY 07/13/18 02/06/19 Albuterol Sulfate [Proair Hfa] 1 - 2 puff INHALATION RT-QID PRN 08/30/18 02/06/19 Cinnamon Bark [Cinnamon] 500 - 1,000 mg PO BID 08/30/18 02/06/19 FLUoxetine HCL [PROzac] 40 mg PO DAILY 08/30/18 02/06/19 Insulin Glargine,Hum.rec.anlog 15 units SQ DAILY 08/30/18 02/06/19 [Toumari Solostar] Pioglitazone [Actos] 30 mg PO DAILY 08/30/18 02/06/19 Enalapril [Vasotec] 5 mg PO DAILY 02/06/19 02/06/19 Fluticasone/Vilanterol [Breo 1 puff INHALATION RT-DAILY 02/06/19 02/06/19 Ellipta 200-25 Mcg INH] Magnesium Oxide [Mag-Ox] 250 mg PO DAILY 02/06/19 02/06/19 Allergies Allergy/AdvReac Type Severity Reaction Status Date / Time No Known Allergies Allergy Verified 02/06/19 18:43 Review of Systems ROS Statement: Those systems with pertinent positive or pertinent negative responses have been documented in the HPI. ROS Other: All systems not noted in ROS Statement are negative. Past Medical History Past Medical History: Asthma, Diabetes Mellitus, Fibromyalgia, Pneumonia, Pulmonary Embolus (PE), Sleep Apnea/CPAP/BIPAP, Thyroid Disorder Additional Past Medical History / Comment(s): CECILIA maintained on CPAP pressure of 10 cm of water, morbid obesity.lumbar disc disease(sx), past thyroid goiter(sx). "alternates constipation/diarrhea, vit d deficiency, anxiety/depression. HX PE AFTER HYSTERECTOMY 2013 History of Any Multi-Drug Resistant Organisms: None Reported Past Surgical History: Back Surgery, Bariatric Surgery, Section, Hysterectomy, Tubal Ligation Additional Past Surgical History / Comment(s): LAP BAND 2007, THYROIDECTOMY,lumbar fusion 2004 and revision done 2005(pt stated has had recurrent fevers since andthat testing has'nt found anything conclusive yet",colonoscopy/egd, partial hysterectomy "still has ovaries" Repair of left ureter, x2 c-sections. claudio carapl tunnel release.pt stated at age 13 had a sx on pancreas but poor historian as to details Past Anesthesia/Blood Transfusion Reactions: No Reported Reaction Additional Past Anesthesia/Blood Transfusion Reaction / Comment(s): blood transfusion at age 13 Past Psychological History: Anxiety, Depression Smoking Status: Former smoker Past Alcohol Use History: Occasional Past Drug Use History: None Reported - Past Family History Mother Family Medical History: No Reported History Additional Family Medical History / Comment(s): Mother is alive at age 66 with history of diabetes, hypertension, hyperlipidemia. Father Additional Family Medical History / Comment(s): Father is alive at age 66 with history of diabetes, hypertension, hyperlipidemia, 2 myocardial infarctions and a stroke. Brother(s) Additional Family Medical History / Comment(s): Patient has 4 brothers and 1 sister with no major medical problems. Patient has 2 sons with no major medical problems. General Exam Limitations: no limitations Course Vital Signs 02/06/19 02/06/19 17:55 18:39 Temperature 98.8 F Pulse Rate 88 Respiratory 16 16 Rate Blood Pressure 130/74 O2 Sat by Pulse 100 Oximetry Medical Decision Making - Lab Data Lab Results 02/06/19 Range/Units 19:30 Urine Color Yellow Urine Appearance Clear (Clear) Urine pH 5.5 (5.0-8.0) Ur Specific [place] 1.025 (1.001-1.035) Urine Protein Negative (Negative) Urine Glucose (UA) Negative (Negative) Urine Ketones Negative (Negative) Urine Blood Negative (Negative) Urine Nitrite Negative (Negative) Urine Bilirubin Negative (Negative) Urine Urobilinogen <2.0 (<2.0) mg/dL Ur Leukocyte Esterase Negative (Negative) Disposition Clinical Impression: Headache Disposition: HOME SELF-CARE Condition: Good Instructions (If sedation given, give patient instructions): Acute Headache (ED) Is patient prescribed a controlled substance at d/c from ED?: No Referrals: Sindhu Morrow MD [Primary Care Provider] - 1-2 days Time of Disposition: 20:38
[2019-02-06 19:47] LABS: Appearance,Urine Clear (Clear); Bilirubin,Urine Negative (Negative); Blood,Urine Negative (Negative); Color,Urine Yellow; Glucose,Urine (UA) Negative (Negative); Ketones,Urine Negative (Negative); Leukocyte Esterase,Urine Negative (Negative); Nitrite,Urine Negative (Negative); PH, Urine 5.5 (5.0-8.0); Protein,Urine Negative (Negative); Specific Gravity,Urine 1.025 (1.001-1.035); Urobilinogen,Urine <2.0 mg/dL (<2.0)
[2019-02-06] MEDS ORDERED: DEXAMETHASONE SOD PHOSPHATE 10 MG/ML 1 ML VIAL IV STA (20:00)
[2019-02-06] MEDS: MAGNESIUM SULFATE-D5W PMX 1 GM in DEXTROSE/WATER 1 100ML.BAG IVPB SCH ×2 (20:31→21:45)
[2019-02-06] MEDS ORDERED: SUMAtriptan SUCCINATE 6 MG/0.5 ML VIAL SQ STA (21:50)
[2019-02-06 23:03] VITALS: BP 116/76; PULSE 65; TEMP 98.2
== END 2019-02-06 22:50 | disposition home or self-care (01) ==
LOC: EC 17:38
DX: R51 Headache (principal); R39.15 Urgency of urination; R35.0 Frequency of micturition; E11.9 Type 2 diabetes mellitus without complications; F41.9 Anxiety disorder, unspecified; F32.9 Major depressive disorder, single episode, unspecified; E07.9 Disorder of thyroid, unspecified; J45.909 Unspecified asthma, uncomplicated; G47.33 Obstructive sleep apnea (adult) (pediatric); E66.01 Morbid (severe) obesity due to excess calories; Z79.51 Long term (current) use of inhaled steroids; Z79.890 Hormone replacement therapy; Z79.4 Long term (current) use of insulin; Z79.899 Other long term (current) drug therapy; Z87.891 Personal history of nicotine dependence; Z99.89 Dependence on other enabling machines and devices; Z68.41 Body mass index [BMI] 40.0-44.9, adult; Z90.89 Acquired absence of other organs
CPT/HCPCS: 81003; 87086; 96374; 96375 ×3; 96361; 96372; 99284; J3030; J1200; J1100; J2405; J1885; J3475

== ENCOUNTER 2019-03-27 11:27 | Emergency (ER) | payer MEDICARE, OTHER ==
[2019-03-27 11:34] VITALS: RESP 18; TEMP 98.7
--- NOTE | 2019-03-27 12:12 | ED ---
General Adult HPI - General Chief complaint: Shortness of Breath Stated complaint: SOB Time Seen by Provider: 03/27/19 11:35 Source: patient, RN notes reviewed Mode of arrival: wheelchair Limitations: no limitations - History of Present Illness Initial comments: This is a 48-year-old female who presents to the emergency department stating that since she's very short of breath. Patient states when she sitting still she is fine but she gets up and walks very far she's very short of breath. Patient denies any chest pain. Patient denies any fever. Patient denies any cough or sputum production. Patient states she does have a history of asthma but she doesn't feel like it's her asthma. Patient also states she's had pneumonia twice this year. Patient denies headache patient denies numbness weakness per patient denies lightheadedness dizziness or near syncopal episode. Patient denies abdominal pain patient denies nausea vomiting diarrhea. Patient denies any swelling to the legs or calf tenderness. Patient states she went to urgent care and they sent her to the emergency department - Related Data Home Medications Medication Instructions Recorded Confirmed metFORMIN HCL 1,000 mg PO BID 03/09/14 03/27/19 Liraglutide [Victoza 2-Soham] 1.2 mg SQ DAILY 05/10/17 03/27/19 Linaclotide [Linzess] 72 mcg PO DAILY 10/27/17 03/27/19 Vitamin E 180mg 180 mg PO DAILY 10/27/17 03/27/19 busPIRone HCL 15 mg PO BID 10/27/17 03/27/19 Levothyroxine Sodium [Synthroid] 150 mcg PO DAILY 07/13/18 03/27/19 Albuterol Sulfate [Proair Hfa] 1 - 2 puff INHALATION RT-QID PRN 08/30/18 03/27/19 Cinnamon Bark [Cinnamon] 500 - 1,000 mg PO BID 08/30/18 03/27/19 FLUoxetine HCL [PROzac] 40 mg PO DAILY 08/30/18 03/27/19 Insulin Glargine,Hum.rec.anlog 15 units SQ DAILY 08/30/18 03/27/19 [Loren Ayala] Pioglitazone [Actos] 30 mg PO DAILY 08/30/18 03/27/19 Enalapril [Vasotec] 5 mg PO DAILY 02/06/19 03/27/19 Fluticasone/Vilanterol [Breo 1 puff INHALATION RT-DAILY 02/06/19 03/27/19 Ellipta 200-25 Mcg INH] Butalb/Acetaminophen/Caffeine 1 cap PO Q8H PRN 03/27/19 03/27/19 [Fioricet 50-300-40 mg Capsule] Cyanocobalamin [Vitamin B-12] 500 mcg PO DAILY 03/27/19 03/27/19 Gabapentin 600 mg PO BID 03/27/19 03/27/19 Ibuprofen [Motrin] 800 mg PO TID PRN 03/27/19 03/27/19 Allergies Allergy/AdvReac Type Severity Reaction Status Date / Time No Known Allergies Allergy Verified 03/27/19 11:44 Review of Systems ROS Statement: Those systems with pertinent positive or pertinent negative responses have been documented in the HPI. ROS Other: All systems not noted in ROS Statement are negative. Past Medical History Past Medical History: Asthma, Diabetes Mellitus, Fibromyalgia, Pneumonia, Pulmonary Embolus (PE), Sleep Apnea/CPAP/BIPAP, Thyroid Disorder Additional Past Medical History / Comment(s): CECILIA maintained on CPAP pressure of 10 cm of water, morbid obesity.lumbar disc disease(sx), past thyroid goiter(sx ). "alternates constipation/diarrhea, vit d deficiency, anxiety/depression. HX PE AFTER HYSTERECTOMY 2013 History of Any Multi-Drug Resistant Organisms: None Reported Past Surgical History: Back Surgery, Bariatric Surgery, Section, Hysterectomy, Tubal Ligation Additional Past Surgical History / Comment(s): LAP BAND 2007, THYROIDECTOMY,lumbar fusion 2004 and revision done 2005(pt stated has had recurrent fevers since andthat testing has'nt found anything conclusive yet",colonoscopy/egd, partial hysterectomy "still has ovaries" Repair of left ureter, x2 c-sections. claudio carapl tunnel release.pt stated at age 13 had a sx on pancreas but poor historian as to details Past Anesthesia/Blood Transfusion Reactions: No Reported Reaction Additional Past Anesthesia/Blood Transfusion Reaction / Comment(s): blood transfusion at age 13 Past Psychological History: Anxiety, Depression Smoking Status: Former smoker Past Alcohol Use History: Occasional Past Drug Use History: None Reported - Past Family History Mother Family Medical History: No Reported History Additional Family Medical History / Comment(s): Mother is alive at age 66 with history of diabetes, hypertension, hyperlipidemia. Father Additional Family Medical History / Comment(s): Father is alive at age 66 with history of diabetes, hypertension, hyperlipidemia, 2 myocardial infarctions and a stroke. Brother(s) Additional Family Medical History / Comment(s): Patient has 4 brothers and 1 sister with no major medical problems. Patient has 2 sons with no major medical problems. General Exam - General Exam Comments Initial Comments: GENERAL: Patient is well-developed and well-nourished. Patient is nontoxic and well- hydrated and is in no acute distress. ENT: Neck is soft and supple. No significant lymphadenopathy is noted. Oropharynx is clear. Moist mucous membranes. Neck has full range of motion without eliciting any pain. EYES: The sclera were anicteric and conjunctiva were pink and moist. Extraocular movements were intact and pupils were equal round and reactive to light. Eyelids were unremarkable. PULMONARY: Unlabored respirations. Good breath sounds bilaterally. No audible rales rhonchi or wheezing was noted. CARDIOVASCULAR: There is a regular rate and rhythm without any murmurs gallops or rubs. ABDOMEN: Soft and nontender with normal bowel sounds. No palpable organomegaly was noted. There is no palpable pulsatile mass. SKIN: Skin is clear with no lesions or rashes and otherwise unremarkable. NEUROLOGIC: Patient is alert and oriented x3. Cranial nerves II through XII are grossly intact. Motor and sensory are also intact. Normal speech, volume and content. Symmetrical smile. MUSCULOSKELETAL: Normal extremities with adequate strength and full range of motion. No lower extremity swelling or edema. No calf tenderness. LYMPHATICS: No significant lymphadenopathy is noted PSYCHIATRIC: Normal psychiatric evaluation. Limitations: no limitations Course Vital Signs 03/27/19 03/27/19 11:33 13:17 Temperature 98.7 F Pulse Rate 92 72 Respiratory 18 18 Rate Blood Pressure 132/81 135/83 O2 Sat by Pulse 99 95 Oximetry Medical Decision Making - Medical Decision Making EKG shows normal sinus rhythm at 71 bpm CA interval is 186 QRS is 142 QT intervals 460 QTC is 499. Patient has left bundle branch block patient previously had a left bundle branch block. Chest x-ray shows no acute abnormality. I will begin the room on multiple occasions patient was oxygenating 99% on room air at all times and never had any signs of shortness of breath. Patient denied any pain. I discussed all the results with the patient and she was comfortable going home and following up with her primary medical care doctor. - Lab Data Result diagrams: 03/27/19 12:15 03/27/19 12:15 Lab Results 03/27/19 03/27/19 03/27/19 Range/Units 12:15 12:15 12:15 WBC 8.4 (3.8-10.6) k/uL RBC 4.16 (3.80-5.40) m/uL Hgb 11.9 (11.4-16.0) gm/dL Hct 38.8 (34.0-46.0) % MCV 93.3 (80.0-100.0) fL MCH 28.6 (25.0-35.0) pg MCHC 30.6 L (31.0-37.0) g/dL RDW 14.3 (11.5-15.5) % Plt Count 286 (150-450) k/uL Neutrophils % 70 % Lymphocytes % 20 % Monocytes % 5 % Eosinophils % 4 % Basophils % 1 % Neutrophils # 5.9 (1.3-7.7) k/uL Lymphocytes # 1.6 (1.0-4.8) k/uL Monocytes # 0.4 (0-1.0) k/uL Eosinophils # 0.3 (0-0.7) k/uL Basophils # 0.1 (0-0.2) k/uL PT 10.2 (9.0-12.0) sec INR 0.9 (<1.2) APTT 24.4 (22.0-30.0) sec D-Dimer 0.42 (<0.60) mg/L FEU Sodium 140 (137-145) mmol/L Potassium 4.3 (3.5-5.1) mmol/L Chloride 105 (98-107) mmol/L Carbon Dioxide 29 (22-30) mmol/L Anion Gap 6 mmol/L BUN 10 (7-17) mg/dL Creatinine 0.61 (0.52-1.04) mg/dL Est GFR (CKD-EPI)AfAm >90 (>60 ml/min/1.73 sqM) Est GFR (CKD-EPI)NonAf >90 (>60 ml/min/1.73 sqM) Glucose 91 (74-99) mg/dL Calcium 8.8 (8.4-10.2) mg/dL Magnesium 1.9 (1.6-2.3) mg/dL Total Bilirubin 0.2 (0.2-1.3) mg/dL AST 21 (14-36) U/L ALT 21 (9-52) U/L Alkaline Phosphatase 83 (38-126) U/L Troponin I (0.000-0.034) ng/mL NT-Pro-B Natriuret Pep pg/mL Total Protein 7.0 (6.3-8.2) g/dL Albumin 3.7 (3.5-5.0) g/dL 03/27/19 03/27/19 Range/Units 12:15 12:15 WBC (3.8-10.6) k/uL RBC (3.80-5.40) m/uL Hgb (11.4-16.0) gm/dL Hct (34.0-46.0) % MCV (80.0-100.0) fL MCH (25.0-35.0) pg MCHC (31.0-37.0) g/dL RDW (11.5-15.5) % Plt Count (150-450) k/uL Neutrophils % % Lymphocytes % % Monocytes % % Eosinophils % % Basophils % % Neutrophils # (1.3-7.7) k/uL Lymphocytes # (1.0-4.8) k/uL Monocytes # (0-1.0) k/uL Eosinophils # (0-0.7) k/uL Basophils # (0-0.2) k/uL PT (9.0-12.0) sec INR (<1.2) APTT (22.0-30.0) sec D-Dimer (<0.60) mg/L FEU Sodium (137-145) mmol/L Potassium (3.5-5.1) mmol/L Chloride (98-107) mmol/L Carbon Dioxide (22-30) mmol/L Anion Gap mmol/L BUN (7-17) mg/dL Creatinine (0.52-1.04) mg/dL Est GFR (CKD-EPI)AfAm (>60 ml/min/1.73 sqM) Est GFR (CKD-EPI)NonAf (>60 ml/min/1.73 sqM) Glucose (74-99) mg/dL Calcium (8.4-10.2) mg/dL Magnesium (1.6-2.3) mg/dL Total Bilirubin (0.2-1.3) mg/dL AST (14-36) U/L ALT (9-52) U/L Alkaline Phosphatase (38-126) U/L Troponin I <0.012 (0.000-0.034) ng/mL NT-Pro-B Natriuret Pep 155 pg/mL Total Protein (6.3-8.2) g/dL Albumin (3.5-5.0) g/dL Disposition Clinical Impression: Dyspnea Disposition: HOME SELF-CARE Condition: Good Instructions (If sedation given, give patient instructions): Dyspnea (ED) Is patient prescribed a controlled substance at d/c from ED?: No Referrals: Sindhu Morrow MD [Primary Care Provider] - 1-2 days Time of Disposition: 13:32
[2019-03-27 12:30] LABS: Basophils # (A) 0.1 k/uL (0-0.2); Basophils % (A) 1 %; Eosinophils # (A) 0.3 k/uL (0-0.7); Eosinophils % (A) 4 %; HCT 38.8 % (34.0-46.0); HGB 11.9 gm/dL (11.4-16.0); Lymphocytes # (A) 1.6 k/uL (1.0-4.8); Lymphocytes % (A) 20 %; MCH 28.6 pg (25.0-35.0); MCHC 30.6 g/dL (31.0-37.0); MCV 93.3 fL (80.0-100.0); Mean Platelet Volume 7.6; Monocytes # (A) 0.4 k/uL (0-1.0); Monocytes % (A) 5 %; Neutrophils # (A) 5.9 k/uL (1.3-7.7); Neutrophils % (A) 70 %; Platelet Count 286 k/uL (150-450); RBC 4.16 m/uL (3.80-5.40); RDW 14.3 % (11.5-15.5); WBC 8.4 k/uL (3.8-10.6)
[2019-03-27 12:41] LABS: ALT 21 U/L (9-52); AST 21 U/L (14-36); African American GFR (CKD) >90 (>60 ml/min/1.73 sqM); Albumin 3.7 g/dL (3.5-5.0); Alkaline Phosphatase 83 U/L (38-126); Anion Gap 6 mmol/L; Blood Urea Nitrogen 10 mg/dL (7-17); Calcium 8.8 mg/dL (8.4-10.2); Carbon Dioxide 29 mmol/L (22-30); Chloride 105 mmol/L (98-107); Glucose 91 mg/dL (74-99); Magnesium 1.9 mg/dL (1.6-2.3); Potassium 4.3 mmol/L (3.5-5.1); Sodium 140 mmol/L (137-145); Total Bilirubin 0.2 mg/dL (0.2-1.3)
[2019-03-27 12:46] LABS: D-Dimer 0.42 mg/L FEU (<0.60); INR 0.9 (<1.2); Partial Thromboplastin Time 24.4 sec (22.0-30.0); Prothrombin Time 10.2 sec (9.0-12.0)
--- NOTE | 2019-03-27 12:50 | XR ---
EXAMINATION TYPE: XR chest 2V DATE OF EXAM: 03/27/2019 HISTORY: difficulty breathing. REFERENCE: Previous study dated 08/31/2018. FINDINGS: Heart size upper limits of normal. The lungs are clear. Pleural spaces are clear. IMPRESSION: BORDERLINE CARDIOMEGALY.
[2019-03-27 13:19] VITALS: BP 135/83; PULSE 72
== END 2019-03-27 13:52 | disposition home or self-care (01) ==
LOC: EC 11:27
DX: R06.00 Dyspnea, unspecified (principal); I44.7 Left bundle-branch block, unspecified; E11.9 Type 2 diabetes mellitus without complications; J45.909 Unspecified asthma, uncomplicated; E07.9 Disorder of thyroid, unspecified; G47.33 Obstructive sleep apnea (adult) (pediatric); E04.9 Nontoxic goiter, unspecified; F41.9 Anxiety disorder, unspecified; F32.9 Major depressive disorder, single episode, unspecified; E66.01 Morbid (severe) obesity due to excess calories; Z68.41 Body mass index [BMI] 40.0-44.9, adult; Z79.890 Hormone replacement therapy; Z79.4 Long term (current) use of insulin; Z79.51 Long term (current) use of inhaled steroids; Z79.899 Other long term (current) drug therapy; Z86.711 Personal history of pulmonary embolism; Z87.891 Personal history of nicotine dependence; Z98.84 Bariatric surgery status
CPT/HCPCS: 36415; 71046; 80053; 83735; 83880; 84484; 85025; 85379; 85610; 85730; 93005; 99285